=== PATIENT | male | born 1955 | race Caucasian/White ===

== ENCOUNTER → 2017-08-15 10:18 | Outpatient (CLI) | payer OTHER, SELFPAY ==
[2017-08-15 11:44] LABS: ALB/GLOB Ratio 0.8 RATIO (0.9-2.4); AST(SGOT) 29 U/L (15-37); Alanine Aminotransfer ALT/SGPT 42 U/L (16-61); Albumin, Serum 3.5 g/dL (3.2-5.0); Alkaline Phosphatase 47 U/L (45-117); Anion Gap 10 (5-15); BUN 15 mg/dL (7-18); BUN/Creat Ratio 15.9 RATIO (10-20); Calcium,Total 8.8 mg/dL (8.5-10.1); Chloride 105 mmol/L (98-107); Creatinine, Serum 0.94 mg/dL (0.70-1.30); EST Glomerular Filtration Rate 86 mL/min (>60); Est Glom Filt Rate - Afr Amer 104 mL/min (>60); Globulin 4.2 g/dL (2.2-4.2); Glucose 100 mg/dL (74-106); Protein, Total 7.7 g/dL (6.4-8.2); Sodium Level 140 mmol/L (136-145)
== END ==
PROVIDERS: Family Provider Family Medicine; PCP Family Medicine; Visit Provider Nurse Practitioner Family
DX: I10 Essential (primary) hypertension (principal)
CPT/HCPCS: 36415; 80053

== ENCOUNTER → 2017-11-23 10:58 | Outpatient (CLI) | payer OTHER, SELFPAY ==
[2017-11-23 12:15] LABS: Erythrocyte Sedimentation Rate 20 mm/hr (0-20)
[2017-11-23 12:33] LABS: Rheumatoid Factor < 10.0 IU/mL (<15)
== END ==
PROVIDERS: Family Provider Family Medicine; PCP Family Medicine; Referring Provider Family Medicine; Visit Provider Family Medicine
DX: M06.9 Rheumatoid arthritis, unspecified (principal)
CPT/HCPCS: 36415; 85652; 86431

== ENCOUNTER → 2018-08-31 09:03 | Outpatient (CLI) | payer OTHER, SELFPAY ==
[2018-08-31 08:40] VITALS: BMI 35.6
[2018-08-31 12:48] LABS: ALB/GLOB Ratio 0.9 RATIO (0.9-2.4); AST(SGOT) 15 U/L (15-37); Alanine Aminotransfer ALT/SGPT 18 U/L (16-61); Albumin, Serum 3.6 g/dL (3.2-5.0); Alkaline Phosphatase 54 U/L (45-117); Anion Gap 5 (5-15); BUN 19 mg/dL (7-18); BUN/Creat Ratio 21.1 RATIO (10-20); Chloride 104 mmol/L (98-107); EST Glomerular Filtration Rate 90 mL/min (>60); Est Glom Filt Rate - Afr Amer 109 mL/min (>60); Globulin 3.8 g/dL (2.2-4.2); Glucose 88 mg/dL (74-106); Potassium 4.3 mmol/L (3.5-5.1); Protein, Total 7.4 g/dL (6.4-8.2); Sodium Level 138 mmol/L (136-145)
== END ==
PROVIDERS: Family Provider Family Medicine; PCP Family Medicine; Visit Provider Family Medicine
DX: M06.9 Rheumatoid arthritis, unspecified (principal); I10 Essential (primary) hypertension; M19.90 Unspecified osteoarthritis, unspecified site; Z98.1 Arthrodesis status
CPT/HCPCS: 36415; 80053

== ENCOUNTER → 2019-09-13 14:06 | Outpatient (CLI) | payer MEDICARE, SELFPAY ==
[2019-09-13 13:37] VITALS: BMI 34.9
[2019-09-13 15:50] LABS: AST(SGOT) 22 U/L (15-37); Alanine Aminotransfer ALT/SGPT 20 U/L (16-61); Albumin, Serum 3.9 g/dL (3.2-5.0); Alkaline Phosphatase 53 U/L (45-117); Anion Gap 5 (5-15); BUN 20 mg/dL (7-18); BUN/Creat Ratio 17.5 RATIO (10-20); Calcium,Total 9.1 mg/dL (8.5-10.1); Chloride 100 mmol/L (98-107); Creatinine, Serum 1.14 mg/dL (0.70-1.30); EST Glomerular Filtration Rate 68 mL/min (>60); Est Glom Filt Rate - Afr Amer 83 mL/min (>60); Globulin 4.1 g/dL (2.2-4.2); Glucose 123 mg/dL (74-106); Potassium 4.4 mmol/L (3.5-5.1); Sodium Level 136 mmol/L (136-145)
== END ==
PROVIDERS: PCP Family Medicine; Referring Provider Family Medicine; Visit Provider Family Medicine
DX: I10 Essential (primary) hypertension (principal)
CPT/HCPCS: 36415; 80053

== ENCOUNTER 2019-09-28 10:11 | Inpatient (IN) | payer MEDICARE, SELFPAY ==
[2019-09-13 13:37] VITALS: BMI 34.9
[2019-09-28 10:19] VITALS: BP 121/72; PULSE 70; RESP 16; TEMP 36.7; O2SAT 95; BMI 31.1
--- NOTE | 2019-09-28 11:21 | PCM.HP.STD ---
Problem List (1) Eczema Status: Chronic (2) Discoid eczema Status: Acute (3) History of ankle fusion Status: Chronic (4) History of cardiac radiofrequency ablation Status: Chronic (5) Rheumatoid arthritis Status: Chronic Qualifiers: Comment: seronegative (6) Hypertension Status: Chronic Qualifiers: (7) Osteoarthritis Status: Chronic (8) Obstructive sleep apnea Status: Chronic Comment: has a CPAP unit but, unable to tolerate due to sinus pain and nasal congestion (9) Intracranial embolism and thrombosis Status: Acute Comment: MRA on 09/19/2019 at [facility] showed no appreciable flow in the bilateral V4 segments or proximal basilar artery and he underwent emergent thrombectomy and thrombolysis. Both distal vertebral arteries were occluded and had transient stents placed (10) History of multiple cerebrovascular accidents (CVAs) Status: Acute Comment: Occipital lobes, right cerebellar lobe, hippocampal formations and left cerebellar lobe on MRI done 09/19/19.... (11) Restless leg syndrome Status: Chronic Comment: likely due to untreated MAGALIS (12) Diverticulosis Status: Chronic Comment: has also had diverticulitis (13) 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 Status: Chronic (14) History of rheumatic fever as a child Status: Chronic (15) Grade I diastolic dysfunction Status: Chronic (16) Asymmetric septal hypertrophy Status: Chronic (17) Aortic stenosis, mild Status: Chronic Comment: with mild MR History of Present Illness Date of Admission: 09/28/19 Chief Complaint: Debility secondary to multiple embolic CVA's in the posterior circulation Joaquin Solares is a 64 year old M with a past medical history of tobacco dependence in remission (quit 2 years ago and smoked for 35 to 40 years prior to that), essential hypertension, obstructive sleep apnea (unable to tolerate CPAP), restless leg syndrome, seronegative rheumatoid arthritis, eczema, diverticulosis, diverticulitis and history of SVT with cardiac radiofrequency ablation who began to have transient visual disturbances (including hemianopsia), vertigo slurred speech and GODINEZ's in early to mid August. The sx were coming and going and so he did not see his PCP. On 09/14/19 he went to the ED with vertigo and GODINEZ. His BP that day was very elevated. He had a non-contrasted CTB that was negative and so he was sent home. The sx continued to progress until he was unable to walk or speak. He went to [facility] and had a MRI that showed multiple embolic CVA's in the posterior circulation and he was transferred to [facility]. His NIHSS at presentation to [facility] was 29. Imaging showed clot in the basilar artery and he was sent for an emergent Thrombectomy/thrombolysis. He was transferred to [facility] inpt Rehab unit on 09/28/19 for > 3 hours of therapy daily to restore him at or near his prior level of independence/function. [] Past Medical History Past Medical History (Chronic Problems): Chronic Problems (Last Reviewed 09/28/19 @ 12:[address] Chen Tamez DO) Osteoarthritis (Chronic) Obstructive sleep apnea (Chronic) has a CPAP unit but, unable to tolerate due to sinus pain and nasal congestion Restless leg syndrome (Chronic) likely due to untreated MAGALIS Diverticulosis (Chronic) has also had diverticulitis 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 (Chronic) History of rheumatic fever as a child (Chronic) Grade I diastolic dysfunction (Chronic) Asymmetric septal hypertrophy (Chronic) Aortic stenosis, mild (Chronic) with mild MR Eczema (Chronic) History of ankle fusion (Chronic) History of cardiac radiofrequency ablation (Chronic) Rheumatoid arthritis (Chronic) seronegative Hypertension (Chronic) Medical History: Medical History (Last Reviewed 09/28/19 @ 12:[address] Chen Tamez DO) Rheumatoid arthritis (Chronic) M06.9 seronegative Hypertension (Chronic) I10 Allergies No Known Allergies Allergy (Verified 09/13/19 13:33) Home Medications: Ambulatory Orders Medication Instructions Recorded Amlodipine [Norvasc] 5 mg PO DAILY 09/28/19 Aspirin [Aspirin, Baby] 81 mg PO DAILY@0800 09/28/19 Atorvastatin Calcium [Lipitor] 40 mg PO QHS 09/28/19 Clopidogrel Bisulfate [Plavix] 75 mg PO DAILY 09/28/19 Surgical History: Surgical History (Last Reviewed 09/28/19 @ 12:[address] Chen Tamez DO) History of ankle fusion (Chronic) Z98.1 History of cardiac radiofrequency ablation (Chronic) Z98.890 Surgical History: adenoidectomy - thrombectomy and thrombolysis 09/20/19 at [facility] for basilar artery thrombosis, appendectomy - partial colectomy and colostomy (since reversed) for diverticulitis, Hernia repair,, tonsillectomy, - - revision of R ankle fusion, Psychiatric History: No pertinent psych hx Lives: Spouse/ Significant Other - his 's name is Violeta Smoking Status: Former smoker - Quit in 2018, prior to that smoked for about 48 years......started in his mid teens. Tobacco Use: Non-smoker Alcohol: Occasional Drugs: None - *Family History Maternal Family History: Family History (Last Reviewed 09/28/19 @ 13:[address] Chen Tamez DO) Father Sudden cardiac Paternal Family History: Family History (Last Reviewed 09/28/19 @ 13:[address] Chen Tamez DO) Father Sudden cardiac History Items: Heart Disease - His father at the age of 50 due to myocardial infarction. Sibling Family History: Family History (Last Reviewed 09/28/19 @ 13:[address] Chen Tamez DO) Father Sudden cardiac History Items: Hypertension, - - Obstructive sleep apnea in his brother Review of Systems Constitutional: Denies: Chills, Fever, Weight Change Eyes: Reports: Vision Change HEENT: Reports: Nasal Congestion, Visual Changes. Denies: Difficulty Hearing, Difficulty Swallowing, Head Aches, Sinus Congestion, Sinus Drainage, Sore Throat Cardiovascular: Denies: Chest Pain, Edema, Light Headedness, Orthopnea, Palpitations, Syncope Respiratory: Denies: Cough, Shortness of Breath, Shortness of breath at rest, Shortness of breath upon exertion, Sputum production, Wheezing Gastrointestinal: Denies: Abdominal Pain, Constipation, Diarrhea, Nausea, Vomiting Genitourinary: Reports: Hesitancy, Retention. Denies: Dysuria Musculoskeletal: Reports: Joint Pain - CHRONIC DUE TO PRIOR SURGERY ON THE RIGHT ANKLE AND HX OF SERONEGATIVE RA, Joint stiffness. Denies: Joint Tenderness, Neck Pain Skin: Denies: Jaundice, Rash, Wounds Neurological: Reports: Balance problems, Confusion. Denies: Double vision, Slurred speech, Difficulty swallowing, Focal weakness, Numbness, Tingling, Tremor, Seizures Psychiatric: Denies: Anxiety, Depression, Homicidal Ideations, Suicidal Ideations Endocrine: Denies: Change in Body Habitus, Hx of Irradiation, Hx of Thyroiditis Hematologic/ Lymphatic: Denies: Easy Bruising, Easy Bleeding, Hx of blood clot VTE Information - Inpt Only VTE Present on Admission: No VTE Mechan Device Prophylaxis: SCD's VTE Pharm Prophylaxis ordered?: Yes Patient Problems: Active and Suspected Problems (Last Reviewed 09/28/19 @ 12:[address] Chen Tamez DO) Intracranial embolism and thrombosis (Acute) MRA on 09/19/2019 at [facility] showed no appreciable flow in the bilateral V4 segments or proximal basilar artery and he underwent emergent thrombectomy and thrombolysis. Both distal vertebral arteries were occluded and had transient stents placed History of multiple cerebrovascular accidents (CVAs) (Acute) Occipital lobes, right cerebellar lobe, hippocampal formations and left cerebellar lobe on MRI done 09/19/19.... - Physical Exam Vitals/I&O's: Vital Signs Temp Pulse Resp BP Pulse Ox 98.0 F 70 16 121/72 H 95 09/28/19 10:19 09/28/19 10:19 09/28/19 10:19 09/28/19 10:19 09/28/19 10:19 Oxygen Delivery Method Room Air Body Mass Index (BMI) 34.9 General: Alert, Cooperative, Well developed, Well nourished, Confused, - - oriented to person HEENT: Atraumatic, PERRLA, EOMI, Normocephalic Oral: No Gingival or Mucosal Lesions/ Ulcerations, Dry Mucosa Neck: Supple, No JVD, Negative Carotid Bruits, No Nodes, Trachea Midline Lungs: Clear to auscultation, No rhonchi, No wheeze, No rales Cardiovascular: Regular rate, Regular Rhythm, Normal S1, Normal S2, Murmur - Systolic murmur at the second right intercostal space 2/6 with radiation to the lower left sternal border and apex, No rub noted, No Gallop Abdomen: Bowel Sounds Present, Soft, Non Tender, Non-Distended, - - No guarding with palpation Extremities: No clubbing, No cyanosis, No edema, No Calf Tenderness, Diminished Peripheral Pulses - In the lower extremities Skin: No rashes, No breakdown Musculoskeletal: No Muscle Wasting Neurological: Cranial nerves II-XII grossly intact, Motor Exam 5/5 strength throughout, Unsteady Gait, - - NIHSS today is 3. No ataxia. He has visual field cut in the upper outer R eye and the medial upper visual field cut on the left. no neglect, intact sensation to BL arms and legs Psych/Mental Status: Depressed, Impulsive, - - confused Assessment/Plan All Active Problems (Last Reviewed 09/28/19 @ 12:[address] Chen Tamez, DO) Intracranial embolism and thrombosis (Acute) History of multiple cerebrovascular accidents (CVAs) (Acute) Discoid eczema (Acute) Impressions 1. Debility due to multiple embolic CVA's in the posterior circulation Due to an occluded basilar artery. S/P thrombectomy and thrombolysis. 2. Cognitive dysfunction due to CVA's with confusion, memory difficulties, impulsivity and poor safety awareness 3. MAGALIS - has CPAP but, does not wear it because it causes nasal congestion and sinus pain 4. hx of SVT - S/P radiofrequency ablation 5. Seronegative RA 6. Nummular eczema 7. Osteoarthritis 8. Diverticulosis with hx of diverticulitis resulting in a partial colectomy and colostomy which has since been reversed. 9. + hx of rheumatic fever as a child 10. Heart MM - suspect due to 11. FH of CVD with his dad dying at age 50 of an RI 12. HTN 13. RLS - suspect due to untreated MAGALIS 14. BPH suspected due to hesitancy and the sensation that he does not empty his bladder PLAN PT for gait stability OT for ADL's ST for evaluation Analgesics as needed Bowel protocol Fall precautions He is very impulsive and already has taken the alarm off......and attempted to get up and walk around the room Assess for Anxiety/Depression DVT prophylaxis with Lovenox Follow up with Dr. Elliott, neurology and Dr. Morales following DC from IP Rehab AM lab including CMP, CBC, Mag, Phos and a lipid panel Obtain the op report for the thrombectomy, Discharge summary and ECHO report He has untreated sleep apnea and multiple embolic strokes - will need an event monitor at some point post DC He will wear oxygen at 2 L/min anytime he is sleeping and his is going to locate and bring in his CPAP unit. Will start Atrovent nasal spray 2 sprays each nostril nightly and twice daily PRN during the day to combat nasal congestion. Await the post void residuals and results of orthostatic vital signs to start an agent for suspected BPH. Will need referral to cardiology post DC to follow and asymmetric septal hypertrophy NIH today is a 3 MRS is +4 for severe debility due to cognition Inpatient E&M: 89864 Init Hosp L3
--- NOTE | 2019-09-28 11:56 | CASEMGMT ---
Social Work Discussed code status with pt. Pt confirmed full code. Completed PHQ-9: score 13/27. Pt tearful during assessment and PHQ-9. Pt expressed this is not normal for him, he is not an emotional or sensitive person. He also stated he has trouble staying asleep and poor appetite, which is also not normal. Physician notified. Pt having trouble word finding and with ST memory. Pt stated he is a smoker, but intervened and stated he quit years ago. Normalized all feelings and changes as they are consistent with stroke. Provided stroke support group info, emotional support and offered counseling resources at [place], if needed. Pt appreciative. Will continue to follow. Daniella Thomas, CLUBHOUSE ATTENDANT VIDEO TAPE TRANSFERRER
--- NOTE | 2019-09-28 14:28 | PCM.RU.PYE ---
Admission Information Primary Diagnosis:: Debility secondary to multiple posterior circulation embolic CVAs due to occluded basilar artery. Status Changes from Prescreening?: No changes Identified Actual Problem List:: Cognitve Impr/Memory Loss, Depression, Mobility Impaired, Self Care Deficit, Know.Dfct/Disease Process, Know.Dfct of Medicaitons, BP, Hypertension, Alteration-Leisure Activ. Potential Problem List:: DVT, Bleeding, Infection, UTI, Aspiration, Falls, Skin Integrity, Depression Risk of Complications DVT: LMWH, BERNABE Hose Bleeding: Monitor Lab Values, Nursing to Teach Precautions for anti-coagulation therapy., Wound, if applicable, to be assessed every shift., Stroke patients assessed for lethargy or change in status. Infection: Clinical Staff to Monitor for S/S of infection:, S/S of infection include fever, redness, warmth, etc. Urinary Tract Infection: Monitor for frequency, burning, discomfort, or incontinence., Nursing will obtain urine sample for urinalysis and C&S when ordered. Aspiration: Clinical staff will monitor for coughing, drooling, congestion., Speech will evaluate swallowing and dsyphasia., Nursing will monitor patient swallowing during meals. Falls: Patient will be evaluated for Fall Precautions, Patient will be placed on Fall Precautions as indicated per protocol. Skin Breakdown: Nursing will assess skin daily using assessment tool., Nursing will place on Skin Breakdown Precautions as indicated. Pain: Clinical staff will assess patient's pain level per protocol., Medications will be given, if needed, and the pain level reassessed., Other methods: Massage, distraction, decrease stimulus, etc. used PRN. Plan of Care Patient requires physician specializing in physical medicine and rehab oversight to provide close medical supervision of rehab issues including: Pain Management, Sleep Problems, Bowel and Bladder, Medical and co-morbidity Management, DVT prophylaxis, Rehabilitation Leadership, Coordination of treatment team Patient needs Physical Therapy: For a minimum of 1 hour, At least 5 out of 7 days Patient needs Physical Therapy to improve:: Mobility, Mobility, Mobility, Strengthening, Transfers, Stretching, ROM, Endurance, Stairs, Gait, Balance Patient needs Occupational Therapy: For a minimum of 1 hour, At least 5 out of 7 days Patient needs Occupational Therapy to improve ADL's incl.: Eating, Grooming, Bathing, Dressing, Toileting, Toilet transfers, Community Reintegration, Higher functioning activities, Household tasks, Adaptive Equipment, Splinting, Other activities as determined Patient requires speech therapy: For a minimum of 1 hour, At least 5 out of 7 days Patient requires speech therapy for: Cognition, Language Skills, Compensatory Strategies Patient requires 24/ Rehabilitation Nursing for: Pain Issues, Identifying and preventing risk factors, Monitoring and reporting current medical conditions, Assisting with ambulation, transfer, and all ADL's, Teaching patients about disease process and medications, Family teaching, Providing safe environment, Bowel and Bladder Issues, Skin integrity, Medication Management Patient needs Monument Letterer/ Case Management for: Discharge Planning, Arranging Home Equipment or Services, Family Interventions Patient needs Dietary and Nutrition Services for: Adequate Nutrition, Nutritional Supplements, Nutritional Education Goals Patient will remain: free from falls, or injury at time of discharge. Patient will perform bed mobility at: MOD I level of assist. Patient will complete transfers from bed to chair at: MOD I level of assist. Patient will ambulate: with MOD I assist, with LRD, - - 500 feet Patient will propel wheelchair: - - N/A Patient will complete upper body dressing at: MOD I level of assist. Patient will complete lower body dressing at: MOD I level of assist. Patient will complete toileting at: MOD I level of assist. Patient will perform bathing at: MOD I level of assist. Patient will complete grooming at: MOD I level of assist. Patient will complete home management skills at: MOD I level of assist. Patient will achieve: at MOD I assist, - - 14 stairs Patient will have pain level of: of 3 or less Patient's skin will: remain intact, free from infection. Patient will receive: adequate nutrition. Discharge Planning Pt Prognosis for Sig. Practical Improv. w/in Reasonable Time: Good Estimated Length of stay (days): 18 Anticipated D/C Destination: Home with Outpt Therapy Was Preadmission Assessment Accurate?: Yes
[2019-09-28 19:22] VITALS: O2SAT 98
[2019-09-28] MEDS: Ipratropium Bromide 0.06% NASAL SPRAY 2 SPRAY NASAL (19:33)
[2019-09-28] MEDS: Atorvastatin Calcium 40 MG Tablet PO (19:34)
[2019-09-28 20:36] VITALS: BP 120/54; PULSE 61; RESP 18; TEMP 37.2; O2SAT 95
[2019-09-29] MEDS: Enoxaparin 40 MG/0.4 ML Syringe SC (06:47)
[2019-09-29 07:00] LABS: Hematocrit 42.1 % (40-54); Hemoglobin 13.3 g/dL (13.0-16.5); Mean Corp Hgb Conc 31.6 g/dL (32-36); Mean Corpuscular Hgb 27.9 pg (27.0-32.0); Mean Corpuscular Volume 88.3 fL (80-94); Mean Platelet Vol. 10.9 fl (6.2-12.0); Platelet Count 227 K/mm3 (150-450); RBC Distribution Width SD 41.5 fl (35.1-43.9); Red Blood Count 4.77 M/mm3 (4.6-6.2); White Blood Count 8.1 K/mm3 (4.4-11.0)
[2019-09-29 07:39] LABS: ALB/GLOB Ratio 0.8 RATIO (0.9-2.4); AST(SGOT) 26 U/L (15-37); Alanine Aminotransfer ALT/SGPT 24 U/L (16-61); Albumin, Serum 3.3 g/dL (3.2-5.0); Alkaline Phosphatase 60 U/L (45-117); Anion Gap 5 (5-15); BUN 12 mg/dL (7-18); BUN/Creat Ratio 12.8 RATIO (10-20); Calcium,Total 8.8 mg/dL (8.5-10.1); Chloride 110 mmol/L (98-107); Cholesterol 135 mg/dL (200); Creatinine, Serum 0.94 mg/dL (0.70-1.30); EST Glomerular Filtration Rate 85 mL/min (>60); Est Glom Filt Rate - Afr Amer 103 mL/min (>60); Estimated Creatinine Clearance 84.85 ml/min; Globulin 3.9 g/dL (2.2-4.2); Glucose 93 mg/dL (74-106); High Density Lipoprotein 35 mg/dL; Magnesium 2.4 mg/dL (1.6-2.6); Potassium 4.5 mmol/L (3.5-5.1); Protein, Total 7.2 g/dL (6.4-8.2); Sodium Level 142 mmol/L (136-145); Triglycerides 125 mg/dL; Very Low Density Lipoprotein 25 mg/dL (5-40)
[2019-09-29 08:00] VITALS: BP 135/72; BP 137/71; BP 143/86; PULSE 69; PULSE 70; PULSE 86
[2019-09-29 10:00] VITALS: BP 135/72; PULSE 69; RESP 16; TEMP 36.8; O2SAT 96
[2019-09-29] MEDS: Clopidogrel Bisulfate 75 MG Tablet PO (10:21)
[2019-09-29] MEDS: amLODIPine 5 MG Tablet PO (10:21)
[2019-09-29] MEDS: Aspirin 81 MG TAB.CHEW PO (10:21)
[2019-09-29 14:25] VITALS: O2SAT 96
[2019-09-29 19:00] VITALS: BP 139/80; PULSE 68; RESP 16; TEMP 36.4; O2SAT 96
[2019-09-29 19:52] VITALS: RESP 18
[2019-09-29] MEDS: Atorvastatin Calcium 40 MG Tablet PO (20:05)
[2019-09-29] MEDS: Ipratropium Bromide 0.06% NASAL SPRAY 2 SPRAY NASAL (20:05)
[2019-09-30] MEDS: Enoxaparin 40 MG/0.4 ML Syringe SC (05:20)
[2019-09-30] MEDS: Aspirin 81 MG TAB.CHEW PO (07:15)
[2019-09-30] MEDS: amLODIPine 5 MG Tablet PO (07:16)
[2019-09-30] MEDS: Clopidogrel Bisulfate 75 MG Tablet PO (07:16)
[2019-09-30 07:28] VITALS: BP 105/67; PULSE 59; RESP 18; TEMP 36.6; O2SAT 94
[2019-09-30 19:00] VITALS: BP 101/62; PULSE 73; RESP 16; TEMP 36.4; O2SAT 96
--- NOTE | 2019-09-30 19:30 | NURSING ---
1920 During rounding, found patient to be self-ambulating with walker around room. Patient said he had already gone to the bathroom. Patient had removed personal alarm. This RN reminded patient to use call light when he needs to get up. Personal alarm and pad alarm checked and armed. Hi low bed lowered to floor. Patient resting in bed.
[2019-09-30] MEDS: Atorvastatin Calcium 40 MG Tablet PO (19:49)
[2019-09-30] MEDS: Ipratropium Bromide 0.06% NASAL SPRAY 2 SPRAY NASAL (19:49)
[2019-10-01] MEDS: Enoxaparin 40 MG/0.4 ML Syringe SC (05:38)
[2019-10-01 07:00] VITALS: BP 149/74; PULSE 60; RESP 18; TEMP 36.9; O2SAT 98
[2019-10-01] MEDS: Clopidogrel Bisulfate 75 MG Tablet PO (07:26)
[2019-10-01] MEDS: amLODIPine 5 MG Tablet PO (07:26)
[2019-10-01] MEDS: Aspirin 81 MG TAB.CHEW PO (07:26)
--- NOTE | 2019-10-01 11:10 | NURSING ---
This nurse entered pt's room tho find him self transferring for recliner to bed. Pt removed PA. Pt stated I shut that off my self. Assisted pt to bed and reeducated on the need to use the call light for assistance. PA applied and pressure alarm place under pt. call light in reach. demonstrated pt on how to use call light for assistance.
--- NOTE | 2019-10-01 11:58 | PCM.PN.BLA ---
Progress Note Blaine was seen on team rounds today. His Violeta was present for rounds. Afebrile VSS Maintaining appropriate oxygen saturation on RA Oral intake is fair to good Discussed with nursing - no problems that need addressed Reviewed the PT/OT/ST notes Medication list reviewed. No complaints other than having trouble sleeping. Still very impulsive and continually setting off alarm or actually removing the alarm to walk out into the [place]. Very forgetful. Continually looking at his for answers to questions. alert, making good eye contact with whoever is speaking to him Lungs -CTA HRRR, no change in the MM abd - soft and NT no ankle edema Impressions 1. Debility post posterior circulation embolic CVA's with persistent vertigo, memory loss and increased impulsivity 2. Sleep disturbance-suspected depression 3. History of rheumatic fever as a child with aortic stenosis 4. Untreated sleep apnea 5. Suspected atrial fibrillation 6. Low HDL with an LDL of 75-on atorvastatin Start mirtazapine 15 mg nightly tonight Continue statin, clopidogrel and aspirin. Event monitor at discharge Follow-up with cardiology post discharge Follow-up with neurology post discharge His brought his CPAP unit in today. After respiratory checks the machine will initiate use tonight. Atrovent nasal spray 2 squirts each nostril at bedtime to help with nasal congestion that develops with use of the CPAP.......... will have him follow-up with pulmonary medicine post discharge Inpatient E&M: 71710 Subs Hosp L2
--- NOTE | 2019-10-01 15:37 | CASEMGMT ---
Social Work IDT met with patient and for Team meeting. Discussed patient's progress in therapy. Pt is CGA to sit to stand, min for SPT, 165 ft CGA for FWW, trialed w/o FWW but unsteady, min for shower transfer and toileting, min for bathing, UE set up, mod for LE dressing. Pt had loss of balance twice during personal care routine. ST working with pt on strategies for attention, orientation. Pt has deficits with ST memory, recall, word finding, problem solving, impulsivity. Pt is not sleeping well, has poor insight to deficits. Physician explained pt's major deficits from stroke is vertigo, memory and impulsivity. Physician started pt on antidepressant. Explained [facility] insurance with [employer] 10/08 and continued stay is not guaranteed. The goal is for pt to return home with . Will continue to follow. Daniella Thomas, DARBY REPRODUCTION MACHINE LOADER
[2019-10-01] MEDS: Ipratropium Bromide 0.06% NASAL SPRAY 2 SPRAY NASAL (19:50)
[2019-10-01] MEDS: Atorvastatin Calcium 40 MG Tablet PO (19:50)
[2019-10-01] MEDS: Mirtazapine 15 MG Tablet PO (19:50)
[2019-10-01 19:56] VITALS: BP 142/78; PULSE 67; RESP 16; TEMP 36.9; O2SAT 96
--- NOTE | 2019-10-02 02:06 | ED.RN ---
cpap placed on pt multiple times during night but he wears a short time and then removes.
[2019-10-02] MEDS: Enoxaparin 40 MG/0.4 ML Syringe SC (05:32)
[2019-10-02 07:17] VITALS: O2SAT 95
[2019-10-02] MEDS: Aspirin 81 MG TAB.CHEW PO (07:47)
[2019-10-02] MEDS: amLODIPine 5 MG Tablet PO (07:47)
[2019-10-02] MEDS: Clopidogrel Bisulfate 75 MG Tablet PO (07:48)
[2019-10-02 08:59] VITALS: BP 123/59; PULSE 61; RESP 16; TEMP 36.9; O2SAT 97
[2019-10-02] MEDS: Ipratropium Bromide 0.06% NASAL SPRAY 2 SPRAY NASAL (20:06)
[2019-10-02] MEDS: Mirtazapine 15 MG Tablet PO (20:08)
[2019-10-02] MEDS: Atorvastatin Calcium 40 MG Tablet PO (20:08)
[2019-10-02 21:38] VITALS: BP 145/71; PULSE 67; RESP 17; TEMP 36.7; O2SAT 100
[2019-10-03] MEDS: Enoxaparin 40 MG/0.4 ML Syringe SC (05:24)
[2019-10-03 07:11] VITALS: O2SAT 99
[2019-10-03] MEDS: amLODIPine 5 MG Tablet PO (07:41)
[2019-10-03] MEDS: Aspirin 81 MG TAB.CHEW PO (07:41)
[2019-10-03] MEDS: Clopidogrel Bisulfate 75 MG Tablet PO (07:41)
[2019-10-03 08:32] VITALS: BP 128/74; PULSE 57; RESP 16; TEMP 37; O2SAT 98
--- NOTE | 2019-10-03 15:47 | PCM.PN.BLA ---
Progress Note Afebrile VSS-systolic blood pressure has occasionally increased mildly since admission. The systolic blood pressure over the past 48 hours has ranged from 1 23-1 49. Heart rate has ranged from 57-67 over the past 48 hours. Maintaining appropriate oxygen saturation on RA. Hsi CPAP was brought in by his . His sleep study was about 20 years ago and he tells me he has gained wt since then. He has been able to tolerate wearing the CPAP most of the night with the addition of Atrovent nasal spray at bedtime. Oral intake is very good Discussed with nursing - no problems that need addressed. He is less impulsive and they need to be in his room much less than over the weekend. He understands why the alarms are necessary. Reviewed the PT/OT/ST notes -he is progressing nicely in all aspects of therapy. Speech has significantly improved. He is now able to remember that both he and his are retired. He still does not recall many of the events around the stroke. Medication list reviewed. He is complaining that he has had difficulty falling asleep at night and generally wakes up 3-4 times at night and has trouble falling asleep. He denies cephalgia, nausea, abdominal pain, shortness of breath, chest pain, lightheadedness. Alert, oriented to place, person, month and year but cannot tell me the date. He is pleasant and able to participate in conversation and make good eye contact with me. Lungs-clear to auscultation Heart-no change in the systolic murmur at the second right intercostal space, regular, heart rate within normal limits, no gallop. Abdomen-obese, soft, nontender to palpation, bowel sounds present No peripheral edema No calf tenderness No rashes, no skin breakdown 1. Debility post posterior circulation embolic CVA's with persistent vertigo, memory loss and increased impulsivity. He denies vertigo today and the impulsivity is improving. He is setting off the bed alarm much less but he is now using his feet to roll the recliner all around his room without getting up and setting off the bed alarm 2. Sleep disturbance-suspected depression....He is tolerating the Remeron without any adverse side effects. Mood is good and I do not want to contribute to weight gain so I will add Trazodone at HS to the current drug regimen 3. History of rheumatic fever as a child with aortic stenosis 4. Untreated sleep apnea - tolerating the CPAP now with the addition of the Atrovent nasal spray BUT, the sleep study was about 20 years ago. May not be enough pressure since he has gained weight. 5. Suspected atrial fibrillation - 30 day event monitor at MD 6. Low HDL with an LDL of 75-on atorvastatin 7. insomnia overnight trending pulse ox on CPAP tonight. Add Trazodone. Inpatient E&M: [id number] Subs Hosp L2
--- NOTE | 2019-10-03 16:48 | NURSING ---
pt unlocking recliner and wheeling around the room. Recliner switched out for recliner with locking wheels. in room with pt and watching him. pt reeducated on using call light for assistance. asked if she could walk pt in [place]. and pt reeducated on staff only for transfers. Pt ambulated in [place] with staff.
[2019-10-03 20:00] VITALS: BP 136/73; PULSE 69; RESP 18; TEMP 36.5; O2SAT 97
[2019-10-03] MEDS: Mirtazapine 15 MG Tablet PO (20:06)
[2019-10-03] MEDS: traZODone 50 MG Tablet PO (20:06)
[2019-10-03] MEDS: Atorvastatin Calcium 40 MG Tablet PO (20:06)
[2019-10-03] MEDS: Ipratropium Bromide 0.06% NASAL SPRAY 2 SPRAY NASAL (20:06)
[2019-10-03 22:12] VITALS: PULSE 67; O2SAT 97
[2019-10-04] MEDS: Enoxaparin 40 MG/0.4 ML Syringe SC (05:17)
[2019-10-04] MEDS: Clopidogrel Bisulfate 75 MG Tablet PO (07:28)
[2019-10-04] MEDS: Aspirin 81 MG TAB.CHEW PO (07:28)
[2019-10-04] MEDS: amLODIPine 5 MG Tablet PO (07:28)
[2019-10-04 08:12] VITALS: BP 138/72; PULSE 65; RESP 18; TEMP 36.3; O2SAT 97
--- NOTE | 2019-10-04 12:19 | PCM.PN.BLA ---
Progress Note slept well last night with the addition of Trazodone at HS. No complaints today Afebrile Vital signs stable, blood pressure controlled maintaining appropriate oxygen saturation on room air I reviewed the Overnight trending pulse ox (done while he was wearing his CPAP). 99.65% of the time the pulse ox was greater than 89 %. 0.34% of the time the pulse ox ranged from 83% to 89%. Approximately 60% of the time he was sleeping his heart rate ranged from 50-59. The lowest heart rate was 31 bpm and that was for 0.01%. He is still impulsive and forgetful and taking his alarm off and getting up and walking around his room. Denies cephalgia, pain, nausea, vertigo, palpitations, shortness of breath. Mucous membranes are moist Alert, no apparent distress Lungs-clear to auscultation Heart-regular rate and rhythm No peripheral edema No calf tenderness Impressions 1. 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 2. Insomnia-improved with the addition of trazodone to his drug regimen. 3. Aortic stenosis with a history of rheumatic fever as a child 4. Obstructive sleep apnea-able to tolerate his CPAP unit since the nasal congestion is controlled with Atrovent nasal spray. I still recommend that he follow-up with pulmonary as an outpatient. 5. SPECT at atrial fibrillation 6. Dyslipidemia 7. Hypertension currently controlled with 5 mg of amlodipine Continue therapy Inpatient E&M: [id number] [facility] L1
[2019-10-04 19:45] VITALS: BP 133/81; PULSE 68; RESP 16; TEMP 36.5; O2SAT 99
[2019-10-04] MEDS: Mirtazapine 15 MG Tablet PO (20:35)
[2019-10-04] MEDS: traZODone 50 MG Tablet PO (20:35)
[2019-10-04] MEDS: Atorvastatin Calcium 40 MG Tablet PO (20:35)
[2019-10-04] MEDS: Ipratropium Bromide 0.06% NASAL SPRAY 2 SPRAY NASAL (20:35)
[2019-10-05] MEDS: Enoxaparin 40 MG/0.4 ML Syringe SC (05:33)
[2019-10-05 07:58] VITALS: BP 129/78; PULSE 63; RESP 17; TEMP 36.7; O2SAT 98
[2019-10-05] MEDS: Clopidogrel Bisulfate 75 MG Tablet PO (07:58)
[2019-10-05] MEDS: Aspirin 81 MG TAB.CHEW PO (07:58)
[2019-10-05] MEDS: amLODIPine 5 MG Tablet PO (07:58)
[2019-10-05 19:23] VITALS: BP 136/83; PULSE 99; RESP 16; TEMP 36.5; O2SAT 99
[2019-10-05] MEDS: Atorvastatin Calcium 40 MG Tablet PO (20:39)
[2019-10-05] MEDS: Mirtazapine 15 MG Tablet PO (20:39)
[2019-10-05] MEDS: Ipratropium Bromide 0.06% NASAL SPRAY 2 SPRAY NASAL (20:39)
[2019-10-05] MEDS: traZODone 50 MG Tablet PO (20:39)
[2019-10-06] MEDS: Enoxaparin 40 MG/0.4 ML Syringe SC (07:19)
[2019-10-06 07:20] VITALS: BP 138/74; PULSE 67; RESP 18; TEMP 36.8; O2SAT 96
[2019-10-06] MEDS: amLODIPine 5 MG Tablet PO (07:31)
[2019-10-06] MEDS: Clopidogrel Bisulfate 75 MG Tablet PO (07:31)
[2019-10-06] MEDS: Aspirin 81 MG TAB.CHEW PO (07:31)
[2019-10-06 19:56] VITALS: BP 133/70; PULSE 79; RESP 16; TEMP 37.2; O2SAT 96
[2019-10-06] MEDS: Mirtazapine 15 MG Tablet PO (20:28)
[2019-10-06] MEDS: traZODone 50 MG Tablet PO (20:28)
[2019-10-06] MEDS: Atorvastatin Calcium 40 MG Tablet PO (20:28)
[2019-10-06] MEDS: Ipratropium Bromide 0.06% NASAL SPRAY 2 SPRAY NASAL (20:28)
--- NOTE | 2019-10-06 22:05 | NURSING ---
Cpap placed on pt. Pt agreeable to wearing device through the night. Will continue to monitor use.
[2019-10-07] MEDS: Enoxaparin 40 MG/0.4 ML Syringe SC (06:18)
[2019-10-07 07:26] VITALS: BP 140/83; PULSE 83; RESP 16; TEMP 36.8; O2SAT 97
[2019-10-07] MEDS: Clopidogrel Bisulfate 75 MG Tablet PO (07:29)
[2019-10-07] MEDS: Aspirin 81 MG TAB.CHEW PO (07:29)
[2019-10-07] MEDS: amLODIPine 5 MG Tablet PO (07:29)
[2019-10-07] MEDS: Ipratropium Bromide 0.06% NASAL SPRAY 2 SPRAY NASAL ×3 (07:30→20:04)
--- NOTE | 2019-10-07 09:19 | PCA ---
Pt. ambulated in halls x2 laps with this NAIL WELTER as contact guard assist.
[2019-10-07 19:21] VITALS: BP 138/76; PULSE 81; RESP 16; TEMP 37; O2SAT 98
[2019-10-07 20:09] VITALS: PULSE 81; RESP 16
[2019-10-07] MEDS: traZODone 50 MG Tablet PO (20:16)
[2019-10-07] MEDS: Atorvastatin Calcium 40 MG Tablet PO (20:16)
[2019-10-07] MEDS: Mirtazapine 15 MG Tablet PO (20:16)
--- NOTE | 2019-10-08 01:50 | NURSING ---
Reviewed and agree with MAIL SUPERINTENDENT documentation and charting.
[2019-10-08] MEDS: Enoxaparin 40 MG/0.4 ML Syringe SC (06:22)
[2019-10-08 07:25] VITALS: BP 139/86; PULSE 75; RESP 16; TEMP 36.7; O2SAT 94
[2019-10-08] MEDS: Clopidogrel Bisulfate 75 MG Tablet PO (07:37)
[2019-10-08] MEDS: Aspirin 81 MG TAB.CHEW PO (07:37)
[2019-10-08] MEDS: amLODIPine 5 MG Tablet PO ×2 (07:37→10:47)
--- NOTE | 2019-10-08 10:34 | CASEMGMT ---
Social Work IDT met with patient and for Team meeting. Discussed patient's progress in therapy. Pthas walked with a cane, and now trialed walking w/o a device at CGA. Pt doing well but when he gets tired, the gait pattern changes. Pt completed 5 steps SBA to CGA. The goal is to be safe walking without a device. Pt is SBA for all ADLs. OT gave pt 5 step commands and pt was able to recall all commands. ST working on using external strategies to improve ST memory. Pt's orientation is improving. Recommending 24/ supervision. concerned about his decision making and safety. Recommended getting video monitor in the home to ensure pt safety. Pt is sleeping better. IDT recommending about one more week to ensure consistency with task improvement. to come in 10/10 for shared cared to ensure she can care for pt at home. Explained insurance update 10/08. Will continue to follow. Daniella Thomas, DARBY CAMPW
--- NOTE | 2019-10-08 12:27 | PCM.PN.BLA ---
Progress Note Blaine was seen on team rounds today. His Violeta was present for rounds. Afebrile VSS-systolic blood pressures consistently greater than 135. The goal for blood pressure management is less than 130/80. Maintaining appropriate oxygen saturation on RA Oral intake is excellent Discussed with nursing - no problems that need addressed Reviewed the PT/OT/ST notes - he is now using a cane to ambulate. Memory is improving but, he is still impulsive and will need 24 H supervision at [place]. Medication list reviewed. made the comment that his appetite is voracious. She asked whether he was on Steroids and I assured he was not however he was started on Remeron at admission due to depression and trouble sleeping and this can stimulate appetite. Blaine denies pain, SOB, N/V/cephalgia. He is still c/o nasal congestion with use of the CPAP and refused to wear it last night. He is sleeping well on Trazodone and Remeron. OT reports he did his shower and AM ADL's with supervision today. Alert, oriented X 3. Lungs - CTA HRRR, no gallop abd - soft and NT no peripheral edema Impressions 1. 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 2. Insomnia-improved with the addition of trazodone to his drug regimen. 3. Aortic stenosis with a history of rheumatic fever as a child 4. Obstructive sleep apnea- continues to c/o nasal congestion......tubing is not humidified. He is on Atrovent nasal spray at . 5. Suspect paroxysmal atrial fibrillation - possibly due to untreated sleep apnea 6. Dyslipidemia 7. Hypertension - systolic is consistently still > 135 Increase the amlodipine to 10 mg daily to achieve BP < 130/80 30 day event monitor at [place] reminded him and Violeta that untreated sleep apnea causes PAF and is associated with increased risk for stroke Encouraged him to follow up with Dr. Elliott or Dr. Morrison at [place] and will order and overnight split study in the sleep lab for discharge when we know the date of CO Inpatient E&M: Subs Hosp L2
[2019-10-08] MEDS: Ipratropium Bromide 0.06% NASAL SPRAY 2 SPRAY NASAL (20:48)
[2019-10-08 20:50] VITALS: BP 142/86; PULSE 95; RESP 16; TEMP 36.6; O2SAT 97
[2019-10-08] MEDS: traZODone 50 MG Tablet PO (20:53)
[2019-10-08] MEDS: Atorvastatin Calcium 40 MG Tablet PO (20:53)
[2019-10-08] MEDS: Mirtazapine 15 MG Tablet PO (20:53)
[2019-10-08] MEDS: Oxymetazoline 0.05% 1 SPRAY SPRAY.BTL 2 SPRAY NASAL (20:57)
--- NOTE | 2019-10-08 21:49 | NURSING ---
2100 pt applied his c-pap and a leak could be heard, staff asked respiratory to check mask. pt asked to therapist if he had to wear the mask at all
--- NOTE | 2019-10-08 22:49 | NURSING ---
2200 staff doing rounds and found pt sleeping soundly with c-pap off . pt declined to put back on when asked, stating that he was fine
--- NOTE | 2019-10-09 04:17 | NURSING ---
reviewed and agree with GANG PUSHER assessment and functionals.
[2019-10-09] MEDS: Enoxaparin 40 MG/0.4 ML Syringe SC (06:00)
[2019-10-09 07:45] VITALS: BP 132/82; PULSE 70; RESP 17; TEMP 36.6; O2SAT 95
[2019-10-09] MEDS: amLODIPine 10 MG Tablet PO (07:46)
[2019-10-09] MEDS: Aspirin 81 MG TAB.CHEW PO (07:46)
[2019-10-09] MEDS: Clopidogrel Bisulfate 75 MG Tablet PO (07:46)
[2019-10-09] MEDS: Ipratropium Bromide 0.06% NASAL SPRAY 2 SPRAY NASAL (20:27)
[2019-10-09 20:45] VITALS: BP 123/72; PULSE 98; RESP 18; TEMP 36.9; O2SAT 98
[2019-10-09] MEDS: traZODone 50 MG Tablet PO (22:00)
[2019-10-09] MEDS: Mirtazapine 15 MG Tablet PO (22:00)
[2019-10-09] MEDS: Atorvastatin Calcium 40 MG Tablet PO (22:00)
[2019-10-09] MEDS: Oxymetazoline 0.05% 1 SPRAY SPRAY.BTL 2 SPRAY NASAL (22:00)
--- NOTE | 2019-10-10 04:05 | NURSING ---
REVIEWED AND AGREE WITH FOOD MOBILE DRIVER'S FUNCTIONAL ASSESSMENT AND HANDOFF CHARTING.
[2019-10-10] MEDS: Enoxaparin 40 MG/0.4 ML Syringe SC (05:44)
[2019-10-10 08:05] VITALS: BP 142/81; PULSE 85; RESP 18; TEMP 36.9; O2SAT 96
[2019-10-10] MEDS: Clopidogrel Bisulfate 75 MG Tablet PO (08:47)
[2019-10-10] MEDS: Aspirin 81 MG TAB.CHEW PO (08:48)
[2019-10-10] MEDS: amLODIPine 10 MG Tablet PO (08:48)
--- NOTE | 2019-10-10 09:28 | PCM.PN.BLA ---
Progress Note Nursing alerted me to some redness of the L great toe with mild pain. He has been afebrile. He has no hx of gout. There is no FH of gout. He was recently weighed again and he has gained 5 lb since admission to the rehab unit Blood pressure is coming down with the increase in the amlodipine to 10 mg daily. Blood pressure at at bedtime last night was 123/72 and the blood pressure this a.m. is 142/81. He is sleeping well at night He is alert and has no other complaints. Denies CP, cough, SOB, calf pain, groin pain, cephalgia. Lungs - CTA HRRR, no gallop abd - soft, NT, no enlarged lymph nodes in the left groin. The L great toe has some patchy erythema on the dorsum of the toe and this extends to the medial toe. There are no openings in the skin and there is no DC. There is increased warmth to touch. The first R MTP is not red and I can squeeze the joint with no significant pain. It looks as though he may have had an abrasion on the dorsum of the toe, near the nail bed. No edema and no calf pain. Impressions 1. Post stroke debility 2. Cellulitis of the left great toe 3. weight gain - suspect the Remeron has increased his appetite. 4. Insomnia - resolved with the addition of Trazodone to the drug regimen. 5. HTN - coming under better control with increase in the Amlodipine dose Start Duricef 1 g p.o. twice daily x7 days Start Effexor XR 75 mg p.o. daily Decrease Remeron to 7.5 mg p.o. nightly for a few days and then discontinue Continue to monitor blood pressure. Goal blood pressure is less than 130/80. Will add a second agent if necessary. If insomnia recurs with decrease and discontinuation of Remeron will increase the trazodone to 100 mg p.o. daily. STROKE Vital Signs/Narrative: Vital Signs Temp Pulse Resp BP Pulse Ox 10/10/19 08:05 98.4 F 85 18 142/81 H 96 Inpatient E&M: 73185 Subs Hosp L2
[2019-10-10] MEDS: Cefadroxil 500 MG CAPSULE 1000 MG PO ×2 (11:30→20:57)
--- NOTE | 2019-10-10 11:44 | CASEMGMT ---
Social Work Patient was approved more time through insurance. NRD 10/15. Will Reteam next week. Notified pt and . is scheduled to complete Shared Care with pt. Will continue to follow. DARBY GibbonsW
[2019-10-10] MEDS: Venlafaxine XR 75 MG Capsule PO (12:02)
--- NOTE | 2019-10-10 17:57 | NURSING ---
Tolerating aTb therapy ok for left great toe infection, redness, slight edema, painful to touch.
[2019-10-10 19:07] VITALS: BP 142/81; PULSE 89; RESP 16; TEMP 36.8; O2SAT 94
[2019-10-10] MEDS: Ipratropium Bromide 0.06% NASAL SPRAY 2 SPRAY NASAL (19:25)
[2019-10-10] MEDS: Mirtazapine 15 MG Tablet PO (20:57)
[2019-10-10] MEDS: traZODone 50 MG Tablet PO (20:57)
[2019-10-10] MEDS: Atorvastatin Calcium 40 MG Tablet PO (20:57)
[2019-10-10] MEDS: Oxymetazoline 0.05% 1 SPRAY SPRAY.BTL 2 SPRAY NASAL (20:57)
[2019-10-11 05:00] VITALS: BMI 31.1
[2019-10-11] MEDS: Enoxaparin 40 MG/0.4 ML Syringe SC (05:45)
[2019-10-11 07:30] VITALS: BP 147/91; PULSE 82; RESP 16; TEMP 36.6; O2SAT 92
[2019-10-11] MEDS: Cefadroxil 500 MG CAPSULE 1000 MG PO ×2 (07:30→20:43)
[2019-10-11] MEDS: Clopidogrel Bisulfate 75 MG Tablet PO (07:30)
[2019-10-11] MEDS: Venlafaxine XR 75 MG Capsule PO (07:30)
[2019-10-11] MEDS: amLODIPine 10 MG Tablet PO (07:30)
[2019-10-11] MEDS: Aspirin 81 MG TAB.CHEW PO (07:30)
[2019-10-11 08:07] VITALS: BMI 31.1
--- NOTE | 2019-10-11 10:30 | PN_ITS ---
Progress Note Afebrile Systolic blood pressures are still not adequately controlled and on her the majority of the time greater than 130. Diastolic blood pressures over the past 6 days have ranged from 70-91. Blood pressure this morning was 147/91. He is currently on amlodipine 10 mg daily for blood pressure control. Prior to the stroke he was seen in Dr. Elliott's office on his blood pressure on that date was 124/88 on olmesartan 40 mg/hydrochlorothiazide 12.5 mg. When he came to the rehab unit he was on Amlodipine 5 mg. He was started on Effexor XR yesterday and the Remeron was weaned due to a big increase in appetite and a 6 lb weight increase in 1 week. No edema of the ankles and lungs are CTA. Still impulsive, still with memory issues. No CP, no SOB, no palpitations. Denies pain in the R great toe today. Alert, impulsive. Can not remember if the cane he is using is his. Lungs - CTA H - RRR no peripheral edema no calf tenderness The erythema of the dorsal surface of the right great toe is fading....there is still a mild increase in the warmth to touch. No openings in the skin Impressions 1. cellulitis - improving. Continue Duricef 1 g p.o. twice daily for a total of 7 days. 2. post stroke debility - he is going to need 24 H supervision at home. is here today for family training. I ? her ability to adequately supervise at home. She asks many of the same questions daily and seems to rely on the nurses when the alarm goes off rather than redirecting him. 3. suspected AF - possibly due to untreated sleep study. Sleep study was at least 15 years ago. Will have him follow up with pulmonary to do a new test and investigate different kinds of masks he could try 4. HTN - not at goal yet....goal is less siti920/80. 5. weight gain and voracious appetite 6. Depression and insomnia start Losartan 50 mg daily DC Remeron on Tuesday and increase the Effexor to 150 mg daily New sleep study at [place] and have him follow with pulmonary 30 day event monitor at [place].......with untreated sleep apnea due to non- compliance (it makes his nose stuffy) and multiple strokes in the posterior circulation.....I suspect he has AF. Will see how his does with family training today.......I have reservations about her ability to provide 24/7 supervision and assist him appropriately. She does not retain information given to her well. Will have to write everything out at DC. STROKE Vital Signs/Narrative: Vital Signs Temp Pulse Resp BP Pulse Ox 10/11/19 07:30 97.9 F 82 16 147/91 H 92 Inpatient E&M: 44229 Subs Hosp L2
[2019-10-11] MEDS: Losartan Potassium 50 MG Tablet PO (13:50)
[2019-10-11 18:57] VITALS: BP 140/79; PULSE 87; RESP 18; TEMP 36.6; O2SAT 94
[2019-10-11] MEDS: Ipratropium Bromide 0.06% NASAL SPRAY 2 SPRAY NASAL (20:33)
[2019-10-11 20:40] VITALS: BMI 31.1
[2019-10-11] MEDS: Mirtazapine 15 MG Tablet PO (20:40)
[2019-10-11] MEDS: Atorvastatin Calcium 40 MG Tablet PO (20:41)
[2019-10-11] MEDS: Oxymetazoline 0.05% 1 SPRAY SPRAY.BTL 2 SPRAY NASAL (20:42)
[2019-10-11] MEDS: traZODone 50 MG Tablet PO (20:42)
[2019-10-12] MEDS: Enoxaparin 40 MG/0.4 ML Syringe SC (06:15)
[2019-10-12] MEDS: Aspirin 81 MG TAB.CHEW PO (07:37)
[2019-10-12 08:18] VITALS: BP 133/64; PULSE 62; RESP 18; TEMP 36.6; O2SAT 95
[2019-10-12] MEDS: Cefadroxil 500 MG CAPSULE 1000 MG PO ×2 (09:04→21:34)
[2019-10-12] MEDS: Losartan Potassium 50 MG Tablet PO (09:04)
[2019-10-12] MEDS: Venlafaxine XR 75 MG Capsule PO (09:05)
[2019-10-12] MEDS: Clopidogrel Bisulfate 75 MG Tablet PO (09:05)
[2019-10-12] MEDS: amLODIPine 10 MG Tablet PO (09:05)
[2019-10-12 15:15] VITALS: BMI 31.1
[2019-10-12 19:39] VITALS: BP 126/80; PULSE 92; RESP 16; TEMP 36.8; O2SAT 94
[2019-10-12 19:54] VITALS: BMI 31.1
[2019-10-12] MEDS: Ipratropium Bromide 0.06% NASAL SPRAY 2 SPRAY NASAL (19:55)
[2019-10-12 19:56] VITALS: RESP 17
[2019-10-12] MEDS: Oxymetazoline 0.05% 1 SPRAY SPRAY.BTL 2 SPRAY NASAL (21:33)
[2019-10-12] MEDS: traZODone 50 MG Tablet PO (21:33)
[2019-10-12] MEDS: Atorvastatin Calcium 40 MG Tablet PO (21:34)
[2019-10-12] MEDS: Mirtazapine 15 MG Tablet PO (21:34)
[2019-10-13] MEDS: Enoxaparin 40 MG/0.4 ML Syringe SC (06:07)
[2019-10-13] MEDS: amLODIPine 10 MG Tablet PO (08:06)
[2019-10-13] MEDS: Venlafaxine XR 75 MG Capsule PO (08:06)
[2019-10-13] MEDS: Clopidogrel Bisulfate 75 MG Tablet PO (08:06)
[2019-10-13] MEDS: Aspirin 81 MG TAB.CHEW PO (08:06)
[2019-10-13] MEDS: Losartan Potassium 50 MG Tablet PO (08:06)
[2019-10-13] MEDS: Cefadroxil 500 MG CAPSULE 1000 MG PO ×2 (08:07→20:21)
[2019-10-13 09:31] VITALS: BP 126/91; PULSE 71; RESP 18; TEMP 36.6; O2SAT 93
[2019-10-13 11:04] VITALS: BMI 31.1
--- NOTE | 2019-10-13 15:19 | NURSING ---
Pt ambulated hallways x1 assist with cane x1 laps, tolerated well.
[2019-10-13] MEDS: Ipratropium Bromide 0.06% NASAL SPRAY 2 SPRAY NASAL (20:20)
[2019-10-13] MEDS: Mirtazapine 15 MG Tablet PO (20:21)
[2019-10-13] MEDS: Oxymetazoline 0.05% 1 SPRAY SPRAY.BTL 2 SPRAY NASAL (20:21)
[2019-10-13] MEDS: Atorvastatin Calcium 40 MG Tablet PO (20:21)
[2019-10-13] MEDS: traZODone 50 MG Tablet PO (20:21)
[2019-10-13 20:25] VITALS: BP 130/73; PULSE 81; RESP 18; TEMP 37; O2SAT 93
[2019-10-13 20:30] VITALS: BMI 31.1
[2019-10-14] MEDS: Enoxaparin 40 MG/0.4 ML Syringe SC (05:39)
[2019-10-14] MEDS: Clopidogrel Bisulfate 75 MG Tablet PO (07:54)
[2019-10-14] MEDS: amLODIPine 10 MG Tablet PO (07:54)
[2019-10-14] MEDS: Cefadroxil 500 MG CAPSULE 1000 MG PO ×2 (07:54→21:40)
[2019-10-14] MEDS: Losartan Potassium 50 MG Tablet PO (07:54)
[2019-10-14] MEDS: Aspirin 81 MG TAB.CHEW PO (07:54)
[2019-10-14] MEDS: Venlafaxine XR 75 MG Capsule PO (07:54)
[2019-10-14 10:00] VITALS: BP 136/74; PULSE 69; RESP 18; TEMP 36.7; O2SAT 93
--- NOTE | 2019-10-14 10:25 | PN_ITS ---
Patient Problems: Active and Suspected Problems (Last Reviewed 09/28/19 @ 12:[address] Chen Tamez, DO) Intracranial embolism and thrombosis (Acute) MRA on 09/19/2019 at [facility] showed no appreciable flow in the bilateral V4 segments or proximal basilar artery and he underwent emergent thrombectomy and thrombolysis. Both distal vertebral arteries were occluded and had transient stents placed History of multiple cerebrovascular accidents (CVAs) (Acute) Occipital lobes, right cerebellar lobe, hippocampal formations and left cerebellar lobe on MRI done 09/19/19.... Reason for Visit: CVA Subjective: Left great toe erythema improving. Vitals/I&O's: Vital Signs Temp Pulse Resp BP Pulse Ox 37.0 C 81 18 130/73 H 93 10/13/19 20:25 10/13/19 20:25 10/13/19 20:25 10/13/19 20:25 10/13/19 20:25 Oxygen Delivery Method Room Air Weight: 110.2 kg Body Mass Index (BMI) 31.1 Orthostatic Vital Signs Start: 09/29/19 13:15 Freq: Status: Active Protocol: Activity Type Activity Date Activity User E-Sign Co-Sign Detail Recorded Client Recorded Date Recorded By Document 09/29/19 08:00 CMK [id number] 09/29/19 13:16 CMK 09/29/19 08:00 Orthostatic Vitals Standing -Blood Pressure (90/60-120/80) 143/86 H -Extremity Use Right Arm -Pulse Rate (60-100) 86 Sitting -Blood Pressure (90/60-120/80) 137/71 H -Extremity Use Right Arm -Pulse Rate (60-100) 70 Lying -Blood Pressure (90/60-120/80) 135/72 H -Extremity Use Right Arm -Pulse Rate (60-100) 69 Intake and Output for Last 24 Hours 10/12/19 10/13/19 10/14/19 23:59 23:59 23:59 Intake Total 400 / 400 2180 / 2180 Balance 400 / 400 2180 / 2180 General: Alert, No apparent distress, - - up in chair HEENT: Atraumatic, Normocephalic Extremities: No edema, No Calf Tenderness Skin: - - minimal erythema of left great toe. no left MTP tenderness. Current Medications Amlodipine Besylate (Norvasc) 10 mg PO DAILY ANGELICA Last Admin: 10/14/19 07:54 Dose: 10 mg Documented by: Aspirin (Aspirin, Baby) 81 mg PO DAILY@0800 [facility] Last Admin: 10/14/19 07:54 Dose: 81 mg Documented by: Atorvastatin Calcium (Lipitor) 40 mg PO QHS [facility] Last Admin: 10/13/19 20:21 Dose: 40 mg Documented by: Bisacodyl (Dulcolax) 10 mg RECTAL .PRN X 1 PRN PRN Reason: Constipation Cefadroxil (Duricef) 1,000 mg PO BID [facility] Stop: 10/17/19 10:01 Last Admin: 10/14/19 07:54 Dose: 1,000 mg Documented by: Clopidogrel Bisulfate (Plavix) 75 mg PO DAILY [facility] Last Admin: 10/14/19 07:54 Dose: 75 mg Documented by: Enoxaparin Sodium (Lovenox) 40 mg SC DAILY@0600 [facility] Last Admin: 10/14/19 05:39 Dose: 40 mg Documented by: Ipratropium Java (Atrovent Nasal [place] (G)) 2 spray NASAL DAILY@1999 [facility] Last Admin: 10/13/19 20:20 Dose: 2 sprays Documented by: Ipratropium Java (Atrovent Nasal [place] (G)) 2 spray NASAL BID PRN PRN PRN Reason: nasal congestion Last Admin: 10/07/19 16:32 Dose: 2 spray Documented by: Losartan Potassium (Cozaar) 50 mg PO DAILY [facility] Last Admin: 10/14/19 07:54 Dose: 50 mg Documented by: Magnesium Hydroxide (Milk Of Magnesia) 30 ml PO .PRN X 1 PRN PRN Reason: Constipation Mirtazapine (Remeron) 15 mg PO QHS [facility] Last Admin: 10/13/19 20:21 Dose: 15 mg Documented by: Oxymetazoline HCl (Afrin (Bkc)) [facility] Last Admin: 10/13/19 20:21 Dose: 2 spray Documented by: Senna/Docusate Sodium (Senokot-S, Jessica-Colace) 2 tablet PO BID PRN PRN Reason: Constipation Sodium Chloride () 10 - 40 ml IV UD PRN PRN Reason: SALINE FLUSH Trazodone [facility] ([facility]rel) [facility] Last Admin: 10/13/19 20:21 Dose: 50 mg Documented by: Venlafaxine HCl (Effexor Xr) 75 mg PO DAILY [facility] Last Admin: 10/14/19 07:54 Dose: 75 mg Documented by: Medical Necessity - Tobacco Use Smoking Status: Light Smoker (<10/day) Tobacco Use: Cigarettes Assessment/Plan All Active Problems (Last Reviewed 09/28/19 @ 12:[address] Chen Tamez, DO) Intracranial embolism and thrombosis (Acute) History of multiple cerebrovascular accidents (CVAs) (Acute) Discoid eczema (Acute) 1. Left great toe cellulitis: improving. Duricef through the 2. CVA: on ASA, clopidogrel and atorvastatin 3. Debility: continue PT OT. DC planning. 4. VTE prophylaxis: LMWH Inpatient E&M: 93307 Subs Hosp L1
[2019-10-14 10:54] VITALS: BMI 31.1
--- NOTE | 2019-10-14 14:15 | NURSING ---
Pt ambulated hallways x1 standby assist with cane x3 laps, tolerated well.
--- NOTE | 2019-10-14 18:42 | NURSING ---
Ambulated in hallway with nursing staff. SBA. Gait steady.
[2019-10-14 19:30] VITALS: BP 132/76; PULSE 81; RESP 16; TEMP 36.5; O2SAT 92; BMI 31.1
[2019-10-14] MEDS: Ipratropium Bromide 0.06% NASAL SPRAY 2 SPRAY NASAL (19:54)
[2019-10-14] MEDS: Mirtazapine 15 MG Tablet PO (21:40)
[2019-10-14] MEDS: Oxymetazoline 0.05% 1 SPRAY SPRAY.BTL 2 SPRAY NASAL (21:40)
[2019-10-14] MEDS: Atorvastatin Calcium 40 MG Tablet PO (21:40)
[2019-10-14] MEDS: traZODone 50 MG Tablet PO (21:40)
[2019-10-15] MEDS: Enoxaparin 40 MG/0.4 ML Syringe SC (06:23)
[2019-10-15 07:32] VITALS: BP 146/88; PULSE 75; RESP 18; TEMP 36.6; O2SAT 94
[2019-10-15] MEDS: Venlafaxine XR 75 MG Capsule PO (09:04)
[2019-10-15] MEDS: amLODIPine 10 MG Tablet PO (09:04)
[2019-10-15] MEDS: Clopidogrel Bisulfate 75 MG Tablet PO (09:04)
[2019-10-15] MEDS: Aspirin 81 MG TAB.CHEW PO (09:05)
[2019-10-15] MEDS: Losartan Potassium 50 MG Tablet PO (09:05)
[2019-10-15] MEDS: Cefadroxil 500 MG CAPSULE 1000 MG PO ×2 (09:05→21:28)
--- NOTE | 2019-10-15 09:06 | CASEMGMT ---
Addendum entered by Daniella Thomas 10/15/19 09:26: Patient sleep study scheduled for 10/31. DC set 10/16. Original Note: Social Work IDT met with patient and for Team meeting. Discussed patient's progress in therapy. Pt is CGA to SBA for transfers, using SPC SBA, outside CGA, walking 300-500 ft, cautious outside with walking and problem solving. Pt can get dizzy and have fall risk. Pt is completing steps at CGA. Pt is supervised/SBA for all ADLs, working on standing tolerance - 20 mins at this time and balance improving. ST working on attention, memory. Pt is sleeping well. Shared care with went well and she feels comfortable with DCing home. Explained insurance update 10/15 and continued stay is not guaranteed. Pt does need a sleep study at [place]. Will schedule sleep study this week and pt will DC that day - requesting 10/16. Therapy recommending outpatient PT/OT/ST - family would like [place] location. No DME needs. purchased all DME. Will continue to follow. Daniella Thomas, DARBY CAMPW
[2019-10-15 09:45] VITALS: BMI 31.1
[2019-10-15 19:33] VITALS: BP 137/75; PULSE 81; RESP 16; TEMP 36.7; O2SAT 96
--- NOTE | 2019-10-15 19:52 | NURSING ---
Staff assist pt with ambulating around unit x1. Pt tolerated well.
[2019-10-15 20:00] VITALS: PULSE 81; RESP 16; O2SAT 96; BMI 31.1
[2019-10-15] MEDS: Ipratropium Bromide 0.06% NASAL SPRAY 2 SPRAY NASAL (20:01)
[2019-10-15] MEDS: Atorvastatin Calcium 40 MG Tablet PO (21:28)
[2019-10-15] MEDS: Mirtazapine 15 MG Tablet PO (21:28)
[2019-10-15] MEDS: traZODone 50 MG Tablet PO (21:28)
[2019-10-15] MEDS: Oxymetazoline 0.05% 1 SPRAY SPRAY.BTL 2 SPRAY NASAL (21:28)
--- NOTE | 2019-10-15 21:49 | PN_ITS ---
Subjective: Resident seen on team rounds today. He is progressing with therapy, present, she is feeling more comfortable with Joaquin going home. He has no new complaints, he had cellulitis left great toe, improving with antibiotic treatment. Vitals/I&O's: Vital Signs Temp Pulse Resp BP Pulse Ox 98.1 F 81 16 137/75 H 96 10/15/19 19:33 10/15/19 19:33 10/15/19 19:33 10/15/19 19:33 10/15/19 19:33 Oxygen Delivery Method Room Air Weight: 110.2 kg Body Mass Index (BMI) 31.1 Orthostatic Vital Signs Start: 09/29/19 13:15 Freq: Status: Active Protocol: Activity Type Activity Date Activity User E-Sign Co-Sign Detail Recorded Client Recorded Date Recorded By Document 09/29/19 08:00 CMK [id number] 09/29/19 13:16 CMK 09/29/19 08:00 Orthostatic Vitals Standing -Blood Pressure (90/60-120/80) 143/86 H -Extremity Use Right Arm -Pulse Rate (60-100) 86 Sitting -Blood Pressure (90/60-120/80) 137/71 H -Extremity Use Right Arm -Pulse Rate (60-100) 70 Lying -Blood Pressure (90/60-120/80) 135/72 H -Extremity Use Right Arm -Pulse Rate (60-100) 69 Intake and Output for Last 24 Hours 10/13/19 10/14/19 10/15/19 23:59 23:59 23:59 Intake Total 2180 / 2180 1560 / 1560 1860 / 1860 Balance 2180 / 2180 1560 / 1560 186 / 1860 Past Medical History Past Medical History (Chronic Problems): Chronic Problems (Last Reviewed 09/28/19 @ 12:[address] Chen Tamez, DO) Osteoarthritis (Chronic) Obstructive sleep apnea (Chronic) has a CPAP unit but, unable to tolerate due to sinus pain and nasal congestion Restless leg syndrome (Chronic) likely due to untreated MAGALIS Diverticulosis (Chronic) has also had diverticulitis 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 (Chronic) History of rheumatic fever as a child (Chronic) Grade I diastolic dysfunction (Chronic) Asymmetric septal hypertrophy (Chronic) Aortic stenosis, mild (Chronic) with mild MR Eczema (Chronic) History of ankle fusion (Chronic) History of cardiac radiofrequency ablation (Chronic) Rheumatoid arthritis (Chronic) seronegative Hypertension (Chronic) Medical History: Medical History (Last Reviewed 09/28/19 @ 12:[address] Chen Tamez DO) Rheumatoid arthritis (Chronic) M06.9 seronegative Hypertension (Chronic) I10 Allergies No Known Allergies Allergy (Verified 09/13/19 13:33) Home Medications: Ambulatory Orders Medication Instructions Recorded Amlodipine [Norvasc] 5 mg PO DAILY 09/28/19 Aspirin [Aspirin, Baby] 81 mg PO DAILY@0800 09/28/19 Atorvastatin Calcium [Lipitor] 40 mg PO QHS 09/28/19 Clopidogrel Bisulfate [Plavix] 75 mg PO DAILY 09/28/19 Surgical History: Surgical History (Last Reviewed 09/28/19 @ 12:[address] 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 Chen Tamez DO) Father Sudden cardiac Paternal Family History: Family History (Last Reviewed 09/28/19 @ 13:[address] Chen Tamez DO) Father Sudden cardiac History Items: Heart Disease - His father at the age of 50 due to myocardial infarction. Sibling Family History: Family History (Last Reviewed 09/28/19 @ 13:[address] Chen Tamez DO) Father Sudden cardiac History Items: Hypertension, - - Obstructive sleep apnea in his brother Capacity - Capacity Assessment Tool Can the patient make a choice & communicate that choice?: Yes Can the patient understand benefits, risks and alternatives?: Yes Can the patient make a logical, rational choice?: Yes Is the choice the patient makes consistent w/ their values?: Yes Is there an impending, emergent risk to the patient?: No Does the patient have an Advance Directive?: No Is there a Surrogate Available?: Yes i.e. HCPOA: Yes i.e. close relative (spouse, child, parent, sibling)?: Yes Review of Systems Constitutional: Denies: Chills, Fever, Weight Change HEENT: Denies: Head Aches, Sinus Congestion, Sinus Drainage Cardiovascular: Denies: Chest Pain, Palpitations Respiratory: Denies: Cough, Shortness of breath at rest, Sputum production Gastrointestinal: Denies: Abdominal Pain, Nausea, Vomiting Genitourinary: Denies: Dysuria Musculoskeletal: Denies: Joint Pain, Joint Tenderness Skin: Denies: Rash, Wounds Neurological: Denies: Numbness, Tingling, Focal weakness Psychiatric: Denies: Anxiety, Depression, Homicidal Ideations, Suicidal Ideations Hematologic/ Lymphatic: Denies: Easy Bruising, Easy Bleeding Patient Problems: Active and Suspected Problems (Last Reviewed 09/28/19 @ 12:[address] Chen Tamez, DO) Intracranial embolism and thrombosis (Acute) MRA on 09/19/2019 at [facility] showed no appreciable flow in the bilateral V4 segments or proximal basilar artery and he underwent emergent thrombectomy and thrombolysis. Both distal vertebral arteries were occluded and had transient stents placed History of multiple cerebrovascular accidents (CVAs) (Acute) Occipital lobes, right cerebellar lobe, hippocampal formations and left cerebellar lobe on MRI done 09/19/19.... - Physical Exam Vitals/I&O's: Vital Signs Temp Pulse Resp BP Pulse Ox 98.1 F 81 16 137/75 H 96 10/15/19 19:33 10/15/19 19:33 10/15/19 19:33 10/15/19 19:33 10/15/19 19:33 Oxygen Delivery Method Room Air Weight: 110.2 kg Body Mass Index (BMI) 31.1 Orthostatic Vital Signs Start: 09/29/19 13:15 Freq: Status: Active Protocol: Activity Type Activity Date Activity User E-Sign Co-Sign Detail Recorded Client Recorded Date Recorded By Document 09/29/19 08:00 CMK [id number] 09/29/19 13:16 CMK 09/29/19 08:00 Orthostatic Vitals Standing -Blood Pressure (90/60-120/80) 143/86 H -Extremity Use Right Arm -Pulse Rate (60-100) 86 Sitting -Blood Pressure (90/60-120/80) 137/71 H -Extremity Use Right Arm -Pulse Rate (60-100) 70 Lying -Blood Pressure (90/60-120/80) 135/72 H -Extremity Use Right Arm -Pulse Rate (60-100) 69 Intake and Output for Last 24 Hours 10/13/19 10/14/19 10/15/19 23:59 23:59 23:59 Intake Total 2180 / 2180 1560 / 1560 1860 / 1860 Balance 2180 / 2180 1560 / 1560 1860 / 1860 General: Alert, Oriented x3, Cooperative HEENT: Atraumatic, PERRLA, EOMI, Normocephalic Neck: Supple, No JVD, Negative Carotid Bruits Lungs: Clear to auscultation, Normal air movement Cardiovascular: Regular rate, No murmurs Abdomen: Bowel Sounds Present, Soft, Non Tender Extremities: No edema, Capillary Refill Less than 3 Seconds Skin: No rashes, No breakdown Musculoskeletal: No Tenderness to Palpation of Joints or Extremities Neurological: Cranial nerves II-XII grossly intact Psych/Mental Status: Normal Affect, Appropriate Current Medications Amlodipine Besylate (Norvasc) 10 mg PO DAILY [facility] Last Admin: 10/15/19 09:04 Dose: 10 mg Documented by: Aspirin (Aspirin, Baby) 81 mg PO DAILY@0800 [facility] Last Admin: 10/15/19 09:05 Dose: 81 mg Documented by: Atorvastatin Calcium (Lipitor) 40 mg PO QHS [facility] Last Admin: 10/15/19 21:28 Dose: 40 mg Documented by: Bisacodyl (Dulcolax) 10 mg RECTAL .PRN X 1 PRN PRN Reason: Constipation Cefadroxil (Duricef) 1,000 mg PO BID [facility] Stop: 10/17/19 10:01 Last Admin: 10/15/19 21:28 Dose: 1,000 mg Documented by: Clopidogrel Bisulfate (Plavix) 75 mg PO DAILY [facility] Last Admin: 10/15/19 09:04 Dose: 75 mg Documented by: Enoxaparin Sodium (Lovenox) 40 mg SC DAILY@0600 [facility] Last Admin: 10/15/19 06:23 Dose: 40 mg Documented by: Ipratropium Sterrett (Atrovent Nasal [place] (G)) 2 spray NASAL DAILY@2000 [facility] Last Admin: 10/15/19 20:01 Dose: 2 sprays Documented by: Ipratropium Sterrett (Atrovent Nasal [place] (G)) 2 spray NASAL BID PRN PRN PRN Reason: nasal congestion Last Admin: 10/07/19 16:32 Dose: 2 spray Documented by: Losartan Potassium (Cozaar) 50 mg PO DAILY [facility] Last Admin: 10/15/19 09:05 Dose: 50 mg Documented by: Magnesium Hydroxide (Milk Of Magnesia) 30 ml PO .PRN X 1 PRN PRN Reason: Constipation Mirtazapine (Remeron) 15 mg PO QHS [facility] Last Admin: 10/15/19 21:28 Dose: 15 mg Documented by: Oxymetazoline HCl (Afrin (Bkc)) 2 spray NASAL QHS [facility] Last Admin: 10/15/19 21:28 Dose: 2 spray Documented by: Senna/Docusate Sodium (Senokot-S, Jessica-Colace) 2 tablet PO BID PRN PRN Reason: Constipation Sodium Chloride () 10 - 40 ml IV UD PRN PRN Reason: SALINE FLUSH Trazodone HCl (Desyrel) 50 mg PO QHS [facility] Last Admin: 10/15/19 21:28 Dose: 50 mg Documented by: Venlafaxine HCl (Effexor Xr) 75 mg PO DAILY [facility] Last Admin: 10/15/19 09:04 Dose: 75 mg Documented by: Assessment/Plan All Active Problems (Last Reviewed 09/28/19 @ 12:[address] Chen Tamez, ) Intracranial embolism and thrombosis (Acute) History of multiple cerebrovascular accidents (CVAs) (Acute) Discoid eczema (Acute) 64 year old male with below past medical history hospitalized for stroke, admitted to for > 3 hours therapy, prior to discharge home with . * Debility - PT/OT. * Cognition - ST. * Bowel - Senna/colace 2 tablets BID PRN, Dulcolax 10MG MA daily PRN. * DVT prophylaxis - Lovenox 40MG SC daily. * Hypertension - Losartan 50MG daily, Amlodipine 10MG daily. * Stroke - Aspirin 81MG daily, Plavix 75MG daily. * Hyperlipidemia - Atorvastatin 40MG QHS. * Left great toe cellulitis - Cefadroxil 1000MG BID thru 10/17/2019. * Rhinitis - Atrovent nasal spray, Oxymetazoline nasal spray. * GERD - MOM 30ML PRN. * Appetite loss - Mirtazapine 15MG QHS. * Insomnia - Trazodone 50MG QHS. * Depression - Venlafaxine XR 75MG daily.
--- NOTE | 2019-10-16 04:10 | NURSING ---
Reviewed and agree with [employer] documentation and charting.
[2019-10-16] MEDS: Enoxaparin 40 MG/0.4 ML Syringe SC (05:53)
[2019-10-16 07:22] VITALS: BP 123/60; PULSE 64; RESP 17; TEMP 36.8; O2SAT 97
--- NOTE | 2019-10-16 08:20 | DCINST_ITS ---
- Discharge Diagnoses Current Active Problems: Current Active and Chronic Problems (Last Reviewed 09/28/19 @ 12:[address] Chen Tamez, ) Osteoarthritis (Chronic) Obstructive sleep apnea (Chronic) has a CPAP unit but, unable to tolerate due to sinus pain and nasal congestion Intracranial embolism and thrombosis (Acute) MRA on 09/19/2019 at [facility] showed no appreciable flow in the bilateral V4 segments or proximal basilar artery and he underwent emergent thrombectomy and thrombolysis. Both distal vertebral arteries were occluded and had transient stents placed History of multiple cerebrovascular accidents (CVAs) (Acute) Occipital lobes, right cerebellar lobe, hippocampal formations and left cerebellar lobe on MRI done 09/19/19.... Restless leg syndrome (Chronic) likely due to untreated MAGALIS Diverticulosis (Chronic) has also had diverticulitis 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 (Chronic) History of rheumatic fever as a child (Chronic) Grade I diastolic dysfunction (Chronic) Asymmetric septal hypertrophy (Chronic) Aortic stenosis, mild (Chronic) with mild MR You will use the following diet at home:: No restrictions, Regular Your food should be the consistency of: Regular Your liquids should be the consistency of: Regular/Thin Discharge Activity: Return to Normal Activity, May Shower, Use Walker Weight Bearing Status: Weight bearing as tolerated Call your doctor if you observe: Fever of 101 or Higher, Inability to urinate, Inability to have a bowel movement, Shortness of breath, Chest pain, Uncontrolled pain Allergies/Adverse Reactions: Allergies No Known Allergies Allergy (Verified 09/13/19 13:33) Medications to take at Discharge Aspirin [Aspirin, Baby] 81 mg PO DAILY@0800 09/28/19 Amlodipine [Norvasc] 5 mg PO DAILY #30 tab 10/16/19 Atorvastatin Calcium [Lipitor] 40 mg PO QHS #30 tab 10/16/19 Clopidogrel Bisulfate [Plavix] 75 mg PO DAILY #30 tab 10/16/19 Losartan Potassium [Cozaar] 50 mg PO DAILY #30 tab 10/16/19 Mirtazapine [Remeron] 15 mg PO QHS #30 tab 10/16/19 Venlafaxine XR [Effexor Xr] 75 mg PO DAILY #30 cap 10/16/19 traZODone [Desyrel] 50 mg PO QHS #30 tab 10/16/19 The following prescriptions were given: Losartan Potassium [Cozaar] 50 mg PO DAILY #30 tab Transmission Status: Pending to [facility] traZODone [Desyrel] 50 mg PO QHS #30 tab Transmission Status: Pending to [facility] Venlafaxine XR [Effexor Xr] 75 mg PO DAILY #30 cap Transmission Status: Pending to [facility] Atorvastatin Calcium [Lipitor] 40 mg PO QHS #30 tab Transmission Status: Pending to [facility] Amlodipine [Norvasc] 5 mg PO DAILY #30 tab Transmission Status: Pending to [facility] Clopidogrel Bisulfate [Plavix] 75 mg PO DAILY #30 tab Transmission Status: Pending to [facility] Mirtazapine [Remeron] 15 mg PO QHS #30 tab Transmission Status: Pending to [facility] Primary Care Physician: Joao Elliott, [Primary Care Provider] - Please follow up with your Primary Care Physician in: 1 week. Test Results: Test results from this visit will be discussed in further detail at your follow- up appointment, if applicable. Please Follow Up With: Dr. Joao Elliott, PCP When: Tuesday Please Follow Up With: Tree Colon When: As scheduled. Please Follow Up With: Sleep Study When: Please Follow Up With: Elizabeth Walton CNP (Pulmonary) When: Tuesday Please Follow Up With: Dr. Jason Russo, Neurologist When: Tuesday Proposed Discharge Date: 10/17/19
--- NOTE | 2019-10-16 08:22 | DS.PCM_ITS ---
Discharge Date and Diagnosis - Problem List Patient Problems: Active and Suspected Problems (Last Reviewed 09/28/19 @ 12:[address] Chen Tamez DO) Intracranial embolism and thrombosis (Acute) MRA on 09/19/2019 at [facility] showed no appreciable flow in the bilateral V4 segments or proximal basilar artery and he underwent emergent thrombectomy and thrombolysis. Both distal vertebral arteries were occluded and had transient stents placed History of multiple cerebrovascular accidents (CVAs) (Acute) Occipital lobes, right cerebellar lobe, hippocampal formations and left cerebellar lobe on MRI done 09/19/19.... Date of Admission: 09/28/19 Date of Discharge: 10/17/19 - Primary Discharge Diagnosis Acute Problems: Active Problems (Last Reviewed 09/28/19 @ 12:[address] Chen Tamez DO) Intracranial embolism and thrombosis (Acute) MRA on 09/19/2019 at [facility] showed no appreciable flow in the bilateral V4 segments or proximal basilar artery and he underwent emergent thrombectomy and thrombolysis. Both distal vertebral arteries were occluded and had transient stents placed History of multiple cerebrovascular accidents (CVAs) (Acute) Occipital lobes, right cerebellar lobe, hippocampal formations and left cerebellar lobe on MRI done 09/19/19.... - Secondary Discharge Diagnosis Chronic Problems: Chronic Problems (Last Reviewed 09/28/19 @ 12:[address] Chen Tamez DO) Osteoarthritis (Chronic) Obstructive sleep apnea (Chronic) has a CPAP unit but, unable to tolerate due to sinus pain and nasal congestion Restless leg syndrome (Chronic) likely due to untreated MAGALIS Diverticulosis (Chronic) has also had diverticulitis 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 (Chronic) History of rheumatic fever as a child (Chronic) Grade I diastolic dysfunction (Chronic) Asymmetric septal hypertrophy (Chronic) Aortic stenosis, mild (Chronic) with mild MR Eczema (Chronic) History of ankle fusion (Chronic) History of cardiac radiofrequency ablation (Chronic) Rheumatoid arthritis (Chronic) seronegative Hypertension (Chronic) Hospital Course and Treatment Imaging Results: 09/28/19 11:45 Diet: Cardiac - Heart Healthy Food consistency:: Regular Liquid Consistency:: Regular/Thin Diet Comments: distant supervision due to impulsive Operations: None Procedures: None Summary of Care Provided: The patient is a 64 year old Male with below past medical history hospitalized for stroke, admitted to for > 3 hours therapy, prior to discharge home with . Discharge home with , [facility] outpatient PT/OT/ST, sleep study on discharge if possible. Patient Problems: Active and Suspected Problems (Last Reviewed 09/28/19 @ 12:[address] Chen Tamez, DO) Intracranial embolism and thrombosis (Acute) MRA on 09/19/2019 at [facility] showed no appreciable flow in the bilateral V4 segments or proximal basilar artery and he underwent emergent thrombectomy and thrombolysis. Both distal vertebral arteries were occluded and had transient stents placed History of multiple cerebrovascular accidents (CVAs) (Acute) Occipital lobes, right cerebellar lobe, hippocampal formations and left cerebellar lobe on MRI done 09/19/19.... - Physical Exam Vitals/I&O's: Vital Signs Temp Pulse Resp BP Pulse Ox 98.3 F 64 17 123/60 H 97 10/16/19 07:22 10/16/19 07:22 10/16/19 07:22 10/16/19 07:22 10/16/19 07:22 Oxygen Delivery Method Room Air Weight: 112.2 kg Body Mass Index (BMI) 31.1 Orthostatic Vital Signs Start: 09/29/19 13:15 Freq: Status: Active Protocol: Activity Type Activity Date Activity User E-Sign Co-Sign Detail Recorded Client Recorded Date Recorded By Document 09/29/19 08:00 CMK [id number] 09/29/19 13:16 CMK 09/29/19 08:00 Orthostatic Vitals Standing -Blood Pressure (90/60-120/80) 143/86 H -Extremity Use Right Arm -Pulse Rate (60-100) 86 Sitting -Blood Pressure (90/60-120/80) 137/71 H -Extremity Use Right Arm -Pulse Rate (60-100) 70 Lying -Blood Pressure (90/60-120/80) 135/72 H -Extremity Use Right Arm -Pulse Rate (60-100) 69 Intake and Output for Last 24 Hours 10/14/19 10/15/19 10/16/19 23:59 23:59 23:59 Intake Total 1560 / 1560 1860 / 1860 480 / 480 Balance 1560 / 1560 1860 / 1860 480 / 480 Current Medications Amlodipine Besylate (Norvasc) 10 mg PO DAILY [facility] Last Admin: 10/15/19 09:04 Dose: 10 mg Documented by: Aspirin (Aspirin, Baby) 81 mg PO DAILY@0800 [facility] Last Admin: 10/15/19 09:05 Dose: 81 mg Documented by: Atorvastatin Calcium (Lipitor) 40 mg PO QHS [facility] Last Admin: 10/15/19 21:28 Dose: 40 mg Documented by: Bisacodyl (Dulcolax) 10 mg RECTAL .PRN X 1 PRN PRN Reason: Constipation Cefadroxil (Duricef) 1,000 mg PO BID [facility] Stop: 10/17/19 10:01 Last Admin: 10/15/19 21:28 Dose: 1,000 mg Documented by: Clopidogrel Bisulfate (Plavix) 75 mg PO DAILY [facility] Last Admin: 10/15/19 09:04 Dose: 75 mg Documented by: Enoxaparin Sodium (Lovenox) 40 mg SC DAILY@06 [facility] Last Admin: 10/16/19 05:53 Dose: 40 mg Documented by: Ipratropium [place]a (Atrovent Nasal [place] (G)) 2 spray NASAL DAILY@1999 [facility] Last Admin: 10/15/19 20:01 Dose: 2 sprays Documented by: Ipratropium [place] (Atrovent Nasal [place] (G)) 2 spray NASAL BID PRN PRN PRN Reason: nasal congestion Last Admin: 10/07/19 16:32 Dose: 2 spray Documented by: Losartan Potassium (Cozaar) 50 mg PO DAILY [facility] Last Admin: 10/15/19 09:05 Dose: 50 mg Documented by: Magnesium Hydroxide (Milk Of Magnesia) 30 ml PO .PRN X 1 PRN PRN Reason: Constipation Mirtazapine (Remeron) 15 mg PO QHS [facility] Last Admin: 10/15/19 21:28 Dose: 15 mg Documented by: Oxymetazoline HCl (Afrin (Bkc)) 2 [facility] Last Admin: 10/15/19 21:28 Dose: 2 spray Documented by: Senna/Docusate Sodium (Senokot-S, Jessica-Colace) 2 tablet PO BID PRN PRN Reason: Constipation Sodium Chloride () 10 - 40 ml IV UD PRN PRN Reason: SALINE FLUSH Trazodone HCl (Desyrel) 50 mg PO QHS [facility] Last Admin: 10/15/19 21:28 Dose: 50 mg Documented by: Venlafaxine HCl (Effexor Xr) 75 mg PO DAILY [facility] Last Admin: 10/15/19 09:04 Dose: 75 mg Documented by: Discharge Diet: No Restrictions Discharge Activity: Return to Normal Activity, May Shower, Use Walker Weight Bearing Status: Weight bearing as tolerated Call your doctor if you observe: Fever of 101 or Higher, Inability to urinate, Inability to have a bowel movement, Shortness of breath, Chest pain, Uncontrolled pain Home Medications: Medications to take at Discharge Aspirin [Aspirin, Baby] 81 mg PO DAILY@0800 09/28/19 Amlodipine [Norvasc] 5 mg PO DAILY #30 tab 10/16/19 Atorvastatin Calcium [Lipitor] 40 mg PO QHS #30 tab 10/16/19 Clopidogrel Bisulfate [Plavix] 75 mg PO DAILY #30 tab 10/16/19 Losartan Potassium [Cozaar] 50 mg PO DAILY #30 tab 10/16/19 Mirtazapine [Remeron] 15 mg PO QHS #30 tab 10/16/19 Venlafaxine XR [Effexor Xr] 75 mg PO DAILY #30 cap 10/16/19 traZODone [Desyrel] 50 mg PO QHS #30 tab 10/16/19 Following Prescriptions Were Given to Patient: Losartan Potassium [Cozaar] 50 mg PO DAILY #30 tab Transmission Status: Pending to [facility] traZODone [Desyrel] 50 mg PO QHS #30 tab Transmission Status: Pending to [facility] Venlafaxine XR [Effexor Xr] 75 mg PO DAILY #30 cap Transmission Status: Pending to [facility] Atorvastatin Calcium [Lipitor] 40 mg PO QHS #30 tab Transmission Status: Pending to [facility] Amlodipine [Norvasc] 5 mg PO DAILY #30 tab Transmission Status: Pending to [facility] Clopidogrel Bisulfate [Plavix] 75 mg PO DAILY #30 tab Transmission Status: Pending to [facility] Mirtazapine [Remeron] 15 mg PO QHS #30 tab Transmission Status: Pending to [facility] Primary Care Physician: Joao Elliott DO [Primary Care Provider] - Please follow up with your Primary Care Physician in: 1 week. Please Follow Up With: Dr. oJao Elliott, PCP When: Tuesday Please Follow Up With: Tree Colon When: As scheduled. Please Follow Up With: Sleep Study When: Please Follow Up With: Elizabeth Walton CNP (Pulmonary) When: Tuesday Please Follow Up With: Dr. Jason Russo, Neurologist When: Tuesday Disposition: Home Minutes spent on discharge:: 30 Patient Condition:: Good Medical Necessity - Tobacco Use Smoking Status: Light Smoker (<10/day) Tobacco Use: Cigarettes Meaningful Use Info Meaningful Use Diagnoses (Choose all that apply): None applicable
--- NOTE | 2019-10-16 08:47 | PCA ---
Reweighed pt. due to 4.5 lb weight increase. RN present and verified that weight was accurate.
[2019-10-16] MEDS: Losartan Potassium 50 MG Tablet PO (09:03)
[2019-10-16] MEDS: Cefadroxil 500 MG CAPSULE 1000 MG PO ×2 (09:03→21:38)
[2019-10-16] MEDS: amLODIPine 10 MG Tablet PO (09:03)
[2019-10-16] MEDS: Clopidogrel Bisulfate 75 MG Tablet PO (09:03)
[2019-10-16] MEDS: Venlafaxine XR 75 MG Capsule PO (09:03)
[2019-10-16] MEDS: Aspirin 81 MG TAB.CHEW PO (09:03)
--- NOTE | 2019-10-16 10:53 | CASEMGMT ---
Social Work None of the [place] Locations have ST. Contacted to provide other options. chose [facility]. Referral made for PT/OT/ST. Plan: DC home with 10/16 with [facility] PT/.OT/ST DARBY GibbonsW
[2019-10-16 16:29] VITALS: BMI 31.1
[2019-10-16 19:08] VITALS: BP 134/73; PULSE 99; RESP 16; TEMP 36.8; O2SAT 98
[2019-10-16 20:00] VITALS: PULSE 99; RESP 16; O2SAT 98; BMI 31.1
[2019-10-16] MEDS: Ipratropium Bromide 0.06% NASAL SPRAY 2 SPRAY NASAL (20:13)
[2019-10-16] MEDS: traZODone 50 MG Tablet PO (21:38)
[2019-10-16] MEDS: Mirtazapine 15 MG Tablet PO (21:38)
[2019-10-16] MEDS: Atorvastatin Calcium 40 MG Tablet PO (21:38)
[2019-10-16] MEDS: Oxymetazoline 0.05% 1 SPRAY SPRAY.BTL 2 SPRAY NASAL (21:39)
--- NOTE | 2019-10-17 04:20 | NURSING ---
Reviewed and agree with [employer]UC[employer]AN documentation and charting.
[2019-10-17] MEDS: Enoxaparin 40 MG/0.4 ML Syringe SC (05:56)
[2019-10-17 07:31] VITALS: BP 126/83; PULSE 68; RESP 16; TEMP 36.6; O2SAT 96
[2019-10-17] MEDS: Clopidogrel Bisulfate 75 MG Tablet PO (07:41)
[2019-10-17] MEDS: Venlafaxine XR 75 MG Capsule PO (07:42)
[2019-10-17] MEDS: Losartan Potassium 50 MG Tablet PO (07:42)
[2019-10-17] MEDS: Cefadroxil 500 MG CAPSULE 1000 MG PO (07:42)
[2019-10-17] MEDS: amLODIPine 10 MG Tablet PO (07:42)
[2019-10-17] MEDS: Aspirin 81 MG TAB.CHEW PO (07:42)
[2019-10-17 08:21] VITALS: BMI 31.1
[2019-10-17 10:36] VITALS: BP 126/82; PULSE 68; RESP 16; TEMP 36.6; O2SAT 96
--- NOTE | 2019-10-17 10:37 | NURSING ---
discharged home with . discharge instructions, medications and appointments reviewed with pt and . denies questions or concerns
== END 2019-10-17 10:25 | disposition home health service (06) | DRG 57 ==
PROVIDERS: Admitting Provider Internal Medicine; PCP Family Medicine; Visit Provider Internal Medicine
DX: I69.311 Memory deficit following cerebral infarction (principal); M19.90 Unspecified osteoarthritis, unspecified site; G47.33 Obstructive sleep apnea (adult) (pediatric); I10 Essential (primary) hypertension; M06.00 Rheumatoid arthritis without rheumatoid factor, unspecified site; G25.81 Restless legs syndrome; N40.0 Benign prostatic hyperplasia without lower urinary tract symptoms; R45.87 Impulsiveness; G47.00 Insomnia, unspecified; E78.5 Hyperlipidemia, unspecified; I48.0 Paroxysmal atrial fibrillation; L03.032 Cellulitis of left toe; F17.210 Nicotine dependence, cigarettes, uncomplicated; Z86.19 Personal history of other infectious and parasitic diseases; K21.9 Gastro-esophageal reflux disease without esophagitis; F32.9 Major depressive disorder, single episode, unspecified
CPT/HCPCS: 36415; 80053; 80061; 83735; 85027; 92507; 92523; 92526; 92610; 94762; 96125; 97110; 97112; 97116; 97129; 97130; 97162; 97166; 97530; 97535; 97537; 97802; 97803; 99251; G0463

== ENCOUNTER → 2019-10-26 19:47 | Outpatient (CLI) | payer MEDICARE, SELFPAY ==
[2019-10-17 08:21] VITALS: BMI 31.1
== END ==
PROVIDERS: PCP Family Medicine; Referring Provider Family Medicine Geriatric Medicine; Visit Provider Family Medicine Geriatric Medicine
DX: G47.30 Sleep apnea, unspecified (principal)
CPT/HCPCS: 95811

== ENCOUNTER → 2019-11-15 11:09 | Outpatient (CLI) | payer MEDICARE, SELFPAY ==
[2019-11-06 15:38] VITALS: BMI 31.1
[2019-11-15 11:32] LABS: Absolute Lymphocyte Count 1.82 X10^3/uL (0.83-4.51); Absolute Neutrophil Count 5.1 X10^3/uL (2.0-7.7); Basophil# 0.03 X10^3/uL; Basophil% 0.4 % (0-1); Eosinophil# 0.18 X10^3/uL; Eosinophils% 2.4 % (0-5); Hematocrit 47.5 % (40-54); Hemoglobin 14.6 g/dL (13.0-16.5); Lymphocyte # 1.82 X10^3/ul (4.0); Lymphocyte % 23.9 % (19-41); Mean Corp Hgb Conc 30.7 g/dL (32-36); Mean Corpuscular Hgb 26.4 pg (27.0-32.0); Mean Corpuscular Volume 86.1 fL (80-94); Mean Platelet Vol. 10.1 fl (6.2-12.0); Monocyte# 0.46 X10^3/uL; NRBC Flagged by Analyzer 0 % (0-5); Neutrophil # 5.11 X10^3/uL (2.7-7.7); Platelet Count 183 K/mm3 (150-450); RBC Distribution Width CV 12.4 % (11.6-14.6); RBC Distribution Width SD 39.6 fl (35.1-43.9); Red Blood Count 5.52 M/mm3 (4.6-6.2); White Blood Count 7.6 K/mm3 (4.4-11.0)
[2019-11-15 12:05] LABS: AST(SGOT) 12 U/L (15-37); Alanine Aminotransfer ALT/SGPT 16 U/L (16-61); Albumin, Serum 3.5 g/dL (3.2-5.0); Alkaline Phosphatase 68 U/L (45-117); Anion Gap 7 (5-15); BUN 14 mg/dL (7-18); BUN/Creat Ratio 14.7 RATIO (10-20); Calcium,Total 8.7 mg/dL (8.5-10.1); Chloride 107 mmol/L (98-107); Creatinine, Serum 0.95 mg/dL (0.70-1.30); EST Glomerular Filtration Rate 84 mL/min (>60); Est Glom Filt Rate - Afr Amer 102 mL/min (>60); Globulin 3.6 g/dL (2.2-4.2); Glucose 125 mg/dL (74-106); Magnesium 2.3 mg/dL (1.6-2.6); Protein, Total 7.1 g/dL (6.4-8.2); Sodium Level 141 mmol/L (136-145); Thyroid Stim Hormone (TSH) 0.71 uIU/mL (0.358-3.74)
== END ==
PROVIDERS: PCP Family Medicine; Referring Provider Specialist; Visit Provider Specialist
DX: I47.2 Ventricular tachycardia (principal); I35.0 Nonrheumatic aortic (valve) stenosis; I42.2 Other hypertrophic cardiomyopathy; I11.9 Hypertensive heart disease without heart failure; G47.33 Obstructive sleep apnea (adult) (pediatric)
CPT/HCPCS: 36415; 80053; 83735; 84443; 85025

== ENCOUNTER → 2019-11-20 12:50 | Outpatient (CLI) | payer MEDICARE, SELFPAY ==
[2019-11-06 15:38] VITALS: BMI 31.1
[2019-11-20 13:24] LABS: International Normalized Ratio 1.1; Prothrombin Time (Protime)PT. 13.2 SECONDS (11.7-14.9)
[2019-11-20 13:26] LABS: Partial Thromboplast Time 29.9 Seconds (24.1-36.2)
== END ==
PROVIDERS: PCP Family Medicine; Referring Provider Specialist; Visit Provider Specialist
DX: I66.9 Occlusion and stenosis of unspecified cerebral artery (principal); I47.2 Ventricular tachycardia
CPT/HCPCS: 36415; 85610; 85730

== ENCOUNTER 2019-11-22 09:01 | Day surgery (SDC) | payer MEDICARE, SELFPAY ==
[2019-11-06 15:38] VITALS: BMI 31.1
[2019-11-22] VITALS (14 sets, daily range): BP systolic 107–144; BP diastolic 63–128; PULSE 60–110; RESP 11–19; TEMP 36.7–36.9; O2SAT 93–98; BMI 36.7
--- NOTE | 2019-11-22 12:45 | EKG12_ITS ---
Test Reason : POST CATH Blood Pressure : / mmHG Vent. Rate : 063 BPM Atrial Rate : 063 BPM P-R Int : 166 ms QRS Dur : 090 ms QT Int : 406 ms P-R-T Axes : 020 051 038 degrees QTc Int : 415 ms Normal sinus rhythm Normal ECG Confirmed by DAO GUPTA, ESTHER ([id number]), online content editor KRISHNA PABLO ([id number]) on 11/28/2019 10:28:10 AM Referred By: Juju Multani Confirmed By:ESTHER DC MD
[2019-11-22] MEDS: Clopidogrel Bisulfate 75 MG Tablet PO (13:11)
[2019-11-22] MEDS: 0.9% Normal Saline 1,000 ML 100 ML IV (13:11)
[2019-11-22] MEDS: Aspirin 81 MG TAB.CHEW PO (13:11)
--- NOTE | 2019-11-22 13:17 | CL.I_ITS ---
Patient Name: AMANDA DAVID Study Date: 11/22/2019 Performing: Naun Multani MD Ht: inches cm : 1955 Wt: 256.1 lbs 116 kg Age: 64 Gender: male BSA: PROCEDURE(S) PERFORMED ZV51-UMQ/COR FP94-MEM, CORONARY OR GRAFT, INITIAL VESSEL LI73-PTO, CORONARY OR GRAFT, EACH ADD'L VESSEL VU14-EEG W OR WO PTCA, SINGLE CORONARY ARTERY VQ71-LZW W OR WO PTCA, SINGLE CORONARY ARTERY CLINICAL PROFILE AND CO-MORBIDITIES Indications: Suspected CAD Heart Failure: None Stress/Imaging Stress/Image Study Performed: No CAD Presentations: Other: V tach CONCLUSIONS Multivessel CAD as described. Successful FFR guided PCI of LAD with BRYCE. Successful PCI of OM2 with D ES. FFR of the pLCx was 0.95 and the lesion in the ostial/proximal LCx will be managed medically. RECOMMENDATIONS ASA Indefinitley Plavix for at least 12 months Pt. should return for PCI of RPL in 2-3 weeks DESCRIPTION OF PROCEDURE The patient arrived to the procedure lab. The risks and benefits of the procedure as well as a full d escription of our services here and lack of surgical backup were fully explained to the patient and/o r their significant other prior to the catheterization. The Timeout was completed, verifying the kristine ect patient and procedure. The patient's procedural site was prepped and draped in the usual fashion. Local anesthetic was given subcutaneously to right radial region with Lidocaine 2%. Using a modified Seldinger technique, arterial access was obtained via the right radial artery, a 6Fr sheath was inse rted.. Left Coronary Artery selective angiography was performed in multiple views using a 5 Fr. JL3. 5 catheter. Right Coronary Artery selective angiography was then performed in multiple views using a 5 Fr. JR 4 catheterThe images were reviewed and options discussed. A decision was then made to procee d with an Intervention, IVUS or other adjunct procedure. Arterial sheath was exchanged for a 6 Fr 70cm Sheath. XB 3.0 Guide catheter was inserted and eng aged into the LCA. The FFR/iFR wire was inserted. Adenosine was then given per protocol. FFR Ratio Ba seline: 0.84 FFR Ratio Baseline: 0.74 Adenosine was then given per protocol. FFR Ratio Baseline: 0.99 FFR Ratio post Adenosine: 0.95 The FFR/iFR wire was then removed. Emerge 2.00x12 Balloon catheter wa s inserted. PTCA balloon inflated at 8 atms for 11 secs. PTCA balloon inflated at 6 atms for 6 secs. PTCA balloon inflated at 6 atms for 8 secs. Synergy 2.25x32 Drug Eluting stent was inserted. Angiogra m performed post stent deployment. Guide wire was repositioned to the LAD Emerge 2.00x8 Ball[address] was inserted. PTCA balloon inflated at 12 atms for 28 secs. PTCA balloon inflated at 11 atms for 9 secs. PTCA balloon inflated at 10 atms for 10 secs. PTCA balloon inflated at 14 atms for 22 secs. P TCA balloon inflated at 14 atms for 13 secs. PTCA balloon inflated at 14 atms for 16 secs. Angiogram performed post balloon dilatation. NC Euphora 2.25x15 Balloon catheter was inserted. PTCA b alloon inflated at 12 atms for 8 secs. Angiogram performed post balloon dilatation. BMW Guide wire wa s advanced to the LAD as yen wire NC Euphora 2.25x15 Balloon catheter was inserted. Synergy 2.25x16 Drug Eluting stent was inserted. Angiogram performed post stent deployment. The arterial sheath wa s pulled and a TR Band was applied for hemostasis w/ 13 ml air CORONARY ANGIOGRAPHY DOMINANCE: Right Dominant LEFT MAIN: Mild luminal irregularities LEFT ANTERIOR DESCENDING ARTERY: MID LAD: 70-80 % Stenosis DISTAL LAD: severe diffuse disease CIRCUMFLEX ARTERY: 40-50 % Stenosis PROX CIRC: 95-99 % Stenosis OM 2: Distal - 60 % Stenosis RIGHT CORONARY ARTERY: PROX RCA: 25 % Stenosis MID RCA: 25-30 % Stenosis DISTAL RCA: 30-40 % Stenosis RT PLV: 90-95 % Stenosis INTERVENTION INFORMATION LESION SITE: LAD (Mid) Lesion Complexity: High/C, chronic total occlusion: No, lesion at bifurcation: No, thrombus present: No, lesion length: 15 mm, culprit lesion: Yes, Previously treated lesion: No Pre Stenosis: 70-80 % Pre intervention JUANA flow: 3 PROCEDURE: FFR, Drug Eluting Stent with pre dilatation. Post Stenosis: 0 % Post intervention JUANA flow: 3 Lesion Devices: Cardinal 6 Fr XB3.0 100cm Guide Catheter IGT Devices ( Formerly Williams) Coronary FFR Wire Hardik Sci EMERGE MR 2.00x08 BALLOON Medtronic NC EUPHORA RX 2.25x15 BALLOON Hardik Sci Synergy MR BRYCE 2.25x16 Young .014 BMW [place] Straight 190cm LESION SITE: Circumflex (Proximal) PROCEDURE: FFR Lesion Devices: Cardinal 6 Fr XB3.0 100cm Guide Catheter IGT Devices ( Formerly Williams) Coronary FFR Wire LESION SITE: 1st OM (Proximal) Lesion Complexity: High/C, chronic total occlusion: No, lesion at bifurcation: Yes, thrombus present: No, lesion length: 30 mm, culprit lesion: Yes, Previously treated lesion: No Pre Stenosis: 99 % Pre intervention JUANA flow: 3 PROCEDURE: Drug Eluting Stent with pre dilatation. Prior to proceeding with PCI, CABG option was discussed with patient. Pt. understood the options and risk abd benefits. He preferred multivessel PCI which is reasonable in this patient. Due to severe di ffuse disease in the LAD, it is not a very good target for CABG. Pt.'s insurance situation was discus sed with him as well. 0 % Post intervention JUANA flow: 3 Lesion Devices: Cardinal 6 Fr XB3.0 100cm Guide Catheter IGT Devices ( Formerly Williams) Coronary FFR Wire Hardik Sci EMERGE MR 2.00x12 BALLOON Hardik Sci Synergy MR BRYCE 2.25x32 COMPLICATIONS No Complications PROCEDURE MEDICATIONS Versed 1 mg IV Fentanyl 50 mcg IV Oxygen: 2 L/min via nasal cannula Adenosine drip for FFR 65.6 ml IV @ 11/22/2019 11:27:49 Heparin diluted in 23cc Heparinized saline. Patient given 10cc IA of this solution. 11/22/2019 10:44: 20 Heparin 6000 unit(s) IV 11/22/2019 11:06:08 Heparin 1000 unit(s) IV 11/22/2019 11:26:52 Verapamil 2.5mg, Ntg 100mcgs, 2000 units of Heparin diluted in 23cc Heparinized saline. Patient give n 10cc IA of this solution. 11/22/2019 10:44:20 IV Bolus: .9 NaCl 300ml total 11/22/2019 10:57:08 SUMMARY OF HEMODYNAMIC DATA Time AIR REST ECG 09:20:23 AO 84/57 (74) SA 10:46:52 AO 108/61 (81) 11:26:10 Signed By Naun Multani MD On 11/22/2019 13:16:04 Naun Multani MD
[2019-11-22] MEDS: traZODone 50 MG Tablet PO (20:59)
[2019-11-22] MEDS: Atorvastatin Calcium 40 MG Tablet PO (20:59)
[2019-11-22] MEDS: Carvedilol 6.25 MG Tablet PO (20:59)
[2019-11-23] VITALS (7 sets, daily range): BP systolic 101–117; BP diastolic 58–71; PULSE 62–77; RESP 14–17; TEMP 36.2–36.8; O2SAT 92–97
[2019-11-23 05:48] LABS: Hematocrit 43.8 % (40-54); Hemoglobin 14.2 g/dL (13.0-16.5); Mean Corp Hgb Conc 32.4 g/dL (32-36); Mean Corpuscular Hgb 27.9 pg (27.0-32.0); Mean Corpuscular Volume 86.1 fL (80-94); Mean Platelet Vol. 11.2 fl (6.2-12.0); Platelet Count 158 K/mm3 (150-450); RBC Distribution Width CV 12.2 % (11.6-14.6); RBC Distribution Width SD 38.6 fl (35.1-43.9); Red Blood Count 5.09 M/mm3 (4.6-6.2); White Blood Count 6.3 K/mm3 (4.4-11.0)
--- NOTE | 2019-11-23 06:00 | HP_ITS ---
HPI HPI History of Present Illness Details: 11/20/2019: 64-year-old male with history of mild attic stenosis, asymmetric septal hypertrophy, grade 1 diastolic dysfunction, history of rheumatic fever as a child, essential hypertension, sleep apnea, CVA, referred to us because of 16-second run of what appears to be possible nonsustained ventricular tachycardia detected on event monitoring that was ordered as part of work-up for his CVA. Patient was asymptomatic during this time. He does complain of fatigue. He denies any chest pain or dyspnea on exertion. Intake Vital Signs 11/20/19 Weight: 256 lb 11/20/19 BP 116/67 11/20/19 Respiration 19 H 11/20/19 Pulse 78 Intake Visit Reasons: CVA, POSS A FIB (INPT REHAB - 30 DAY MONITOR) Pearl Fisherman Required: No Accompanied by: Is patient in pain?: No Allergies No Known Allergies Allergy (Verified 11/20/19 11:24) Medications Aspirin [Aspirin, Baby] 81 mg PO DAILY@0800 09/28/19 [History Confirmed 11/20/19] olmesartan 40 mg-hydrochlorothiazide 12.5 mg tablet 1 tab PO DAILY #90 tab 11/14/19 [Rx Confirmed 11/20/19] atorvastatin 40 mg tablet 40 mg PO QHS #90 tab 11/15/19 [Rx Confirmed 11/20/19] clopidogrel 75 mg tablet 75 mg PO DAILY #90 tab 11/15/19 [Rx Confirmed 11/20/19] trazodone 50 mg tablet 50 mg PO QHS #90 tab 11/15/19 [Rx Confirmed 11/20/19] venlafaxine 75 mg capsule,extended release 24 hr 75 mg PO DAILY #90 cap 11/15/19 [Rx Confirmed 11/20/19] [facility] Medical History NSVT (nonsustained ventricular tachycardia) (Acute) Essential hypertension (Chronic) Osteoarthritis (Chronic) Obstructive sleep apnea (Chronic) Intracranial embolism and thrombosis (Acute) History of multiple cerebrovascular accidents (CVAs) (Chronic) Restless leg syndrome (Chronic) Diverticulosis (Chronic) 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 (Chronic) History of rheumatic fever as a child (Chronic) Grade I diastolic dysfunction (Chronic) Asymmetric septal hypertrophy (Chronic) Aortic stenosis, mild (Chronic) Eczema (Chronic) Discoid eczema (Chronic) Rheumatoid arthritis (Chronic) History of stroke (Inactive) Surgical History History of cardiac radiofrequency ablation (Chronic) History of ankle fusion (Chronic) History of appendectomy (Resolved) History of colonoscopy (Resolved) History of colostomy (Resolved) History of incisional hernia repair (Resolved) History of tonsillectomy and adenoidectomy (Resolved) Family History Father Sudden cardiac Blood clot to heart Brother Sleep apnea Heart disease Social History (Updated 11/20/19 @ 16:[address] Juju Multani MD) Smoking Status: Former smoker quit date: 02/22/16 Tobacco: How many years used: 20 how long ago did patient quit smokin second hand exposure: Yes alcohol intake: current alcohol intake frequency: a few times a week Alcohol type: beer substance use type: does not use caffeine: Yes Type: coffee Number of servings: 2 ROS Const Const: Positive for fatigue; negative for weakness, headache(s), frequent falls, difficulty sleeping or excessive sweating Eyes Eyes: Negative for loss of peripheral vision, transient loss of vision, blurry vision, double vision or tunnel vision ENT ENT: Negative for headache(s), dizziness, Nosebleed/epistaxis or balance problems Cardio Chest Pain: No Palpitations: No Edema: None Muscle aches with walking: None Resp Respiratory: Negative for SOB with activity, SOB at rest, SOB orthopnea\SOB lying down, Cough or paroxysmal nocturnal dyspnea GI GI: Negative nausea, vomiting, heartburn or black,tarry stools : Negative for hematuria Musc Musc: Positive for joint pain; negative for muscle aches/ myalgia, muscle weakness (Left hand falling asleep. ) or balance problems Skin Skin: Negative non-healing lesions, rash or unusual bruising Neuro Neuro: Positive for lightheadedness (Occasionally when standing up too fast. ); negative for dizziness, near syncope, syncope, frequent falls, headache(s), weakness, blurry vision, double vision or lack of coordination Sammy Hematologic/Lymphatic: Negative for easy bleeding or easy bruising Endo Endo: Positive for fatigue; negative for excessive sweating or increased thirst/drinking Psych Psych: Negative for anxiety or depression Allergy Allergy/Immunology: Negative for hives, Negative for rash Cardiology Exam Const Appearance: cooperative; negative acute distress Nutritional Appearance: well nourished Head Head: normocephalic and atraumatic Ears: hearing grossly normal bilaterally Nose: external nose normal Face and Sinus: face symmetric Mouth: moist mucous membranes Teeth and gingiva: fair dentition Eyes General: appearance normal, both eyes and all related structures Eyelids: eyelids normal Conjunctivae: conjunctivae normal Neck Neck: trachea midline and no JVD Chest Chest inspection: symmetric chest movement; negative pursed lip breathing Auscultation: Bilateral: Clear to Auscultation Cardio Rate: regular rate Rhythm: regular rhythm Heart sounds: S1 normal and S2 normal Murmur: Grade 3/6 and early systolic GI GI: normal to inspection Neuro General: alert, awake and oriented x3 Gait: Negative ataxic Skin Skin: no rashes or lesions noted; negative atrophy or jaundice Extremities Pulses: Normal: Right Posterior Tibial Pulse, Left Posterior Tibial Pulse Lower Extremity Edema: None: Bilateral Musculoskel Musculoskeletal: No joint tenderness Psych Psychological: normal affect Assessment & Plan 1. NSVT (nonsustained ventricular tachycardia) I47.2 Plan Patient had a 16-second run of nonsustained V. tach. His potassium, magnesium, TSH were unremarkable. In this 64-year-old patient with hypertension and other vascular disease (CVA), I think it is reasonable to rule out ischemic etiology for his nonsustained ventricular tachycardia. We will proceed with coronary angiography to evaluate this further. Orders Orders: Left Heart Cath/COR/LV Percut Today 12 Lead EKG performed by [facility] Today Prothrombin Time w/INR Today 2. Essential hypertension I10 Plan Continue present management. At next visit we will consider switching from ARB/diuretic to beta-gigi. Orders Orders: 12 Lead EKG performed by [facility] Today 3. Asymmetric septal hypertrophy I42.2 Plan Detail Other Orders Orders: 12 Lead EKG performed by [facility] Today G47.33, Z86.73 Partial Thromboplast Time Today I66.9 Follow Up 4 Weeks Coding Level of Care Code Off vis,new,level 4 Diagnoses NSVT (nonsustained ventricular tachycardia) I47.2 Essential hypertension I10 Asymmetric septal hypertrophy I42.2 Coding Level of Care Code Off vis,new,level 4 Diagnoses NSVT (nonsustained ventricular tachycardia) I47.2 Essential hypertension I10 Asymmetric septal hypertrophy I42.2 Supplemental Info Supplemental Information Labs LDL Cholesterol 75 mg/dL (0-130) 09/29/19 HDL Cholesterol 35 mg/dL (40-) L 09/29/19 Triglycerides 125 mg/dL (-199) 09/29/19 VLDL Cholesterol 25 mg/dL (5-40) 09/29/19 Diagnostics Electrocardiogram 11/20/19
[2019-11-23 06:10] LABS: ALB/GLOB Ratio 0.9 RATIO (0.9-2.4); AST(SGOT) 15 U/L (15-37); Alanine Aminotransfer ALT/SGPT 17 U/L (16-61); Albumin, Serum 3.2 g/dL (3.2-5.0); Alkaline Phosphatase 64 U/L (45-117); Anion Gap 6 (5-15); BUN 20 mg/dL (7-18); BUN/Creat Ratio 22.3 RATIO (10-20); Calcium,Total 8.4 mg/dL (8.5-10.1); Chloride 107 mmol/L (98-107); EST Glomerular Filtration Rate 90 mL/min (>60); Est Glom Filt Rate - Afr Amer 109 mL/min (>60); Estimated Creatinine Clearance 83.36 ml/min; Globulin 3.4 g/dL (2.2-4.2); Glucose 98 mg/dL (74-106); Potassium 3.7 mmol/L (3.5-5.1); Protein, Total 6.6 g/dL (6.4-8.2); Sodium Level 140 mmol/L (136-145)
--- NOTE | 2019-11-23 09:38 | CRPHASE1_ITS ---
Patient Communication PHII Cardiac Rehab Discussed with Patient:: Yes Guide to Cardiac Rehab Given to Patient:: Yes Cardiac Rehab Facility Choice List Given to Patient:: Yes - [facility] Choice Program Other:: Communication Given to CR, With permission faxed order and referral information Rubber Turner:: Juju Multani Refer Phase II Cardiac Rehab:: Yes - to occur after discharge Risk Factors/Lifestyle Family History: Family History (Last Reviewed 11/20/19 @ 16:[address] Juju Multani MD) Father Sudden cardiac Brother Sleep apnea Heart disease Cardiac Rehabilitation Info Cardiac Rehabilitation Program Information: Cardiac Rehabilitation is important for patients like you who are recovering from a heart problem. Cardiac rehabilitation programs are recognized as integral to the continued care of the patient with coronary heart disease. The cardiac rehabilitation program is designed to optimize a patient's physical, psychological, and social functioning. Health administrator health care facility work in cardiac rehabilitation programs and assist you with getting the treatments you need to get stronger and healthier - like exercise, healthy eating habits, and medications. Cardiac rehabilitation has been show to help people with heart problems live longer and have better life enjoyment than people who do not go to cardiac rehabilitation. Please contact the Cardiac Rehabilitation Program at [facility] at in two weeks if you have not heard from them.
--- NOTE | 2019-11-23 09:40 | CRPH1.INSTRU ---
General Education CAD and cardiac anatomy and function:: Patient communicates acknowledgment Explanation of diagnoses and procedures:: Patient communicates acknowledgment Sign/Symptoms of [place]:: Patient communicates acknowledgment Antiplatelet therapy: Patient communicates acknowledgment Proper use of NTG-SL: Patient communicates acknowledgment Emergency procedures and activation of EMS: Patient communicates acknowledgment Compliance of all prescribed medications: Patient communicates acknowledgment Smoking Patient Nicotine/Smoking Risk Factors Are:: Cigarettes Recommendations Include:: Previous smoker; encourage continued cessation Nicotine/Smoking Response Code:: Patient communicates acknowledgment Dyslipidemia Patient Dyslipidemia Risk Factors Are:: Total Cholesterol - 135, Triglycerides - 125, HDL - 35, LDL - 75 Recommendations Include:: Lipid profile provided, Reviewed NCEP/ATP guidelines, Therapeutic Lifestyle Change dietary guidelines Dyslipidemia Response Code:: Patient communicates acknowledgment Overweight/Obesity Patient Overweight/Obesity Risk Factors Are:: Obesity - > or = 30 Recommendations Include:: Weight loss of 5-10%, Reduced calorie diet Overweight/Obesity:: Patient communicates acknowledgment Hypertension Patient Hypertension Risk Factors Are:: No documented hx of HTN Heart Disease Recommendations Include:: Educated family members of their risk, Educated family members of importance of prevention of heart disease Heart Disease Response Code:: Needs reinforcement Metabolic Syndrome Patient Metabolic Syndrome Risk Factors Are [3 of 5]:: Waist circumference > 35 [female] or 40 [male] Sedentary Patient Sedentary Risk Factors Are:: Lack of regular exercise Recommendations Include:: Aerobic exercise 5-7 times/week for 20-30 minutes continuously, Benefits of regular exercise, Discussed home walking program, Monitored Outpatient Cardiac Rehab Sedentary Response Code:: Needs reinforcement Stress Recommendations Include:: Identification of stressors, and assessment of coping skills, Stress management techniques Stress Response Code:: Needs reinforcement
[2019-11-23] MEDS: Carvedilol 6.25 MG Tablet PO (09:42)
[2019-11-23] MEDS: Clopidogrel Bisulfate 75 MG Tablet PO (09:42)
[2019-11-23] MEDS: Venlafaxine XR 75 MG Capsule PO (09:42)
[2019-11-23] MEDS: Aspirin 81 MG TAB.CHEW PO (09:42)
--- NOTE | 2019-11-23 10:00 | EKG12_ITS ---
Test Reason : AM EKG Blood Pressure : / mmHG Vent. Rate : 059 BPM Atrial Rate : 059 BPM P-R Int : 160 ms QRS Dur : 090 ms QT Int : 422 ms P-R-T Axes : 036 057 049 degrees QTc Int : 417 ms Sinus bradycardia Low voltage QRS (Limb Leads) Borderline ECG Confirmed by DAO GUPTA, ESTHER ([id number]), technical editor KRISHNA PABLO ([id number]) on 11/28/2019 10:19:24 AM Referred By: Juju Multani Confirmed By:ESTHER DC MD
--- NOTE | 2019-11-23 10:31 | PCM.DC.CCA ---
Discharge Diet: Low fat/ Low Cholesterol Discharge Activity: Return to Normal Activity May shower in (days): 1 - No tub baths for 5 days May resume sexual activity in: 1-2 weeks Lifting Restrictions: Do not lift anything greater than 10 pounds for 3 days. Call your doctor if your incision/area has: Continuous Slow Oozing, Sudden Increased Bleeding, Increased Pain/ Swelling, Increased Redness, Foul Smelling Discharge, Swelling at the incision site Call your doctor if you observe: Fever of 101 or Higher, Shortness of breath, Chest pain Remove Dressing in (days):: 1 Cleanse incision/area with: Soap & Water Additional Instructions: You will continue with Aspirin and Plavix therapy. The goal is to remain on Plavix therapy consistently for at least 1 year. If anyone asks you to stop this medication, please call the [facility] Office at [phone], option 4. You will be scheduled for an outpatient elective PCI/stenting procedure. This will be arranged for you and you will be contacted accordingly. A new prescription for carvedilol/Coreg was sent to your local pharmacy, [facility]. This replaces your olmesartan?hydrochlorothiazide 40-12.5 mg p.o. daily tablet. If you have any questions or concerns at any point, please call the [facility] office at [phone]. Allergies/Adverse Reactions: Allergies No Known Allergies Allergy (Verified 11/21/19 10:11) Medications to take at Discharge Aspirin [Aspirin, Baby] 81 mg PO DAILY@0800 09/28/19 atorvastatin 40 mg tablet 40 mg PO QHS #90 tab 11/15/19 clopidogrel 75 mg tablet 75 mg PO DAILY #90 tab 11/15/19 trazodone 50 mg tablet 50 mg PO QHS #90 tab 11/15/19 venlafaxine 75 mg capsule,extended release 24 hr 75 mg PO DAILY #90 cap 11/15/19 Carvedilol [Coreg (Beta Ashley)] 6.25 mg PO BID #180 tab 11/23/19 Primary Care Physician: Joao Elliott DO [Primary Care Provider] - Test Results: Test results from this visit will be discussed in further detail at your follow-up appointment, if applicable. Please Follow Up With: Dr. Multani When: 12/18/2019 at 11:45 Please Follow Up With: Dr. Multani When: You will be contacted and scheduled in regards to next procedure. Proposed Discharge Date: 11/23/19 Cardiac Rehabilitation Info Cardiac Rehabilitation Program Information: Cardiac Rehabilitation is important for patients like you who are recovering from a heart problem. Cardiac rehabilitation programs are recognized as integral to the continued care of the patient with coronary heart disease. The cardiac rehabilitation program is designed to optimize a patient's physical, psychological, and social functioning. Health med care manager work in cardiac rehabilitation programs and assist you with getting the treatments you need to get stronger and healthier - like exercise, healthy eating habits, and medications. Cardiac rehabilitation has been show to help people with heart problems live longer and have better life enjoyment than people who do not go to cardiac rehabilitation. Please contact the Cardiac Rehabilitation Program at [facility] at in two weeks if you have not heard from them.
--- NOTE | 2019-11-23 10:38 | PCM.PN.BLA ---
Progress Note Aspirin at discharge? Yes Antiplatelet therapy at discharge? Yes KE/ARB at discharge? No, will be addressed on outpatient basis Statin at discharge? Yes Beta-gigi at discharge? Yes STROKE Vital Signs/Narrative: Vital Signs Temp Pulse Resp BP Pulse Ox 11/23/19 09:32 98.2 F 77 16 117/64 94 11/23/19 07:21 76 11/23/19 07:10 92
--- NOTE | 2019-11-23 11:22 | PHA.DC.MC ---
Pharmacy Service has performed discharge medication reconciliation and counseling for this patient. The patient was counseled on the following discharge medications and changes in medications for homegoing were reviewed. 1. COREG The Reason for Use, instructions for use, and potential side effects were reviewed for all new medications. The patient's questions regarding all of their medications were answered. The patient was able to verbally demonstrate an understanding of their discharge medications. Home Medications Aspirin [Aspirin, Baby] 81 mg PO DAILY@0800 09/28/19 atorvastatin 40 mg tablet 40 mg PO QHS #90 tab 11/15/19 clopidogrel 75 mg tablet 75 mg PO DAILY #90 tab 11/15/19 trazodone 50 mg tablet 50 mg PO QHS #90 tab 11/15/19 venlafaxine 75 mg capsule,extended release 24 hr 75 mg PO DAILY #90 cap 11/15/19 Carvedilol [Coreg (Beta Ashley)] 6.25 mg PO BID #180 tab 11/23/19 The patient's discharge medication list was reviewed for discrepancies and discrepancies were resolved.
== END 2019-11-23 10:42 | disposition home or self-care (01) ==
LOC: CLSP 09:01 → PCU 11-23 07:26
PROVIDERS: PCP Family Medicine; Referring Provider Specialist; Visit Provider Specialist
DX: I25.10 Atherosclerotic heart disease of native coronary artery without angina pectoris (principal); I47.2 Ventricular tachycardia; I10 Essential (primary) hypertension; G47.30 Sleep apnea, unspecified; M19.90 Unspecified osteoarthritis, unspecified site; G47.33 Obstructive sleep apnea (adult) (pediatric); G25.81 Restless legs syndrome; M06.9 Rheumatoid arthritis, unspecified; I42.2 Other hypertrophic cardiomyopathy; Z79.899 Other long term (current) drug therapy; Z79.82 Long term (current) use of aspirin; Z87.891 Personal history of nicotine dependence; Z95.5 Presence of coronary angioplasty implant and graft
CPT/HCPCS: 80053; 85027; 92928; 93005; 93458; 93571; 93572; 99152; 99153; J0153; J7030; J7040; Q9967; C1725; C1769; C1874; C1887; C1894; C9600; J1327

== ENCOUNTER 2019-12-13 10:01 | Day surgery (SDC) | payer MEDICARE, SELFPAY ==
[2019-11-22 12:47] VITALS: BMI 36.7
[2019-12-12 07:59] VITALS: BMI 36.6
[2019-12-12 08:39] VITALS: BMI 36.5
[2019-12-13] VITALS (13 sets, daily range): BP systolic 132–153; BP diastolic 63–93; PULSE 53–75; RESP 11–19; TEMP 36.7–36.9; O2SAT 92–99; BMI 36.6
--- NOTE | 2019-12-13 10:00 | HP_ITS ---
HPI HPI History of Present Illness Details: 11/20/2019: 64-year-old male with history of mild attic stenosis, asymmetric septal hypertrophy, grade 1 diastolic dysfunction, history of rheumatic fever as a child, essential hypertension, sleep apnea, CVA, referred to us because of 16-second run of what appears to be possible nonsustained ventricular tachycardia detected on event monitoring that was ordered as part of work-up for his CVA. Patient was asymptomatic during this time. He does complain of fatigue. He denies any chest pain or dyspnea on exertion. Intake Vital Signs 11/20/19 Weight: 256 lb 11/20/19 BP 116/67 11/20/19 Respiration 19 H 11/20/19 Pulse 78 Intake Visit Reasons: CVA, POSS A FIB (INPT REHAB - 30 DAY MONITOR) Software Applications Developer Required: No Accompanied by: Is patient in pain?: No Allergies No Known Allergies Allergy (Verified 11/20/19 11:24) Medications Aspirin [Aspirin, Baby] 81 mg PO DAILY@0800 09/28/19 [History Confirmed 11/20/19] olmesartan 40 mg-hydrochlorothiazide 12.5 mg tablet 1 tab PO DAILY #90 tab 11/14/19 [Rx Confirmed 11/20/19] atorvastatin 40 mg tablet 40 mg PO QHS #90 tab 11/15/19 [Rx Confirmed 11/20/19] clopidogrel 75 mg tablet 75 mg PO DAILY #90 tab 11/15/19 [Rx Confirmed 11/20/19] trazodone 50 mg tablet 50 mg PO QHS #90 tab 11/15/19 [Rx Confirmed 11/20/19] venlafaxine 75 mg capsule,extended release 24 hr 75 mg PO DAILY #90 cap 11/15/19 [Rx Confirmed 11/20/19] [facility] Medical History NSVT (nonsustained ventricular tachycardia) (Acute) Essential hypertension (Chronic) Osteoarthritis (Chronic) Obstructive sleep apnea (Chronic) Intracranial embolism and thrombosis (Acute) History of multiple cerebrovascular accidents (CVAs) (Chronic) Restless leg syndrome (Chronic) Diverticulosis (Chronic) 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 (Chronic) History of rheumatic fever as a child (Chronic) Grade I diastolic dysfunction (Chronic) Asymmetric septal hypertrophy (Chronic) Aortic stenosis, mild (Chronic) Eczema (Chronic) Discoid eczema (Chronic) Rheumatoid arthritis (Chronic) History of stroke (Inactive) Surgical History History of cardiac radiofrequency ablation (Chronic) History of ankle fusion (Chronic) History of appendectomy (Resolved) History of colonoscopy (Resolved) History of colostomy (Resolved) History of incisional hernia repair (Resolved) History of tonsillectomy and adenoidectomy (Resolved) Family History Father Sudden cardiac Blood clot to heart Brother Sleep apnea Heart disease Social History (Updated 11/20/19 @ 16:[address] Juju Multani MD) Smoking Status: Former smoker quit date: 02/22/16 Tobacco: How many years used: 20 how long ago did patient quit smokin second hand exposure: Yes alcohol intake: current alcohol intake frequency: a few times a week Alcohol type: beer substance use type: does not use caffeine: Yes Type: coffee Number of servings: 2 ROS Const Const: Positive for fatigue; negative for weakness, headache(s), frequent falls, difficulty sleeping or excessive sweating Eyes Eyes: Negative for loss of peripheral vision, transient loss of vision, blurry vision, double vision or tunnel vision ENT ENT: Negative for headache(s), dizziness, Nosebleed/epistaxis or balance problems Cardio Chest Pain: No Palpitations: No Edema: None Muscle aches with walking: None Resp Respiratory: Negative for SOB with activity, SOB at rest, SOB orthopnea\SOB lying down, Cough or paroxysmal nocturnal dyspnea GI GI: Negative nausea, vomiting, heartburn or black,tarry stools : Negative for hematuria Musc Musc: Positive for joint pain; negative for muscle aches/ myalgia, muscle weakness (Left hand falling asleep. ) or balance problems Skin Skin: Negative non-healing lesions, rash or unusual bruising Neuro Neuro: Positive for lightheadedness (Occasionally when standing up too fast. ); negative for dizziness, near syncope, syncope, frequent falls, headache(s), weakness, blurry vision, double vision or lack of coordination Sammy Hematologic/Lymphatic: Negative for easy bleeding or easy bruising Endo Endo: Positive for fatigue; negative for excessive sweating or increased thirst/drinking Psych Psych: Negative for anxiety or depression Allergy Allergy/Immunology: Negative for hives, Negative for rash Cardiology Exam Const Appearance: cooperative; negative acute distress Nutritional Appearance: well nourished Head Head: normocephalic and atraumatic Ears: hearing grossly normal bilaterally Nose: external nose normal Face and Sinus: face symmetric Mouth: moist mucous membranes Teeth and gingiva: fair dentition Eyes General: appearance normal, both eyes and all related structures Eyelids: eyelids normal Conjunctivae: conjunctivae normal Neck Neck: trachea midline and no JVD Chest Chest inspection: symmetric chest movement; negative pursed lip breathing Auscultation: Bilateral: Clear to Auscultation Cardio Rate: regular rate Rhythm: regular rhythm Heart sounds: S1 normal and S2 normal Murmur: Grade 3/6 and early systolic GI GI: normal to inspection Neuro General: alert, awake and oriented x3 Gait: Negative ataxic Skin Skin: no rashes or lesions noted; negative atrophy or jaundice Extremities Pulses: Normal: Right Posterior Tibial Pulse, Left Posterior Tibial Pulse Lower Extremity Edema: None: Bilateral Musculoskel Musculoskeletal: No joint tenderness Psych Psychological: normal affect Assessment & Plan 1. NSVT (nonsustained ventricular tachycardia) I47.2 Plan Patient had a 16-second run of nonsustained V. tach. His potassium, magnesium, TSH were unremarkable. In this 64-year-old patient with hypertension and other vascular disease (CVA), I think it is reasonable to rule out ischemic etiology for his nonsustained ventricular tachycardia. We will proceed with coronary angiography to evaluate this further. Orders Orders: Left Heart Cath/COR/LV Percut Today 12 Lead EKG performed by BMS Today Prothrombin Time w/INR Today 2. Essential hypertension I10 Plan Continue present management. At next visit we will consider switching from ARB/diuretic to beta-gigi. Orders Orders: 12 Lead EKG performed by BMS Today 3. Asymmetric septal hypertrophy I42.2 Plan Detail Other Orders Orders: 12 Lead EKG performed by BMS Today G47.33, Z86.73 Partial Thromboplast Time Today I66.9 Follow Up 4 Weeks Coding Level of Care Code Off vis,new,level 4 Diagnoses NSVT (nonsustained ventricular tachycardia) I47.2 Essential hypertension I10 Asymmetric septal hypertrophy I42.2 Coding Level of Care Code Off vis,new,level 4 Diagnoses NSVT (nonsustained ventricular tachycardia) I47.2 Essential hypertension I10 Asymmetric septal hypertrophy I42.2 Supplemental Info Supplemental Information Labs LDL Cholesterol 75 mg/dL (0-130) 09/29/19 HDL Cholesterol 35 mg/dL (40-) L 09/29/19 Triglycerides 125 mg/dL (-199) 09/29/19 VLDL Cholesterol 25 mg/dL (5-40) 09/29/19 Diagnostics Electrocardiogram 11/20/19
--- NOTE | 2019-12-13 13:45 | EKG12_ITS ---
Test Reason : Blood Pressure : / mmHG Vent. Rate : 065 BPM Atrial Rate : 065 BPM P-R Int : 160 ms QRS Dur : 094 ms QT Int : 406 ms P-R-T Axes : 050 048 063 degrees QTc Int : 422 ms Normal sinus rhythm Normal ECG Confirmed by DAO GUPTA, ESTHER ([id number]), assignment desk editor KRISHNA PABLO ([id number]) on 12/17/2019 1:05:14 PM Referred By: Juju Multani Confirmed By:ESTHER DC MD
[2019-12-13] MEDS: 0.9% Normal Saline 1,000 ML 100 ML IV (14:15)
--- NOTE | 2019-12-13 14:21 | CRPHASE1_ITS ---
Patient Communication Former Patient:: Phase I - Previous PCI completed on 11/22/19 and Phase 1 CR teaching completed at theat time. PHII Cardiac Rehab Discussed with Patient:: Yes Guide to Cardiac Rehab Given to Patient:: Yes Cardiac Rehab Facility Choice List Given to Patient:: Yes Choice Program [facility] CR PHII:: Communication Given to CR Conservation Specialist:: Juju Multani Refer Phase II Cardiac Rehab:: Yes Sessions:: 36 sessions - 3 days/wk, 12 weeks Risk Factors/Lifestyle Family History: Family History (Last Reviewed 12/12/19 @ 08:[address] Joao Elliott, DO) Father Sudden cardiac Brother Sleep apnea Heart disease Cardiac Rehabilitation Info Cardiac Rehabilitation Program Information: Cardiac Rehabilitation is important for patients like you who are recovering from a heart problem. Cardiac rehabilitation programs are recognized as integral to the continued care of the patient with coronary heart disease. The cardiac rehabilitation program is designed to optimize a patient's physical, psychological, and social functioning. Health career technical counselor work in cardiac rehabilitation programs and assist you with getting the treatments you need to get stronger and healthier - like exercise, healthy eating habits, and medications. Cardiac rehabilitation has been show to help people with heart problems live longer and have better life enjoyment than people who do not go to cardiac rehabilitation. Please contact the Cardiac Rehabilitation Program at [facility] at in two weeks if you have not heard from them.
[2019-12-13] MEDS: TICAGRELOR 90 MG TABLET 180 MG PO (15:08)
[2019-12-13] MEDS: TICAGRELOR 90 MG TABLET PO (21:17)
[2019-12-13] MEDS: Carvedilol 6.25 MG Tablet PO (21:17)
[2019-12-13] MEDS: Atorvastatin Calcium 40 MG Tablet PO (21:17)
[2019-12-13] MEDS: traZODone 50 MG Tablet PO (21:17)
[2019-12-14 06:56] LABS: Hematocrit 47.5 % (40-54); Hemoglobin 14.5 g/dL (13.0-16.5); Mean Corp Hgb Conc 30.5 g/dL (32-36); Mean Corpuscular Hgb 26.9 pg (27.0-32.0); Mean Corpuscular Volume 88.1 fL (80-94); Mean Platelet Vol. 11.6 fl (6.2-12.0); Platelet Count 146 K/mm3 (150-450); RBC Distribution Width CV 12.6 % (11.6-14.6); RBC Distribution Width SD 40.5 fl (35.1-43.9); Red Blood Count 5.39 M/mm3 (4.6-6.2); White Blood Count 6.7 K/mm3 (4.4-11.0)
[2019-12-14 07:12] VITALS: PULSE 52
[2019-12-14 07:17] LABS: ALB/GLOB Ratio 0.9 RATIO (0.9-2.4); AST(SGOT) 10 U/L (15-37); Alanine Aminotransfer ALT/SGPT 16 U/L (16-61); Albumin, Serum 3.2 g/dL (3.2-5.0); Alkaline Phosphatase 59 U/L (45-117); Anion Gap 6 (5-15); BUN 15 mg/dL (7-18); BUN/Creat Ratio 17.5 RATIO (10-20); Calcium,Total 8.5 mg/dL (8.5-10.1); Chloride 111 mmol/L (98-107); Creatinine, Serum 0.86 mg/dL (0.70-1.30); EST Glomerular Filtration Rate 95 mL/min (>60); Est Glom Filt Rate - Afr Amer 115 mL/min (>60); Estimated Creatinine Clearance 87.24 ml/min; Globulin 3.4 g/dL (2.2-4.2); Glucose 86 mg/dL (74-106); Potassium 4.1 mmol/L (3.5-5.1); Protein, Total 6.6 g/dL (6.4-8.2); Sodium Level 142 mmol/L (136-145)
[2019-12-14 08:13] VITALS: O2SAT 94
[2019-12-14 09:50] VITALS: BP 149/79; PULSE 72; RESP 14; TEMP 36.6; O2SAT 96
[2019-12-14] MEDS: Aspirin 81 MG TAB.CHEW PO (09:54)
[2019-12-14] MEDS: Carvedilol 6.25 MG Tablet PO (09:54)
[2019-12-14] MEDS: Venlafaxine XR 75 MG Capsule PO (09:54)
[2019-12-14] MEDS: TICAGRELOR 90 MG TABLET PO (09:54)
--- NOTE | 2019-12-14 10:00 | EKG12_ITS ---
Test Reason : POST PCI Blood Pressure : / mmHG Vent. Rate : 053 BPM Atrial Rate : 053 BPM P-R Int : 176 ms QRS Dur : 082 ms QT Int : 426 ms P-R-T Axes : 018 046 067 degrees QTc Int : 399 ms Sinus bradycardia Otherwise normal ECG Confirmed by DAO GUPTA, ESTHER ([id number]), design editor KRISHNA PABLO ([id number]) on 12/17/2019 1:13:14 PM Referred By: Juju Multani Confirmed By:ESTHER DC MD
[2019-12-14 11:01] VITALS: PULSE 69
--- NOTE | 2019-12-14 11:54 | PCM.DC.CCA ---
Discharge Diet: Low fat/ Low Cholesterol Discharge Activity: Return to Normal Activity Lifting Restrictions: 10 pounds and also avoid any pushing or pulling for 3 days after your test. Call your doctor if your incision/area has: Continuous Slow Oozing, Sudden Increased Bleeding, Increased Pain/ Swelling, Increased Redness, Foul Smelling Discharge, Swelling at the incision site Call your doctor if you observe: Dizziness, Fainting spells, Chest pain Additional Dressing/Incision Instructions:: Keep the dressing (bandage) on until the next morning. You may then shower, but do not take a tub bath for 5 days after your test. It is normal to have some tenderness and discomfort at the puncture site. Sometimes bruising also occurs. However, if pain, numbness, or coldness occurs below the puncture site (in your leg, toes, arms or fingers) call your doctor at once. You may have a small, marble sized knot at the puncture site. This is normal. Do not rub it. It will go away in 4-6 weeks. Bleeding can occur from the area where the puncture was done. Blood may spurt or drip from the site. If blood spurts, apply pressure right away to stop bleeding and call 911. Although rare, bleeding into the tissue (hematoma) can also occur. If this happens, a large, firm area goose egg under the skin will appear. If any of these occur, lie down as flat as you can and have someone apply firm pressure to the cath site with a gauze pad or a clean washcloth for 10-15 minutes. Call 911 or go to the Emergency Department. Allergies/Adverse Reactions: Allergies No Known Allergies Allergy (Verified 12/12/19 08:40) Medications to take at Discharge Aspirin [Aspirin, Baby] 81 mg PO DAILY@0800 09/28/19 atorvastatin 40 mg tablet 40 mg PO QHS #90 tab 11/15/19 trazodone 50 mg tablet 50 mg PO QHS #90 tab 11/15/19 venlafaxine 75 mg capsule,extended release 24 hr 75 mg PO DAILY #90 cap 11/15/19 Carvedilol [Coreg (Beta Ashley)] 6.25 mg PO BID #180 tab 11/23/19 Ticagrelor [Brilinta] 90 mg PO BID #60 tab 12/14/19 The following prescriptions were given: Ticagrelor [Brilinta] 90 mg PO BID #60 tab Transmission Status: Pending to [id number] [facility] Primary Care Physician: Joao Elliott DO [Primary Care Provider] - Test Results: Test results from this visit will be discussed in further detail at your follow-up appointment, if applicable. Please Follow Up With: Juju Multani MD - 2-4 weeks Cardiac Rehabilitation Info Cardiac Rehabilitation Program Information: Cardiac Rehabilitation is important for patients like you who are recovering from a heart problem. Cardiac rehabilitation programs are recognized as integral to the continued care of the patient with coronary heart disease. The cardiac rehabilitation program is designed to optimize a patient's physical, psychological, and social functioning. Health progressive care unit registered nurse work in cardiac rehabilitation programs and assist you with getting the treatments you need to get stronger and healthier - like exercise, healthy eating habits, and medications. Cardiac rehabilitation has been show to help people with heart problems live longer and have better life enjoyment than people who do not go to cardiac rehabilitation. Please contact the Cardiac Rehabilitation Program at [facility] at in two weeks if you have not heard from them.
--- NOTE | 2019-12-20 11:01 | CL.I_ITS ---
Patient Name: AMANDA DAVID Study Date: 12/13/2019 Performing: Naun Multani MD Ht: 70 inches 178 cm : 1955 Wt: 256.1 lbs 116 kg Age: 64 Gender: male BSA: 2.32 PROCEDURE(S) PERFORMED [id number] W OR WO PTCA, SINGLE CORONARY ARTERY [id number] W OR WO PTCA, EACH ADD'L ARTERY, SAME MAJOR CLINICAL PROFILE AND CO-MORBIDITIES Indications: V tach, staged PCI of RCA Heart Failure: None Stress/Imaging Stress/Image Study Performed: No CAD Presentations: Other: V tach CONCLUSIONS Successful PCI with BRYCE to ostial RPl, proximal, mid and distal RCA RECOMMENDATIONS DESCRIPTION OF PROCEDURE The patient arrived to the procedure lab. The risks and benefits of the procedure as well as a full d escription of our services here and current unavailability of surgical backup were fully explained to the patient and/or their significant other prior to the catheterization. The Timeout was completed, verifying the correct patient and procedure. The patient's procedural site was prepped and draped in the usual fashion. Local anesthetic was given subcutaneously to right radial region with Lidocaine 2% . Using a modified Seldinger technique, arterial access was obtained via the right radial artery, a 6 Fr sheath was inserted.. Right Coronary Artery selective angiography was then performed in multiple v iews using a 5 Fr. JR 4 guide catheter bmw Guide wire was advanced to the RPL. jr 4 Guide catheter was inserted and engaged into the RCA . nc emerge 2.00 x 8 Balloon catheter was advanced across lesion in the ostial RPL PTCA balloon inf lated at 12 atms for 14 secs. PTCA balloon inflated at 12 atms for 15 secs. Angiogram performed post balloon dilatation. synergy 2.25 x 8 Drug Eluting stent was advanced across the lesion in the rpl br anch ostial Angiogram performed post stent deployment. nc emerge 2.5 x 20 Balloon catheter was advanc ed across lesion in the right coronary, distal. nc emerge 2.50 x 20 Balloon catheter was advanced acr oss lesion in the right coronary, distal. PTCA balloon inflated at 12 atms for 12 secs. Synergy 3.00x 12 Drug Eluting stent was inserted. Angiogram performed post stent deployment. Synergy 4.00x16 Drug E luting stent was inserted. Angiogram performed post stent deployment. NC Emerge 3.50x8 Balloon cathet er was inserted. Angiogram performed post balloon dilatation. NC Emerge 2.50x20 Balloon catheter was inserted. Angiogram performed post balloon dilatation. The arterial sheath was pulled a nd a TR Band was applied for hemostasis w/ 13ml air INTERVENTION INFORMATION LESION SITE: ostial RPL Lesion Complexity: High/C, chronic total occlusion: No, lesion at bifurcation: Yes, thrombus present: No, lesion length: 7 mm, culprit lesion: Yes, Previously treated lesion: No Pre Stenosis: 90 % Pre intervention JUANA flow: 3 PROCEDURE: Drug Eluting Stent with pre dilatation. Post Stenosis: 0 % Post intervention JUANA flow: 3 Lesion Devices: Medtronic 6 Fr JR4.0 100cm Guide Catheter Young .014 [employer] [place] Straight 190cm [employer] 6 [place] GuideLiner Hardik Sci NC EMERGE MR 2.00x08 BALLOON Hardik Sci Synergy MR BRYCE 2.25x38 Hardik Sci NC EMERGE MR 2.50x20 BALLOON LESION SITE: RCA (Distal) Lesion Complexity: High/C, chronic total occlusion: No, lesion at bifurcation: Yes, thrombus present: No, lesion length: 18 mm, culprit lesion: Yes, Previously treated lesion: No Pre Stenosis: 70 % Pre intervention JUANA flow: 3 PROCEDURE: Drug Eluting Stent with pre and post dilatation Post Stenosis: 0 % Post intervention JUANA flow: 3 Lesion Devices: Medtronic 6 Fr JR4.0 100cm Guide Catheter Young .014 [employer] [place] Straight 190cm Hardik Sci NC EMERGE MR 2.50x20 BALLOON LESION SITE: RCA (Mid) Lesion Complexity: High/C, chronic total occlusion: No, lesion at bifurcation: No, thrombus present: No, lesion length: 11 mm, culprit lesion: Yes, Previously treated lesion: No Pre Stenosis: 70 % Pre intervention JUANA flow: 3 PROCEDURE: Drug Eluting Stent with pre dilatation. Post Stenosis: 0 % Post intervention JUANA flow: 3 Lesion Devices: Medtronic 6 Fr JR4.0 100cm Guide Catheter Young .014 [employer] [place] Straight 190cm Hardik Sci Synergy MR BRYCE 3.00x12 Hardik Sci NC EMERGE MR 3.50x08 BALLOON LESION SITE: RCA (Proximal) Lesion Complexity: High/C, chronic total occlusion: No, lesion at bifurcation: No, thrombus present: No, lesion length: 11 mm, culprit lesion: Yes, Previously treated lesion: No Pre Stenosis: 70 % Pre intervention JUANA flow: 3 PROCEDURE: Drug Eluting Stent Post Stenosis: 0 % Post intervention JUANA flow: 3 Lesion Devices: Medtronic 6 Fr JR4.0 100cm Guide Catheter Young .014 [employer] [place] Straight 190cm Hardik Sci Synergy MR BRYCE 4.00x16 COMPLICATIONS No Complications PROCEDURE MEDICATIONS Versed 1 mg IV Fentanyl 50 mcg IV Oxygen: 2 L/min via nasal cannula Heparin 5000 unit(s) IV 12/13/2019 12:49:58 Heparin given IA 12/13/2019 12:50:40 Verapamil 2.5mg, Ntg 100mcgs, 3000 units of Heparin given IA 12/13/2019 12:50:40 SUMMARY OF HEMODYNAMIC DATA Time AIR REST ECG 10:17:46 AO 123/74 (93) SA 12:52:20 Signed By Naun Multani MD On 12/20/2019 11:00:19 AM Naun Multani MD
== END 2019-12-14 12:26 | disposition home or self-care (01) ==
LOC: CLSP 10:02 → PCU 12-17 11:06
PROVIDERS: PCP Family Medicine; Referring Provider Specialist; Visit Provider Specialist
DX: I25.10 Atherosclerotic heart disease of native coronary artery without angina pectoris (principal); I47.2 Ventricular tachycardia; I42.2 Other hypertrophic cardiomyopathy; I10 Essential (primary) hypertension; Z79.82 Long term (current) use of aspirin; Z79.02 Long term (current) use of antithrombotics/antiplatelets; Z87.891 Personal history of nicotine dependence; Z86.73 Personal history of transient ischemic attack (TIA), and cerebral infarction without residual deficits
CPT/HCPCS: 36415; 80053; 85027; 92928; 92929; 93005; 99152; 99153; J7030; J7040; Q9967; C1725; C1769; C1874; C1887; C1894; C9600; C9601

== ENCOUNTER 2020-01-15 11:00 | Outpatient (RCR) | payer MEDICARE, SELFPAY ==
--- NOTE | 2019-10-24 15:21 | HP.SP.AD_ITS ---
History - History Date of Eval: 10/24/19 Medical Diagnosis (from RX): CVA Date of Onset of Diagnosis: 09/19/19 Previous speech therapy: Yes Results: Great progress. Other Relevant Medical History/Diagnoses/Surgery: Osteoarthritis (Chronic). Obstructive sleep apnea (Chronic). has a CPAP unit but, unable to tolerate due to sinus pain and nasal congestion. Restless leg syndrome (Chronic). likely due to untreated MAGALIS. Diverticulosis (Chronic). has also had diverticulitis. 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 (Chronic). History of rheumatic fever as a child (Chronic). Grade I diastolic dysfunction (Chronic). Asymmetric septal hypertrophy (Chronic). Aortic stenosis, mild (Chronic). with mild MR. Eczema (Chronic). History of ankle fusion (Chronic). History of cardiac radiofrequency ablation (Chronic). Rheumatoid arthritis (Chronic). seronegative. Hypertension (Chronic) Smoking Status: Light Smoker (<10/day) Hx Smoking: Yes Hx Smoking Cessation Date: 02/22/16 Hx Tobacco Use: No Hx Smoking Exposure: Yes - Pain Is pain an issue with your current prescribed condition?: No - Personal Occupation: Retired - Right Hearing Abillity: Normal Left Hearing Abillity: Normal Visual Assistive Devices: Contacts Patients Living Arrangements: With Significant Other Patient Allergies - Allergies Allergies No Known Allergies Allergy (Verified 09/13/19 13:33) Subjective Dysphagia - Current Diet Solids Current Diet: Regular - Current Diet Liquids Current Liquids: Thin CLQT - CLQT CLQT Administered: Yes CLQT: Cognitive Linguistic Quick Test (CLQT) is a criterion - referenced assessment designed for adults between the ages of 18 and 89 with known or suspected neurological dysfuntions. The CLQT is to assess strength and weaknesses in five cognitive domains. Severity ratings are within normal limits, mild, moderate, severe deficits. The subtests are as follows: Date: 10/24/19 - Attention Attention: Mild - Memory Memory: Mild - Executive Functions Executive Functions: Moderate - Language Language: WNL - Visuospatial Skills Visuospatial Skills: Mild - CLQT Comments Comments Joaquin had the most difficulty with executive functions as he demonstrated breakdown in planning and self monitoring as well as mental flexability. He lacks the ability to create solutions to problem solving. He also has deficits in recall skills. He lacked specific recall of details as well as lacks general memory skills ( He retired several years ago and forgets that he retired). Plan - Plan Plan: Speech therapy is warranted for deficits in memory as well as executive functional skills. - Frequency Frequency: 1x/Week Duration: 2 Months Visits in this POC: 8 - Prognosis Prognosis: Good - Goal #1-5 Goal #1: Joaquin will complete judgement,recall, planning and executive function tasks on 4/5 trials on 2/3 conscutive sessions. Goal #2: Joaquin will particiapte medication mangement and money management eval uation. Education - Patient has Indicated that the Following Identified Educational Needs: Cognitively Impaired - Patient Instruction Patient Education: Diagnosis, Treatment Plan, Goals Person Taught: Patient, Family Teaching Method: Discussion
--- NOTE | 2019-12-04 11:51 | HP.SP.ADRE ---
Previous/Current Goals - Goals 1-5 Previous Goal #1: Joaquin will complete judgement,recall, planning and executive function tasks on 4/5 trials on 2/3 conscutive sessions. Goal 1 Status: Pt completed critical thinking questions based on single sentences with 100% accuracy indep (8/8). Critical thinking questions based on short paragraphs required min-mod cues for accuracy. Completed deduction puzzle with requiring increased cueing, with pt jumping to conclusions and demonstrating overall mild-moderately impaired organization. Patient accuracy for inerences ranging from 30%- 70% Previous Goal #2: Joaquin will particiapte medication mangement and money management evaluation. Goal 2 Status: Patient was able to manage medications with the demonstration during therapy for multiple medications. He reported that he is now completing these at home with his present to verfiy if correct. Money management was completed with the use of a checkbook register. One minor error in writing number but he attributed that to vision as he is having blurry History - History Date of Eval: 10/24/19 Medical Diagnosis (from RX): CVA Date of Onset of Diagnosis: 09/19/19 Previous speech therapy: Yes Results: Great progress. Other Relevant Medical History/Diagnoses/Surgery: Osteoarthritis (Chronic). Obstructive sleep apnea (Chronic). has a CPAP unit but, unable to tolerate due to sinus pain and nasal congestion. Restless leg syndrome (Chronic). likely due to untreated MAGALIS. Diverticulosis (Chronic). has also had diverticulitis. 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 (Chronic). History of rheumatic fever as a child (Chronic). Grade I diastolic dysfunction (Chronic). Asymmetric septal hypertrophy (Chronic). Aortic stenosis, mild (Chronic). with mild MR. Eczema (Chronic). History of ankle fusion (Chronic). History of cardiac radiofrequency ablation (Chronic). Rheumatoid arthritis (Chronic). seronegative. Hypertension (Chronic) Smoking Status: Former smoker Hx Smoking: Yes Hx Smoking Cessation Date: 02/22/16 Hx Tobacco Use: No Hx Smoking Exposure: Yes - Pain Is pain an issue with your current prescribed condition?: No - Personal Occupation: Retired - Right Hearing Abillity: Normal Left Hearing Abillity: Normal Visual Assistive Devices: Contacts Patients Living Arrangements: With Significant Other Patient Allergies - Allergies Allergies No Known Allergies Allergy (Verified 11/21/19 10:11) Subjective Dysphagia - Current Diet Solids Current Diet: Regular - Current Diet Liquids Current Liquids: Thin CLQT - CLQT CLQT Administered: Yes CLQT: Cognitive Linguistic Quick Test (CLQT) is a criterion - referenced assessment designed for adults between the ages of 18 and 89 with known or suspected neurological dysfuntions. The CLQT is to assess strength and weaknesses in five cognitive domains. Severity ratings are within normal limits, mild, moderate, severe deficits. The subtests are as follows: Date: 12/04/19 - Attention Attention: Mild - Memory Memory: Mild - Executive Functions Executive Functions: Mild - Language Language: WNL - Visuospatial Skills Visuospatial Skills: Mild - CLQT Comments Comments Pt was better able to follow directions today for subtests. He increased his executive functions score from moderate to mild. Visuospatial score may be impacted by blurry vision that patient reports especially for right eye. Short term memory is a deficit as he often repeats the same comment multiple times during therapy. It is also demonstrated in his ability to recall specific details when presented with verbal material. He reported having to re-read a paragraph to fully retain information. Complex material remains difficult for the patient. CLQT Re-Eval - Testing Results CLQT Test Comparison: Previous scores: Attention - mild, Memory - mild, executive functions - moderate, Language - WNL and visuospatial skills mild. Plan - Plan Plan: Speech therapy is warranted for cognitive deficits resulting in high level executive function deficits for judgement, planning, organization as well as recall deficits. - Recommendations Treatment Warranted: Yes - Frequency Frequency: 1x/Week Duration: 2 Months Visits in this POC: 8 - Prognosis Prognosis: Good - Goals that are Established: Determination:: Goals will be added/modified as deemed necessary and appropriate. Therapy will be discontinued when results of re-evaluation indicate therapy is no longer needed or lack of progress has been documented. - Goal #1-5 Goal #1: Joaquin will complete judgement,recall, planning and executive function tasks on 4/5 trials on 2/3 conscutive sessions. Goal #2: Joaquin will complete recall activities with the use of recall strategies on 4/5 trials on 2/3 sessions with minimal cues.
--- NOTE | 2020-01-23 15:26 | HP.SP.DC ---
ST Discharge Summary - Discharged: Discharge: Joaquin Solares is discharged from speech therapy at [facility] as of 01-15-2020 as speech therapy is no longer warranted. 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 Initially his main areas of deficits were executive functions and recall. Initially his testing revealed moderate executive function deficits and mild memory deficits. Testing at time of discharge had all scores within normal limits on CLQT. He was able to demonstrate WNL problem solving, judgement and reasoning. He had mild deficits in recall of conversational topics as he still repeated himself during conversation, however, when given details he was able to recall them. He was not missing appointments or forgetting tasks. His reported that he was completing more home projects as well. Neurology cleared him to begin to drive. A copy of this discharge summary will be sent to his referring physician.
== END 2020-01-15 19:00 | disposition home or self-care (01) ==
LOC: SP 11:00
PROVIDERS: PCP Family Medicine; Referring Provider Family Medicine Geriatric Medicine; Visit Provider Family Medicine Geriatric Medicine
DX: Z86.73 Personal history of transient ischemic attack (TIA), and cerebral infarction without residual deficits (principal)
CPT/HCPCS: 92507; 92523

== ENCOUNTER → 2020-03-12 09:25 | Outpatient (CLI) | payer MEDICARE, SELFPAY ==
[2020-03-12 09:25] VITALS: BMI 36.5
[2020-03-12 12:27] LABS: AST(SGOT) 10 U/L (15-37); Alanine Aminotransfer ALT/SGPT 25 U/L (16-61); Albumin, Serum 3.4 g/dL (3.2-5.0); Alkaline Phosphatase 65 U/L (45-117); Bilirubin, Direct 0.16 mg/dL (0.00-0.30); Cholesterol 123 mg/dL (200); Globulin 3.7 g/dL (2.2-4.2); High Density Lipoprotein 46 mg/dL; Protein, Total 7.1 g/dL (6.4-8.2); Triglycerides 114 mg/dL; Very Low Density Lipoprotein 23 mg/dL (5-40)
[2020-03-12 12:42] LABS: Absolute Lymphocyte Count 1.42 X10^3/uL (0.83-4.51); Basophil# 0.04 X10^3/uL; Basophil% 0.5 % (0-1); Eosinophils% 1.2 % (0-5); Hematocrit 48.9 % (40-54); Hemoglobin 15.2 g/dL (13.0-16.5); Lymphocyte # 1.42 X10^3/ul (4.0); Lymphocyte % 17.5 % (19-41); Mean Corp Hgb Conc 31.1 g/dL (32-36); Mean Corpuscular Hgb 26.4 pg (27.0-32.0); Mean Platelet Vol. 11.4 fl (6.2-12.0); Monocyte# 0.57 X10^3/uL; NRBC Flagged by Analyzer 0 % (0-5); Neutrophil # 5.97 X10^3/uL (2.7-7.7); Neutrophil % 73.6 % (47-70); Platelet Count 181 K/mm3 (150-450); RBC Distribution Width CV 14.2 % (11.6-14.6); RBC Distribution Width SD 44.1 fl (35.1-43.9); Red Blood Count 5.75 M/mm3 (4.6-6.2); White Blood Count 8.1 K/mm3 (4.4-11.0)
[2020-03-12 12:52] LABS: Thyroid Stim Hormone (TSH) 1.13 uIU/mL (0.358-3.74)
== END ==
PROVIDERS: Nurse Practitioner Family; PCP Family Medicine; Referring Provider Family Medicine; Visit Provider Family Medicine
DX: I25.10 Atherosclerotic heart disease of native coronary artery without angina pectoris (principal); I10 Essential (primary) hypertension; E78.5 Hyperlipidemia, unspecified; Z95.5 Presence of coronary angioplasty implant and graft
CPT/HCPCS: 36415; 80061; 80076; 84443; 85025

== ENCOUNTER → 2020-04-10 | Outpatient (CLI) | payer MEDICARE, SELFPAY ==
[2020-04-09 15:54] VITALS: BMI 37.5
== END | disposition home or self-care (01) ==
LOC: LABSPEC 11:06
PROVIDERS: PCP Family Medicine; Referring Provider Nurse Practitioner Family; Visit Provider Nurse Practitioner Family
DX: R19.7 Diarrhea, unspecified (principal); Z86.16 Personal history of COVID-19
CPT/HCPCS: 87635; U0005; U0002; U0003

== ENCOUNTER → 2020-04-11 | Outpatient (CLI) | payer MEDICARE, SELFPAY ==
[2020-04-09 15:54] VITALS: BMI 37.5
== END | disposition home or self-care (01) ==
LOC: LABSPEC 08:46
PROVIDERS: PCP Family Medicine; Referring Provider Nurse Practitioner Family; Visit Provider Nurse Practitioner Family
DX: R19.7 Diarrhea, unspecified (principal); Z86.19 Personal history of other infectious and parasitic diseases
CPT/HCPCS: 83630; 87177; 87209; 87493; 87506

== ENCOUNTER 2020-05-01 12:00 | Outpatient (RCR) | payer MEDICARE, SELFPAY ==
[2020-04-21 09:20] VITALS: BMI 37.3
[2020-05-01] MEDS: COVID-19 VACC, MRNA(PFIZER)/PF 30 MCG/0.3 ML SYRINGE IM (10:03)
[2020-05-02 10:19] VITALS: BMI 37.8
[2020-05-22] MEDS: COVID-19 VACC, MRNA(PFIZER)/PF 30 MCG/0.3 ML SYRINGE IM (09:57)
== END 2020-07-29 23:59 ==
LOC: IMMUN 12:00
PROVIDERS: PCP Family Medicine; Visit Provider Family Medicine
DX: Z23 Encounter for immunization (principal)
CPT/HCPCS: 0001A; 0002A; 91300

== ENCOUNTER → 2020-09-09 09:43 | Outpatient (CLI) | payer MEDICARE, SELFPAY ==
[2020-09-09 09:09] VITALS: BMI 38.5
[2020-09-09 12:53] LABS: ALB/GLOB Ratio 1.1 RATIO (0.9-2.4); AST(SGOT) 16 U/L (15-37); Alanine Aminotransfer ALT/SGPT 28 U/L (16-61); Albumin, Serum 3.8 g/dL (3.2-5.0); Alkaline Phosphatase 61 U/L (45-117); Anion Gap 6 (5-15); BUN 17 mg/dL (7-18); BUN/Creat Ratio 20.8 RATIO (10-20); Calcium,Total 8.7 mg/dL (8.5-10.1); Chloride 107 mmol/L (98-107); Cholesterol 140 mg/dL (200); Creatinine, Serum 0.82 mg/dL (0.70-1.30); EST Glomerular Filtration Rate 100 mL/min (>60); Est Glom Filt Rate - Afr Amer 121 mL/min (>60); Globulin 3.6 g/dL (2.2-4.2); Glucose 94 mg/dL (74-106); High Density Lipoprotein 34 mg/dL; Potassium 4.4 mmol/L (3.5-5.1); Protein, Total 7.4 g/dL (6.4-8.2); Sodium Level 140 mmol/L (136-145); Triglycerides 101 mg/dL; Very Low Density Lipoprotein 20 mg/dL (5-40)
[2020-09-09 13:05] LABS: Hemoglobin A1c 5.5 % (3.8-5.6)
== END ==
PROVIDERS: PCP Family Medicine; Referring Provider Family Medicine; Visit Provider Family Medicine
DX: I10 Essential (primary) hypertension (principal); Z95.5 Presence of coronary angioplasty implant and graft; R73.9 Hyperglycemia, unspecified
CPT/HCPCS: 36415; 80053; 80061; 83036

== ENCOUNTER 2021-03-11 08:53 | Outpatient (CLI) | payer MEDICARE, SELFPAY ==
[2021-03-11 12:36] LABS: ALB/GLOB Ratio 0.9 RATIO (0.9-2.4); AST(SGOT) 14 U/L (15-37); Alanine Aminotransfer ALT/SGPT 22 U/L (16-61); Albumin, Serum 3.5 g/dL (3.2-5.0); Alkaline Phosphatase 48 U/L (45-117); Anion Gap 7 (5-15); BUN 16 mg/dL (7-18); BUN/Creat Ratio 19.5 RATIO (10-20); Calcium,Total 9.2 mg/dL (8.5-10.1); Chloride 108 mmol/L (98-107); Cholesterol 154 mg/dL (200); Creatinine, Serum 0.82 mg/dL (0.70-1.30); EST Glomerular Filtration Rate 99 mL/min (>60); Est Glom Filt Rate - Afr Amer 120 mL/min (>60); Globulin 3.8 g/dL (2.2-4.2); Glucose 103 mg/dL (74-106); High Density Lipoprotein 44 mg/dL; Potassium 4.5 mmol/L (3.5-5.1); Protein, Total 7.3 g/dL (6.4-8.2); Sodium Level 141 mmol/L (136-145); Triglycerides 105 mg/dL; Very Low Density Lipoprotein 21 mg/dL (5-40)
== END 2021-03-11 23:59 | disposition short-term general hospital (02) ==
LOC: BIMLAB 08:54
PROVIDERS: PCP Family Medicine; Referring Provider Family Medicine; Visit Provider Family Medicine
DX: I25.10 Atherosclerotic heart disease of native coronary artery without angina pectoris (principal); I66.9 Occlusion and stenosis of unspecified cerebral artery
CPT/HCPCS: 36415; 80053; 80061

== ENCOUNTER → 2021-09-04 | Outpatient (CLI) | payer MEDICARE, SELFPAY ==
--- NOTE | 2021-09-04 10:51 | ECHOD_ITS ---
Version 2 Reason For Study: Murmur Procedure This was a 2D Doppler, Color Flow transthoracic echocardiogram. Exam performed in department. Left Ventricle Normal LV size. Left ventricular systolic function is normal. The estimated ejection fraction is 60 %. No regional wall motion abnormalities noted. Right Ventricle Normal RV size. Normal systolic function. Atria Normal left atrium. Normal right atrium. Mitral Valve Normal mitral valve. Tricuspid Valve Normal tricuspid valve. Mild tricuspid valve insufficiency. Pulmonary artery systolic pressure is 24 mmHg. Aortic Valve Trisinus/trileaflet aortic valve. Mild focal aortic valve calcification. Peak aortic valve gradient 22 mmHg. Mean aortic valve gradient 13 mmHg. Mild aortic stenosis. Pulmonic Valve Normal pulmonic valve. Great Vessels Normal aortic root. The pulmonary artery is normal size. Normal inferior vena cava. Pericardium/Pleural No pericardial effusion. MMode/2D Measurements & Calculations LVIDd: 4.8 cm IVSd: 1.2 cm LVOT diam: 2.1 cm LVIDs: 3.7 cm LVPWd: 1.1 cm LVOT area: 3.5 cm2 RVDd: 4.2 cm FS: 22.2 % Ao root diam: 3.9 cm LAV(MOD-bp): 50.4 ml Aortic Valve Planimetry: 1.4 cm2 LA dimension: 4.4 cm LAV(MOD-bp) Indexed: 22.3 ml/m2 LAV(MOD-sp2): 51.6 ml LAV(MOD-sp4): 49.2 ml LA A4 area: 19.2 cm2 RA A4 area: 14.4 cm2 Time Measurements MV dec time: 0.24 sec Doppler Measurements & Calculations MV E max sean: 103.3 cm/sec MV V2 max: 121.7 cm/sec MV dec slope: 435.8 cm/sec2 MV A max sean: 92.6 cm/sec MV max P.9 mmHg MV E/A: 1.1 MV V2 mean: 63.4 cm/sec MV mean P.0 mmHg MV V2 VTI: 46.2 cm MVA(VTI): 2.0 cm2 Ao V2 max: 234.1 cm/sec LV V1 max: 102.9 cm/sec SV(LVOT): 92.3 ml Ao max P.0 mmHg LV V1 max P.2 mmHg Ao V2 mean: 166.4 cm/sec LV V1 mean P.4 mmHg Ao mean P.5 mmHg LV V1 mean: 72.8 cm/sec Ao V2 VTI: 56.8 cm LV V1 VTI: 26.3 cm OVIDIO(I,D): 1.6 cm2 OVIDIO(V,D): 1.5 cm2 PA V2 max: 92.8 cm/sec TR max sean: 231.1 cm/sec MV P1/2t-pr_phl: 109.5 msec TR max P.4 mmHg ECHO/Echo Complete Interpretation Summary Normal LV size. Left ventricular systolic function is normal. Mild aortic stenosis. The estimated ejection fraction is 60 %. Mean aortic valve gradient 13 mmHg. Ordering Physician: Dashawn Rubin Referring Physician: Joao Elliott Performed By: Reyes Nielsen RCS
== END | disposition home or self-care (01) ==
LOC: CVS 10:49
PROVIDERS: PCP Family Medicine; Referring Provider Internal Medicine Cardiovascular Disease; Visit Provider Internal Medicine Cardiovascular Disease
DX: R01.1 Cardiac murmur, unspecified (principal); Z86.73 Personal history of transient ischemic attack (TIA), and cerebral infarction without residual deficits
CPT/HCPCS: 93306

== ENCOUNTER → 2022-01-11 | Outpatient (CLI) | payer MEDICARE, SELFPAY ==
[2022-01-11 17:13] LABS: ALB/GLOB Ratio 0.9 RATIO (0.9-2.4); AST(SGOT) 22 U/L (15-37); Alanine Aminotransfer ALT/SGPT 20 U/L (16-61); Albumin, Serum 3.6 g/dL (3.2-5.0); Alkaline Phosphatase 49 U/L (45-117); Anion Gap 6 (5-15); BUN 29 mg/dL (7-18); BUN/Creat Ratio 32.8 RATIO (10-20); Calcium,Total 9.3 mg/dL (8.5-10.1); Chloride 109 mmol/L (98-107); Cholesterol 164 mg/dL (200); Creatinine, Serum 0.88 mg/dL (0.70-1.30); EST Glomerular Filtration Rate 91 mL/min (>60); Est Glom Filt Rate - Afr Amer 110 mL/min (>60); Globulin 3.8 g/dL (2.2-4.2); Glucose 100 mg/dL (74-106); High Density Lipoprotein 39 mg/dL; Potassium 4.9 mmol/L (3.5-5.1); Protein, Total 7.4 g/dL (6.4-8.2); Sodium Level 138 mmol/L (136-145); Triglycerides 300 mg/dL; Very Low Density Lipoprotein 60 mg/dL (5-40)
== END | disposition home or self-care (01) ==
LOC: BIMLAB 16:00
PROVIDERS: PCP Family Medicine; Visit Provider Family Medicine
DX: I66.9 Occlusion and stenosis of unspecified cerebral artery (principal); Z95.5 Presence of coronary angioplasty implant and graft
CPT/HCPCS: 36415; 80053; 80061

== ENCOUNTER → 2022-09-08 | Outpatient (CLI) | payer MEDICARE, SELFPAY ==
[2022-09-08 11:41] LABS: Anion Gap 5 (5-15); BUN 27 mg/dL (7-18); BUN/Creat Ratio 27.1 RATIO (10-20); Chloride 102 mmol/L (98-107); EST Glomerular Filtration Rate 79 mL/min (>60); Est Glom Filt Rate - Afr Amer 96 mL/min (>60); Glucose 123 mg/dL (74-106); Sodium Level 136 mmol/L (136-145)
== END | disposition home or self-care (01) ==
LOC: LAB 09:56
PROVIDERS: PCP Family Medicine; Referring Provider Physician Assistant Medical; Visit Provider Physician Assistant Medical
DX: Z51.81 Encounter for therapeutic drug level monitoring (principal); Z79.899 Other long term (current) drug therapy
CPT/HCPCS: 36415; 80048

== ENCOUNTER → 2023-05-19 | Outpatient (CLI) | payer MEDICARE, SELFPAY ==
--- NOTE | 2023-05-19 07:48 | ECHOD_ITS ---
Reason For Study: TIA Procedure This was a 2D Doppler, Color Flow transthoracic echocardiogram. Exam performed in department. Left Ventricle Normal LV size. The left ventricular ejection fraction is 55 %. No regional wall motion abnormalities noted. Right Ventricle Normal RV size. Normal systolic function. Atria The left atrium is mildly enlarged. Normal right atrium. Mitral Valve Mild focal mitral valve thickening. Mild (1+) eccentric mitral valve insufficiency. Tricuspid Valve Normal tricuspid valve. Mild (1+) tricuspid valve insufficiency. Pulmonary artery systolic pressure is 26 mmHg. Aortic Valve Trisinus/trileaflet aortic valve. Moderate focal aortic valve calcification. Peak aortic valve gradient 27 mmHg. Mean aortic valve gradient 14 mmHg. Mild aortic stenosis. Pulmonic Valve Normal pulmonic valve. Great Vessels Normal aortic root. The pulmonary artery is normal size. Inferior vena cava collapse with respiration. Pericardium/Pleural No pericardial effusion. MMode/2D Measurements & Calculations LVIDd: 3.7 cm IVSd: 1.1 cm LVOT diam: 2.1 cm LVIDs: 2.4 cm LVPWd: 1.2 cm LVOT area: 3.4 cm2 RVDd: 3.4 cm FS: 35.0 % Ao root diam: 3.6 cm LAV(MOD-bp): 79.5 ml LVAd ap4: 30.1 cm2 LAV(MOD-bp) Indexed: 34.2 ml/m2 LVLd ap4: 8.2 cm LAV(MOD-sp2): 79.9 ml EDV(MOD-sp4): 89.9 ml LAV(MOD-sp4): 79.9 ml EDV(sp4-el): 94.2 ml LVAs ap4: 16.9 cm2 LVLs ap4: 6.5 cm ESV(MOD-sp4): 36.5 ml ESV(sp4-el): 37.2 ml EF(MOD-sp4): 59.4 % EF(sp4-el): 60.5 % LVAd ap2: 31.5 cm2 SV(MOD-sp4): 53.3 ml SV(MOD-sp2): 59.6 ml LVLd ap2: 8.9 cm EDV(MOD-sp2): 93.6 ml EDV(sp2-el): 94.5 ml LVAs ap2: 16.7 cm2 LVLs ap2: 7.3 cm ESV(MOD-sp2): 33.9 ml ESV(sp2-el): 32.1 ml EF(MOD-sp2): 63.7 % SV(sp4-el): 57.0 ml LA dimension(2D): 5.4 cm LA A4 area: 23.3 cm2 RA A4 area: 18.1 cm2 TAPSE: 2.7 cm Time Measurements MV dec time: 0.27 sec Doppler Measurements & Calculations MV E max bossman: 109.3 cm/sec Lat Peak E' Bossman: 11.4 cm/sec Med Peak E' Bossman: 6.4 cm/sec MV A max bossman: 94.1 cm/sec E/E' lat: 9.6 E/E' med: 17.1 MV E/A: 1.2 MV V2 max: 145.9 cm/sec MV P1/2t max bossman: 131.6 cm/sec Ao V2 max: 261.4 cm/sec MV max P.5 mmHg MV P1/2t: 91.8 msec Ao max P.6 mmHg MV V2 mean: 71.8 cm/sec Ao V2 mean: 176.2 cm/sec MV mean P.6 mmHg MV dec slope: 419.8 cm/sec2 Ao mean P.9 mmHg MV V2 VTI: 49.2 cm MVA(P1/2t): 2.4 cm2 Ao V2 VTI: 61.5 cm AV (velocity ratio): 0.43 MVA(VTI): 1.8 cm2 OVIDIO(I,D): 1.4 cm2 OVIDIO(V,D): 1.4 cm2 LV V1 max: 107.5 cm/sec SV(LVOT): 89.1 ml PA V2 max: 75.3 cm/sec LV V1 max P.5 mmHg PA V2 mean: 59.5 cm/sec LV V1 mean P.5 mmHg LV V1 mean: 74.9 cm/sec LV V1 VTI: 26.3 cm TR max bossman: 235.9 cm/sec TR max P.3 mmHg ECHO/Echo Complete Interpretation Summary The left ventricular ejection fraction is 55 %. Normal LV size. The left atrium is mildly enlarged. Mean aortic valve gradient 14 mmHg. Mild aortic stenosis. Pulmonary artery systolic pressure is 26 mmHg. Ordering Physician: Violeta Gray Referring Physician: Joao Elliott Performed By: Stephanie Maldonado, MIRNA, RVT
== END | disposition home or self-care (01) ==
PROVIDERS: PCP Family Medicine; Referring Provider Physician Assistant Medical; Visit Provider Physician Assistant Medical
DX: R01.1 Cardiac murmur, unspecified (principal); Z86.73 Personal history of transient ischemic attack (TIA), and cerebral infarction without residual deficits
CPT/HCPCS: 93306

== ENCOUNTER → 2023-11-11 | Outpatient (CLI) | payer MEDICARE, SELFPAY ==
[2023-11-11 12:15] LABS: Absolute Lymphocyte Count 1.73 X10^3/uL (0.83-4.51); Absolute Neutrophil Count 5.3 X10^3/uL (2.0-7.7); Basophil# 0.02 X10^3/uL; Basophil% 0.2 % (0-1); Eosinophil# 0.13 X10^3/uL; Eosinophils% 1.6 % (0-5); Hematocrit 46.7 % (40-54); Lymphocyte # 1.73 X10^3/ul (0.83-4.51); Lymphocyte % 21.5 % (19-41); Mean Corp Hgb Conc 32.1 g/dL (32-36); Mean Corpuscular Volume 87.3 fL (80-94); Mean Platelet Vol. 11.9 fl (6.2-12.0); Monocyte# 0.82 X10^3/uL; Monocyte% 10.2 % (0-10); NRBC Flagged by Analyzer 0 % (0-5); Neutrophil % 66.1 % (47-70); Platelet Count 154 K/mm3 (150-450); RBC Distribution Width CV 12.9 % (11.6-14.6); RBC Distribution Width SD 41.1 fl (35.1-43.9); Red Blood Count 5.35 M/mm3 (4.6-6.2)
[2023-11-11 12:58] LABS: ALB/GLOB Ratio 0.8 RATIO (0.9-2.4); AST(SGOT) 16 U/L (15-37); Alanine Aminotransfer ALT/SGPT 17 U/L (16-61); Albumin, Serum 3.3 g/dL (3.2-5.0); Alkaline Phosphatase 35 U/L (45-117); Anion Gap 5 (5-15); BUN 19 mg/dL (7-18); BUN/Creat Ratio 17.6 RATIO (10-20); Calcium,Total 9.6 mg/dL (8.5-10.1); Chloride 106 mmol/L (98-107); Creatinine, Serum 1.08 mg/dL (0.70-1.30); EST Glomerular Filtration Rate 72 mL/min (>60); Est Glom Filt Rate - Afr Amer 87 mL/min (>60); Glucose 114 mg/dL (74-106); Potassium 3.8 mmol/L (3.5-5.1); Protein, Total 7.3 g/dL (6.4-8.2); Sodium Level 140 mmol/L (136-145)
== END | disposition home or self-care (01) ==
LOC: BIMLAB 09:17
PROVIDERS: PCP Family Medicine; Referring Provider Physician Assistant; Visit Provider Physician Assistant
DX: R19.7 Diarrhea, unspecified (principal)
CPT/HCPCS: 36415; 80053; 84443; 85025

== ENCOUNTER → 2023-11-15 | Outpatient (CLI) | payer MEDICARE, SELFPAY | END | disposition home or self-care (01) | LOC: BIMLAB 10:06 | PROVIDERS: PCP Family Medicine; Visit Provider Physician Assistant | DX: R19.7 Diarrhea, unspecified (principal) | CPT/HCPCS: 82274 ==

== ENCOUNTER → 2023-12-01 | Outpatient (CLI) | payer MEDICARE, SELFPAY | END | disposition home or self-care (01) | LOC: LABSPEC 09:54 | PROVIDERS: PCP Family Medicine; Referring Provider Surgery; Visit Provider Surgery | DX: R19.7 Diarrhea, unspecified (principal) | CPT/HCPCS: 87177; 87209; 87493 ==

== ENCOUNTER 2023-12-16 06:43 | Day surgery (SDC) | payer MEDICARE, SELFPAY ==
[2023-12-16] VITALS (9 sets, daily range): BP systolic 81–122; BP diastolic 56–73; PULSE 61–69; RESP 14–16; TEMP 36.2–36.3; O2SAT 88–95; BMI 35.7
--- OUTSIDE RECORDS SUMMARY | 2023-12-16 06:45 | XMS RPT_ITS | CCD ---
Author Organization [employer] [facility] Results Test Name Value Interpretation Reference Range Facil ity CNPNon 04-23-2021 CNPN Telephone (AGHOSP) MICHELLE SOLARES ([id number]) 1955 M Date Time Provider Department 04/23/21 YULISA CHRISTIANSON During your visit today, we recorded the following information about you: Krishna Cota 04/23/2021 12:09 PM Signed Left Michelle a Voicemail checking up on him to see if he had any questions left our # Allergies As of Date: 04/23/2021 (No Known Allergies) Date Reviewed: 04/14/2021 Reviewed by: Yulisa Christianson MD - Fully Assessed 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 - carvedilol (COREG) 6.25 mg tablet Take 6.25 mg by mouth twice daily with meals. - ticagrelor (BRILINTA) 90 mg tablet Take 90 mg by mouth. - valsartan (DIOVAN) 80 mg tablet Take 80 mg by mouth once daily. - aspirin 81 mg chewable tablet 1 tablet by ORAL/FEEDING TUBE route once daily. - atorvastatin (LIPITOR) 40 mg tablet 1 tablet by ORAL/FEEDING TUBE route daily at bedtime. 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] 10/13/2016 Post-operative state [Z98.890] 11/25/2016 Pain due to bone fixation device (HCC) [T84.84X*07/29/2017 08/08/2017 Right ankle tendonitis [M77.51] 07/29/2017 08/08/2017 Exostosis of right tibia [M89.8X6] 07/29/2017 08/08/2017 Cerebrovascular accident (CVA) due to vascular *09/20/2019 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]09/20/2019 09/28/2019 HTN (hypertension) [I10] 09/20/2019 Insomnia [G47.00] 09/20/2019 09/28/2019 Cerebral edema (HCC) [G93.6] 09/20/2019 09/28/2019 Vertebral artery stenosis/occlusion with infarc*09/20/2019 09/28/2019 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] 09/20/2019 Delirium [R41.0] 09/22/2019 09/28/2019 Restlessness and agitation [R45.1] 09/22/2019 09/28/2019 Obesity, Class I, BMI 30-34.9 [E66.9] 09/28/2019 TIA involving basilar artery [G45.0] 10/07/2020 10/08/2020 Encounter Status:Closed by KRISHNA COTA on 04/23/21 [facility] BRIEF OP NOTon 04-14-2021 BRIEF OP NOT HNO ID: [id number] Author: Yulisa Christianson MD Service: [facility] Author Type: Physician Type: Brief Op Note Filed: 04/14/2021 11:48 AM Note Text: BRIEF OPERATIVE / PROCEDURE NOTE LOG ID: [id number] SURGERY/PROCEDURE DATE: 04/14/2021 INCISION/PROCEDURE START TIME: 11:20 AM INCISION CLOSE/PROCEDURE END TIME: 11:41 AM SURGEON(S)/PROCEDURALI ST(S) AND FACILITIES LOCATOR(S): Surgeon(s) and Role: * Yulisa Christianson MD - Primary No Additional Staff SURGERY/PROCEDURE(S): DCA ANESTHESIA: Procedural Sedation FINDINGS: persistent perfect [atency of B vert ostium stents ESTIMATED BLOOD LOSS: 5 mls SPECIMENS: None COMPLICATIONS: None PRE-OP/PRE-PROCEDURE DIAGNOSIS: 1 yea s/p BA thrombectomy anf stneting B vert ostium POST-OP/POST-PROCEDURE DIAGNOSIS: persistent perfect [atency of B vert ostium stents SIGNATURE: Yulisa Christianson MD PATIENT NAME: Michelle Solares DATE: April 14, 2021 TIME: 11:[address] [facility] Basic metabolic 2000 panelon 04-14-2021 Anion gap [Moles/Vol] 13 mmol/L Normal 9-18 [facility] Comment on above: Order Comment: Speci men Type: BLOOD SPECIMEN Ordering Facility: [facility] Address: [address] [place] [address] Performed By: #### 2 4321-2 #### [facility] CLIA [id number] 1 [place] [address] [place] Calcium [Mass/Vol] 9.0 mg/dL Normal 8.5-10.2 [facility] Comment on above: Order Comment: Speci men Type: BLOOD SPECIMEN Ordering Facility: [facility] Address: [address] [place] [address] Performed By: #### 2 4321-2 #### [facility] CLIA [id number] 1 [place] [address] [place] Chloride [Moles/Vol] 107 mmol/L High 97-105 [facility] Comment on above: Order Comment: Speci men Type: BLOOD SPECIMEN Ordering Facility: [facility] Address: [address] [address] Performed By: #### 2 4321-2 #### [facility] CLIA [id number] [address] [place] CO2 [Moles/Vol] 23 mmol/L Normal 22-30 [facility] Comment on above: Order Comment: Neeraj mercedes Type: BLOOD SPECIMEN Ordering Facility: [facility] Address: [address] [place] [address] Performed By: #### 2 4321-2 #### [facility] CLIA [id number] [address] [place] Creatinine [Mass/Vol] 0.75 mg/dL Normal 0.73-1.22 [facility] Comment on above: Order Comment: Speci men Type: BLOOD SPECIMEN Ordering Facility: [facility] Address: [address] [place] [address] Performed By: #### 2 4321-2 #### [facility] CLIA [id number] [address] [place] OF [facility] GFR/1.73 sq M.predicted MDRD (S/P/Bld) [Vol rate/Area] mL/min/{1.73_m2} Normal [facility] Comment on above: Order Comment: Neeraj mercedes Type: BLOOD SPECIMEN Ordering Facility: [facility] Address: [address] [place] [address] Result Comment: >60 eGFR (Estimated GFR) Units of measure: mL/min/1.73 meters squared eGFR is derived from the reexpressed MDRD Study equation using the following parameters: serum creatinine, age, gender and race. The creatinine assay has been calibrated to be traceable to IDMS. An eGFR <60 mL/min/1.73m2 for >3 months is consistent with chronic kidney disease. Refer to KDOQI guidelines for clinical interpretation. In patients with unstable renal function, e.g. those with acute kidney injury, the eGFR may not accurately reflect actual GFR. Performed By: #### 2 4321-2 #### [facility] CLIA [id number] [address] [place] Glucose [Mass/Vol] 99 mg/dL Normal 74-99 [facility] Comment on above: Order Comment: Speci men Type: BLOOD SPECIMEN Ordering Facility: [facility] Address: [address] [address] Result Comment: The Canadian Diabetes Association (ADA) provides guidance for cutoff values for fasting glucose and random glucose. The ADA defines fasting as no caloric intake for at least 8 hours. Fasting plasma glucose results between 100 to 125 mg/dL indicate increased risk for diabetes (prediabetes). Fasting plasma glucose results greater than or equal to 126 mg/dL meet the criteria for diagnosis of diabetes. In the absence of unequivocal hyperglycemia, results should be confirmed by repeat testing. In a patient with classic symptoms of hyperglycemia or hyperglycemic crisis, random plasma glucose results greater than or equal to 200 mg/dL meet the criteria for diagnosis of diabetes. Reference: Standards of Medical Care in Diabetes 2016, Canadian Diabetes Association. Diabetes Care. 2016.39(Suppl 1). Performed By: #### 2 4321-2 #### [facility] CLIA [id number] 1 [place] [address] [place] Potassium [Moles/Vol] 4.4 mmol/L Normal 3.7-5.1 [facility] Comment on above: Order Comment: Neeraj mercedes Type: BLOOD SPECIMEN Ordering Facility: [facility] Address: [address] [address] Performed By: #### 2 1-2 #### [facility] CLIA [id number] 1 [place] [address] [place] Sodium [Moles/Vol] 143 mmol/L Normal 136-144 [facility] Comment on above: Order Comment: Neeraj mercedes Type: BLOOD SPECIMEN Ordering Facility: [facility] Address: [address] [address] Performed By: #### 2 4321-2 #### [facility] CLIA [id number] [address] [place] [address] [place] Urea nitrogen [Mass/Vol] 15 mg/dL Normal 9-24 [facility] Comment on above: Order Comment: Neeraj mercedes Type: BLOOD SPECIMEN Ordering Facility: [facility] Address: [address] [address] Performed By: #### 2 4321-2 #### [facility] CLIA [id number] [address] CBC panel Auto (Bld)on 04-14 Erythrocyte distribution width (RBC) [Ratio] 13.5 % Normal 11.5-15.0 [facility] Comment on above: Order Comment: Speci men Type: BLOOD SPECIMEN Ordering Facility: [facility] Address: [address] [place] [address] Performed By: #### 5 8410-2 #### [facility] CLIA [id number] [address] Hematocrit (Bld) [Volume fraction] 49.4 % Normal 39.0-51.0 [facility] Comment on above: Order Comment: Speci men Type: BLOOD SPECIMEN Ordering Facility: [facility] Address: [address] [place] [address] Performed By: #### 5 8410-2 #### [facility] CLIA [id number] [address] Hemoglobin (Bld) [Mass/Vol] 15.4 g/dL Normal 13.0-17.0 [facility] Comment on above: Order Comment: Speci men Type: BLOOD SPECIMEN Ordering Facility: [facility] Address: [address] [place] [address] Performed By: #### 5 8410-2 #### [facility] CLIA [id number] [address] MCH (RBC) [Entitic mass] 27.4 pg Normal 26.0-34.0 [facility] Comment on above: Order Comment: Speci men Type: BLOOD SPECIMEN Ordering Facility: [facility] Address: [address] [place] [address] Performed By: #### 5 8410-2 #### [facility] CLIA [id number] [address] MCHC (RBC) [Mass/Vol] 31.2 g/dL Normal 30.5-36.0 [facility] Comment on above: Order Comment: Speci men Type: BLOOD SPECIMEN Ordering Facility: [facility] Address: [address] [address] Performed By: #### 5 8410-2 #### [facility] CLIA [id number] [address] MCV (RBC) [Entitic vol] 87.9 fL Normal 80.0-100.0 [facility] Comment on above: Order Comment: Speci men Type: BLOOD SPECIMEN Ordering Facility: [facility] Address: [address] [place] [address] Performed By: #### 5 8410-2 #### [facility] CLIA [id number] [address] [place] Nucleated RBC (Bld) [#/Vol] 10*3/uL Normal <0.01 [facility] Comment on above: Order Comment: Speci men Type: BLOOD SPECIMEN Ordering Facility: [facility] Address: [address] [place] [address] Performed By: #### 5 8410-2 #### [facility] CLIA [id number] [address] Platelet mean volume (Bld) [Entitic vol] 11.6 fL Normal 9.0-12.7 [facility] Comment on above: Order Comment: Speci men Type: BLOOD SPECIMEN Ordering Facility: [facility] Address: [address] [place], [place] [id number] Performed By: #### 5 8410-2 #### [facility] CLIA [id number] [address] [place] Platelets (Bld) [#/Vol] 154 10*3/uL Normal 150-400 [facility] Comment on above: Order Comment: Speci men Type: BLOOD SPECIMEN Ordering Facility: [facility] Address: [address] [place] [address] Performed By: #### 5 8410-2 #### [facility] CLIA [id number] [address] OF [facility] RBC (Bld) [#/Vol] 5.62 10*6/uL Normal 4.20-6.00 [facility] Comment on above: Order Comment: Speci men Type: BLOOD SPECIMEN Ordering Facility: [facility] Address: [address] [place] [address] Performed By: #### 5 8410-2 #### [facility] CLIA [id number] [address] WBC (Bld) [#/Vol] 6.74 10*3/uL Normal 3.70-11.00 [facility] Comment on above: Order Comment: Speci men Type: BLOOD SPECIMEN Ordering Facility: [facility] Address: [address] [place] [address] Performed By: #### 5 8410-2 #### [facility] CLIA [id number] [address] HISTORY PHYSICALon 2 HISTORY PHYSICAL HNO ID: [id number] Author: Yulisa Christianson MD Service: [facility] Author Type: Physician Type: HANDP Filed: 04/14/2021 11:16 AM Note Text: PROCEDURAL SEDATION HISTORY AND PHYSICAL EXAM SERVICE DATE: 04/14/2021 SERVICE TIME: 11:15 AM Subjective HPI: This is a 66 year old male who presents with 1 year s/p stentiung B vert ostium stenting PAST ANESTHESIA HISTORY: No history of adverse event PAST MEDICAL HISTORY Diagnosis Date - HTN (hypertension) - Insomnia 09/20/2019 - MAGALIS (obstructive sleep apnea) does not use c-pap - Palpitations - Right ankle pain - SVT (supraventricular tachycardia) (HCC) - Tachycardia PAST SURGICAL HISTORY Procedure Laterality Date - ANKLE SURGERY HX Right 04/27/2016 rt ankle - APPENDECTOMY HX as a child - COLOSTOMY and reversed - HERNIA REPAIR HX - PAST SURGICAL HISTORY OF Right 04/21/2016 REV ANKLE FUSION - PAST SURGICAL HISTORY OF Right 08/08/2017 ANKLE - SVT ABLATION 02/27/2016 EP study, Dr. Baum - TONSILLECTOMY AND ADENOIDECTOMY HX as a child Prior to Admission medications as of 2/22/22 1007 Medication Sig Last Dose Taking traZODone (DESYREL) 50 mg tablet Take 50 mg by mouth daily at bedtime. 04/13/2021 at 2100 Yes carvedilol (COREG) 6.25 mg tablet Take 6.25 mg by mouth twice daily with meals. 04/14/2021 at 0630 Yes ticagrelor (BRILINTA) 90 mg tablet Take 90 mg by mouth. 04/14/2021 at 0630 Yes valsartan (DIOVAN) 80 mg tablet Take 80 mg by mouth once daily. 04/14/2021 at 0630 Yes aspirin 81 mg chewable tablet 1 tablet by ORAL/FEEDING TUBE route once daily. 04/14/2021 at 0630 Yes atorvastatin (LIPITOR) 40 mg tablet 1 tablet by ORAL/FEEDING TUBE route daily at bedtime. 04/13/2021 at 2100 Yes ALLERGIES No Known Allergies Objective PHYSICAL EXAM: The remainder of the physical exam is noncontributory. AIRWAY: Airway Visualization of Uvula: Yes Mouth opening greater than 2 fingerbreadths: Yes Neck Full Range of Motion: Yes LUNGS: CARDIAC: , Assessment/Plan ASA Class: ASA Class:: Patient with severe systemic disease Active Problems: * No active hospital problems. * Resolved Problems: * No resolved hospital problems. * Medication and Non-Pharmacologic VTE Prophylaxis/Anticoagul ants VTE Prophylaxis: none Provisional Diagnosis/Treatment Plan: DCA SEDATION GOAL: Moderate SIGNATURE: Yulisa Christianson MD PATIENT NAME: Michelle Solares DATE: April 14, 2021 TIME: 11:[address] [facility] OPERATIVE NOon 04-14-2021 OPERATIVE NO HNO ID: [id number] Author: Yulisa Christianson MD Service: [facility]cted [facility] Author Type: Physician Type: Operative Report Filed: 04/14/2021 8:20 PM Note Text: [facility] - Operative Report MICHELLE SOLARES : 1955 AGE: 66. SEX: M PATIENT TYPE: A HOSP SVC: NEUS LOCATION: [facility] ATTENDING PHYSICIAN: YULISA CHRISTIANSON CSN NUMBER: [id number] DATE OF SURGERY/PROCEDURE: 04/14/2021 INCISION/PROCEDURE START TIME: 11:00 a.m. INCISION CLOSE/PROCEDURE END TIME: 11:45 am. PREOPERATIVE DIAGNOSIS: 1 year s/p stenting g B vert ostium and BA thrombectomy POSTOPERATIVE DIAGNOSIS: Persistent perfect patency of the B Vert ostium stent SURGEON: Yulisa Christianson MD FACILITIES LOCATOR: None. SURGERY/PROCEDURE: Cerebral angiography. ANESTHESIA: Conscious sedation. INFORMED CONSENT: Consent form obtained from the patient. COMPLICATIONS: None. ESTIMATED BLOOD LOSS: Less than 5 mL. TOTAL TIME: The patient required 45 minutes of conscious sedation provided by the operating physician. VESSELS CATHETERIZED: 1. Left subclavian artery. 2. Left common carotid artery. 3. Right common carotid artery. 4. Right subclavian artery. VESSELS IMAGED: 1. Frontal angiogram of the left subclavian artery through left subclavian artery injection. 2. Frontal and lateral posterior fossa angiogram through left subclavian artery injection. 3. Frontal and lateral left common carotid artery bifurcation angiogram through left common carotid injection. 4. Frontal and lateral full cerebral angiogram through left common carotid injection. 5. Frontal and lateral right common carotid artery angiogram through right common carotid injection. 6. Frontal and lateral full cerebral angiogram through right common carotid injection. 7. Frontal angiogram of the right subclavian artery through right subclavian artery injection. 8. Frontal and lateral posterior fossa angiogram through right subclavian artery injection. 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 The patient was left to the rehab and recuperated remarkably well. Now, he present with modified Shea scale of 0. His only complaint is amnesia for recent event. Otherwise, he is normal. The cerebral angiogram is being performed to rule out the possibility of in-stent stenosis. In-stent stenosis findings will have significant impact in the recommendation of the patient and treatment options. DESCRIPTION OF PROCEDURE: The patient was placed on the angiography table in usual supine position. Both groins were prepped and draped in sterile fashion. After giving the patient 10 mL of 2% lidocaine in the right groin, access to the right common femoral artery was obtained using micropuncture system. After serial dilatation, a 6-Guyanese long sheath was advanced with its tip in descending thoracic aorta. The sheath was flushed and hooked up to the heparinized saline flush. Through the sheath, a 5-Guyanese AVELINA diagnostic catheter was advanced into the left subclavian artery. Frontal angiogram of the left subclavian artery was obtained followed by posterior fossa angiogram in frontal and lateral projections. The diagnostic catheter was inserted in the left common carotid artery. Frontal and lateral left common carotid bifurcation angiogram was obtained followed by full cerebral angiography. Diagnostic catheter was advanced in the right common carotid artery. Frontal and lateral right common carotid angiogram was obtained followed by full cerebral angiogram. Diagnostic catheter was advanced in the right subclavian artery. Frontal angiogram of the right subclavian artery was obtained followed by posterior fossa angiogram in frontal lateral projections. Diagnostic catheter was removed. The sheath was removed and adequate hemostasis was obtained using StarClose device. No immediate complications. SUPERVISION AND INTERPRETATION: The frontal angiogram of the left subclavian artery obtained through left subclavian artery injection demonstrated persistent perfect patency of the left vertebral artery ostium stent. The frontal and lateral posterior fossa angiogram obtained through the right vertebral artery injection demonstrated normal posterior fossa circulation. The basilar artery and branches were normal. No contrast material reflux into the right [employer] junction; however, there is occlusion of the intracranial right vertebral artery. The frontal and lateral left common carotid bifurcation angiogram obtained through right common carotid injection showed no abnormality. The full cerebral angiogram obtained through left carotid injection showed normal intracranial circulation. The frontal and late (more content not included)... Normal [facility] PT panel Coag (PPP)on 2021 INR Coag (PPP) [Relative time] 1.0 {INR} Normal 0.9-1.3 [facility] Comment on above: Order Comment: Speci men Type: BLOOD SPECIMENOrdering Facility: [facility] Address: [address] [place] [id number] Result Comment: Shabnam min K Antagonist (VKA) Therapeutic Range: INR 2 to 3 (Target INR of 2.5) Note: For patients treated with VKA drugs, such as warfarin, the [employer] College of Chest Physicians 2012 Guideline recommends a therapeutic INR range of 2 to 3 (target INR of 2.5). This recommendation includes high-risk patients with antiphospholipid syndrome with previous arterial or venous thromboembolism, current-generation mechanical or bioprosthetic aortic heart valve replacement. Note: Patients with mechanical aortic valve replacement and additional risk factors for thromboembolic events (atrial fibrillation, previous thromboembolism, LV dysfunction, hypercoagulable conditions) or an older generation mechanical AVR (i.e., ball in-Cage) or any mechanical MVR should have a INR therapeutic range of 2.5 to 3.5 (target INR of 3). Linda STORM, et al. Chest 2012, 141:7S-47S Sarika RA, et al. JAC 2017, 70: 252-289 Performed By: #### 3 4528-0 ####[facility] [id number] [address] [place] OF [facility] PT Coag (PPP) [Time] 11.5 s Normal 9.7-13.0 [facility] Comment on above: Order Comment: Neeraj mercedes Type: BLOOD SPECIMENOrdering Facility: [facility] Address: [address] [place], [place] [id number] Performed By: #### 3 4528-0 ####[facility] [id number] [address] CNPYasemin 04-13-2021 CNPN Telephone (AGHOSP) MICHELLE SOLARES ([id number]) 1955 M Date Time Provider Department 04/13/21 YULISA CHRISTIANSON AGSP During your visit today, we recorded the following information about you: Krishna Cipriano 04/13/2021 2:44 PM Signed Left a voicemail for michelle reminding him of his procedure tomorrow Allergies As of Date: 04/13/2021 (No Known Allergies) Date Reviewed: 10/08/2020 Reviewed by: Violeta Trent RN - Fully Assessed 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 - carvedilol (COREG) 6.25 mg tablet Take 6.25 mg by mouth twice daily with meals. - ticagrelor (BRILINTA) 90 mg tablet Take 90 mg by mouth. - valsartan (DIOVAN) 80 mg tablet Take 80 mg by mouth once daily. - aspirin 81 mg chewable tablet 1 tablet by ORAL/FEEDING TUBE route once daily. - atorvastatin (LIPITOR) 40 mg tablet 1 tablet by ORAL/FEEDING TUBE route daily at bedtime. 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] 10/13/2016 Post-operative state [Z98.890] 11/25/2016 Pain due to bone fixation device (HCC) [T84.84X*07/29/2017 08/08/2017 Right ankle tendonitis [M77.51] 07/29/2017 08/08/2017 Exostosis of right tibia [M89.8X6] 07/29/2017 08/08/2017 Cerebrovascular accident (CVA) due to vascular *09/20/2019 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]09/20/2019 09/28/2019 HTN (hypertension) [I10] 09/20/2019 Insomnia [G47.00] 09/20/2019 09/28/2019 Cerebral edema (HCC) [G93.6] 09/20/2019 09/28/2019 Vertebral artery stenosis/occlusion with infarc*09/20/2019 09/28/2019 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] 09/20/2019 Delirium [R41.0] 09/22/2019 09/28/2019 Restlessness and agitation [R45.1] 09/22/2019 09/28/2019 Obesity, Class I, BMI 30-34.9 [E66.9] 09/28/2019 TIA involving basilar artery [G45.0] 10/07/2020 10/08/2020 Encounter Status:Closed by KRISHNA COTA on 04/13/21 [facility] Ingrid 11-12-2020 CNPN Telephone (AGHOSP) FRANKIEMICHELLE ([id number]) 1955 M Date Time Provider Department 11/12/20 YULISA CHRISTIANSON [facility] During your visit today, we recorded the following information about you: Krishna Cota 11/12/2020 12:03 PM Signed Spoke to Violeta Delaney about coming off his meds for a colonoscopy but we wont know until after his DCA in mar Allergies As of Date: 11/12/2020 (No Known Allergies) Date Reviewed: 10/08/2020 Reviewed by: Violeta Trent, REBECCA - Fully Assessed 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 - carvedilol (COREG) 6.25 mg tablet Take 6.25 mg by mouth twice daily with meals. - ticagrelor (BRILINTA) 90 mg tablet Take 90 mg by mouth. - valsartan (DIOVAN) 80 mg tablet Take 80 mg by mouth once daily. - aspirin 81 mg chewable tablet 1 tablet by ORAL/FEEDING TUBE route once daily. - atorvastatin (LIPITOR) 40 mg tablet 1 tablet by ORAL/FEEDING TUBE route daily at bedtime. 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] 10/13/2016 Post-operative state [Z98.890] 11/25/2016 Pain due to bone fixation device (HCC) [T84.84X*07/29/2017 08/08/2017 Right ankle tendonitis [M77.51] 07/29/2017 08/08/2017 Exostosis of right tibia [M89.8X6] 07/29/2017 08/08/2017 Cerebrovascular accident (CVA) due to vascular *09/20/2019 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]09/20/2019 09/28/2019 HTN (hypertension) [I10] 09/20/2019 Insomnia [G47.00] 09/20/2019 09/28/2019 Cerebral edema (HCC) [G93.6] 09/20/2019 09/28/2019 Vertebral artery stenosis/occlusion with infarc*09/20/2019 09/28/2019 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] 09/20/2019 Delirium [R41.0] 09/22/2019 09/28/2019 Restlessness and agitation [R45.1] 09/22/2019 09/28/2019 Obesity, Class I, BMI 30-34.9 [E66.9] 09/28/2019 TIA involving basilar artery [G45.0] 10/07/2020 10/08/2020 Encounter Status:Closed by KRISHNA COTA on 11/12/20 [facility] Ingrid 10-17-2020 [facility] Telephone (HOSP) MICHELLE SOLARES ([id number]) 1955 M Date Time Provider Department 10/17/20 YULISA CHRISTIANSON [facility] During your visit today, we recorded the following information about you: Krishna Cota 10/17/2020 11:56 AM Signed Left a voicemail for michelle on 10/17-AW Allergies As of Date: 10/17/2020 (No Known Allergies) Date Reviewed: 10/08/2020 Reviewed by: Violeta Trent RN - Fully Assessed 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 - carvedilol (COREG) 6.25 mg tablet Take 6.25 mg by mouth twice daily with meals. - ticagrelor (BRILINTA) 90 mg tablet Take 90 mg by mouth. - valsartan (DIOVAN) 80 mg tablet Take 80 mg by mouth once daily. - aspirin 81 mg chewable tablet 1 tablet by ORAL/FEEDING TUBE route once daily. - atorvastatin (LIPITOR) 40 mg tablet 1 tablet by ORAL/FEEDING TUBE route daily at bedtime. Problem List As Of Date 10/17/2020 Noted Resolved Status post ankle fusion [Z98.1] 01/06/2016 Right ankle pain [M25.571] 01/06/2016 Ankle arthritis [M19.079] 01/16/2016 Mechanical complication internal fixation devic*01/16/2016 Tachycardia [R00.0] SVT (supraventricular tachycardia) (HCC) [I47.1] 09/28/2019 Palpitations [R00.2] Arthritis, midfoot [M19.079] 10/13/2016 Post-operative state [Z98.890] 11/25/2016 Pain due to bone fixation device (HCC) [T84.84X*07/29/2017 08/08/2017 Right ankle tendonitis [M77.51] 07/29/2017 08/08/2017 Exostosis of right tibia [M89.8X6] 07/29/2017 08/08/2017 Cerebrovascular accident (CVA) due to vascular *09/20/2019 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 Basic metabolic 2000 panelon 10-08-2020 Anion gap [Moles/Vol] 11 mmol/L Normal 11-08 [facility] Comment on above: Order Comment: Speci men Type: BLOOD SPECIMEN Performed By: #### 1 9123-9, 71683-9, 2776- ####[facility]ORYCLIA [id number] [place] [address] [place] Calcium [Mass/Vol] 9.2 mg/dL Normal 8.5-10.2 [facility] Comment on above: Order Comment: Speci men Type: BLOOD SPECIMEN Performed By: #### 1 9123-9, 70828-5, 2776- ####[facility]IA [id number] [place] [address] [place] Chloride [Moles/Vol] 104 mmol/L Normal 97-105 [facility] Comment on above: Order Comment: Speci men Type: BLOOD SPECIMEN Performed By: #### 1 9123-9, 34414-8, 2776- ####[facility] [id number] [place] [address] [place] CO2 [Moles/Vol] 25 mmol/L Normal 22-30 [facility] Comment on above: Order Comment: Speci men Type: BLOOD SPECIMEN Performed By: #### 1 9123-9, 23683-0, 7-1 ####[facility] [id number] [address] [place] Creatinine [Mass/Vol] 0.82 mg/dL Normal 0.73-1.22 [facility] Comment on above: Order Comment: Speci men Type: BLOOD SPECIMEN Performed By: #### 1 9123-9, 59783-9, 2777-1 ####[facility]ORYCLIA [id number] [place] [id number] [place] GFR/1.73 sq M.predicted MDRD (S/P/Bld) [Vol rate/Area] mL/min/{1.73_m2} Normal [facility] Comment on above: Order Comment: Speci men Type: BLOOD SPECIMEN Result Comment: >60 eGFR (Estimated GFR) Units of measure: mL/min/1.73 meters squared eGFR is derived from the reexpressed MDRD Study equation using the following parameters: serum creatinine, age, gender and race. The creatinine assay has been calibrated to be traceable to IDMS. An eGFR <60 mL/min/1.73m2 for >3 months is consistent with chronic kidney disease. Refer to KDOQI guidelines for clinical interpretation. In patients with unstable renal function, e.g. those with acute kidney injury, the eGFR may not accurately reflect actual GFR. Performed By: #### 1 9123-9, 10923-1, 2776-02 ####[facility]ATORYCLIA [id number] [place] [id number] [place] Glucose [Mass/Vol] 106 mg/dL High 74-99 [facility] Comment on above: Order Comment: Speci men Type: BLOOD SPECIMEN Result Comment: The [place] Diabetes Association (ADA) provides guidance for cutoff values for fasting glucose and random glucose. The ADA defines fasting as no caloric intake for at least 8 hours. Fasting plasma glucose results between 100 to 125 mg/dL indicate increased risk for diabetes (prediabetes). Fasting plasma glucose results greater than or equal to 126 mg/dL meet the criteria for diagnosis of diabetes. In the absence of unequivocal hyperglycemia, results should be confirmed by repeat testing. In a patient with classic symptoms of hyperglycemia or hyperglycemic crisis, random plasma glucose results greater than or equal to 200 mg/dL meet the criteria for diagnosis of diabetes. Reference: Standards of Medical Care in Diabetes 2016, Canadian Diabetes Association. Diabetes Care. 2016.39(Suppl 1). Performed By: #### 1 9123-9, 19252-9, 2776- ####[facility]IA [id number] [address] Potassium [Moles/Vol] 4.3 mmol/L Normal 3.7-5.1 [facility] Comment on above: Order Comment: Speci men Type: BLOOD SPECIMEN Performed By: #### 1 9123-9, 38896-0, 2776- ####[facility]ORATORYCLIA [id number] [address] Sodium [Moles/Vol] 140 mmol/L Normal 136-144 [facility] Comment on above: Order Comment: Speci men Type: BLOOD SPECIMEN Performed By: #### 1 9123-9, 66426-0, 2776- ####[facility] [id number] [address] Urea nitrogen [Mass/Vol] 13 mg/dL Normal 9-24 [facility] Comment on above: Order Comment: Speci men Type: BLOOD SPECIMEN Performed By: #### 1 9123-9, 98013-5, 2776-02 ####[facility] [id number] [address] CBC panel Auto (Bld)on 10-08 Erythrocyte distribution width (RBC) [Ratio] 13.2 % Normal 11.5-15.0 [facility] Comment on above: Order Comment: Speci men Type: BLOOD SPECIMEN Performed By: #### 5 8410-2 #### [facility] CLIA [id number] [address] Hematocrit (Bld) [Volume fraction] 45.9 % Normal 39.0-51.0 [facility] Comment on above: Order Comment: Speci men Type: BLOOD SPECIMEN Performed By: #### 5 8410-2 #### [facility] CLIA [id number] [address] Hemoglobin (Bld) [Mass/Vol] 15.0 g/dL Normal 13.0-17.0 [facility] Comment on above: Order Comment: Speci men Type: BLOOD SPECIMEN Performed By: #### 5 8410-2 #### [facility] CLIA [id number] [address] MCH (RBC) [Entitic mass] 28.1 pg Normal 26.0-34.0 [facility] Comment on above: Order Comment: Speci men Type: BLOOD SPECIMEN Performed By: #### 5 8410-2 #### [facility] CLIA [id number] [address] MCHC (RBC) [Mass/Vol] 32.7 g/dL Normal 30.5-36.0 [facility] Comment on above: Order Comment: Speci men Type: BLOOD SPECIMEN Performed By: #### 5 8410-2 #### [facility] CLIA [id number] [address] MCV (RBC) [Entitic vol] 86.0 fL Normal 80.0-100.0 [facility] Comment on above: Order Comment: Speci men Type: BLOOD SPECIMEN Performed By: #### 5 8410-2 #### [facility] CLIA [id number] [address] Nucleated RBC (Bld) [#/Vol] 10*3/uL Normal <0.01 [facility] Comment on above: Order Comment: Speci men Type: BLOOD SPECIMEN Performed By: #### 5 8410-2 #### [facility] CLIA [id number] [address] Platelet mean volume (Bld) [Entitic vol] 11.5 fL Normal 9.0-12.7 [facility] Comment on above: Order Comment: Speci men Type: BLOOD SPECIMEN Performed By: #### 5 8410-2 #### [facility] CLIA [id number] [address] Platelets (Bld) [#/Vol] 158 10*3/uL Normal 150-400 [facility] Comment on above: Order Comment: Speci men Type: BLOOD SPECIMEN Performed By: #### 5 8410-2 #### [facility] CLIA [id number] [address] RBC (Bld) [#/Vol] 5.34 10*6/uL Normal 4.20-6.00 [facility] Comment on above: Order Comment: Speci men Type: BLOOD SPECIMEN Performed By: #### 5 8410-2 #### [facility] CLIA [id number] [address] WBC (Bld) [#/Vol] 8.96 10*3/uL Normal 3.70-11.00 [facility] Comment on above: Order Comment: Speci men Type: BLOOD SPECIMEN Performed By: #### 5 8410-2 #### [facility] CLIA [id number] [address] CNDSon 10-08-2020 CNDS HNO ID: [id number] Author: Kasey Hernández APRN.SOFTWARE TRAINER Service: Neurology ICU Author Type: Nurse Practitioner Type: Discharge Summary Filed: 10/08/2020 12:47 PM Note Text: DISCHARGE SUMMARY PATIENT NAME: Michelle Solares ADMISSION DATE: 10/07/2020 DISCHARGE DATE: 10/08/2020 Attending Physician: Yulisa Christianson MD Code Status: Not on file Highest Readmission Risk Score: 10 The 30 day readmissions risk score is derived from an internally validated risk model which evaluates patient level characteristics, utilization history, medication orders and lab results up until the day of discharge. Patients with a score of 40 or above are considered highest risk for readmission. Specific patient level drivers will be listed at the bottom of the summary. Reason for Hospitalization: scheduled DCA with left vert ostium stenting Diagnosis: Active Problems: Cerebrovascular accident (CVA) due to vascular occlusion (HCC) POA: Yes HTN (hypertension) POA: Yes Resolved Problems: TIA involving basilar artery POA: Yes Hospital Course as Described to the Patient: You were admitted for . 10/08: s/p stenting of left vert ostium yesterday with Dr. Morales. Stable overnight, neuro exam intact. Likely d/c home today. Additional Provider to Provider Information: Active Problems: Cerebrovascular accident (CVA) due to vascular occlusion (HCC) HTN (hypertension) Resolved Problems: TIA involving basilar artery Operations During Hospitalization: none Procedures During Hospitalization: stenting of left vert ostium Consulting Teams During Hospitalization: Treatment Team: Attending Provider: Yulisa Christianson MD Consulting: Michelle Thomason DO None Patient Condition @ Discharge: stable Discharge Disposition: home Physical exam: GCS: Eyes: 4. Spontaneous Verbal: 5: Oriented Motor: 6: Obeys Motor commands Total: 15 CRANIAL NERVES: Normal mood and affect. CNII-XII grossly intact. MOTOR STRENGTH: Upper and lower extremity 5/5 bilaterally SENSATION: Intact light touch COORDINATION: Finger-to- nose-finger intact bilaterally CV: HRR Pulm: CTAB, even and unlabored on RA GI/: soft, nontender Skin/Extremities: Edema- No Peripheral pulses- Present all extremities Wounds/Drsgs- No Breakdown- No Information Provided to Patient: follow up info and post angio info Diet: regular Activity: as tolerated Wound/Surgical Site Care: see discharge instructions ALLERGIES No Known Allergies Discharge Medications: Current Discharge Medication List CONTINUE these medications which have NOT CHANGED traZODone (DESYREL) 50 mg Take 50 mg by mouth daily at bedtime. carvedilol (COREG) 6.25 mg Take 6.25 mg by mouth twice daily with meals. ticagrelor (BRILINTA) 90 mg Take 90 mg by mouth. valsartan (DIOVAN) 80 mg Take 80 mg by mouth once daily. aspirin 81 mg 81 mg by ORAL/FEEDING TUBE route once daily. Qty: 90 tablet Refills: 0 atorvastatin (LIPITOR) 40 mg 40 mg by ORAL/FEEDING TUBE route daily at bedtime. Qty: 90 tablet Refills: 0 Plan of Care: Plan of care discussed with Provider, RN, Patient Future Appointments: Follow Up with PCP: Joao Elliott DO DO Follow Up with [facility] as scheduled Appointments for Next 45 Days None The patient's risk for 30-day readmission is determined using the following contributing factors: Pt variables contributing to increased readmission risk: 17 Active Medication Orders 13 Most Recent BUN Result 9.2 First Resulted Calcium During Admission 1 Insurance - Medicare TIME OF CARE: Discharge Management: I personally spent less than 30 minutes involved in the discharge management of this patient. SIGNATURE: Kasey Hernández APRN.CNP PATIENT NAME: Michelle Solares DATE: October 08, 2020 TIME: 12:[address] [facility] CONSULTon 10-08-2020 CONSULT HNO ID: [id number] Author: Yulisa Christianson MD Service: Connected Care Author Type: Physician Type: Consults Filed: 10/09/2020 12:21 PM Note Text: [facility] - Consultation PATIENT NAME: MICHELLE SOLARES CSN: [id number] DATE OF : 1955 SEX/AGE: M/65 PATIENT TYPE: A HOSP SVC: ICU LOCATION: [facility] DATE OF SERVICE: 10/08/2020 TIME OF SERVICE: 11:00 AM REFERRING PHYSICIAN: YULISA CHRISTIANSON CHIEF COMPLAINT: 24 hours status post stenting of left vertebral artery ostium. I appreciate consult. I am seeing this patient at the postsurgical unit. He is alert, cooperative, and pleasant. His right groin is normal. He has no focal neurological sign. I explained to him the importance for him to stay on Brilinta b.i.d. and baby aspirin for the next year since he had a drug-eluting stent. I told him we need to repeat cerebral angiography in 6 months to rule out the possibility of in-stent stenosis. I answered all his questions. I spent 30 minutes reviewing the patient's chart, managing his care, and consulting with him. More than 50% of my time was spent in contact with the patient. Yulisa Christianson MD Neurosurgery FA:modl /[id number] Normal [facility] Magnesium SerPl-mCncon 10-08 Magnesium [Mass/Vol] 1.9 mg/dL Normal 1.7-2.3 [facility] Comment on above: Order Comment: Speci men Type: BLOOD SPECIMEN Performed By: #### 1 9123-9, 09399-6, 2777-1 ####[facility]ATORYCLIA [id number] [place] [address] [place] NURSING PROGon 10-08-2020 NURSING PROG HNO ID: [id number] Author: Susanna Coles RN Service: Nursing Author Type: Registered Nurse Type: Nursing Progress Note Filed: 10/08/2020 8:18 AM Note Text: Dr Salazar aware of unequal pupil size, no new orders. Ok to proceed with ASA and Brilinta this am. Normal [facility] OPERATIVE NOon 10-08-2020 OPERATIVE NO HNO ID: [id number] Author: Yulisa Christianson MD Service: Connected Care Author Type: Physician Type: Operative Report Filed: 10/09/2020 12:22 PM Note Text: [facility] - Operative Report MICHELLE SOLARES : 1955 AGE: 65. SEX: M PATIENT TYPE: A HOSP SVC: ICU LOCATION: [facility] ATTENDING PHYSICIAN: YULISA CHRISTIANSON CSN NUMBER: [id number] DATE OF SURGERY/PROCEDURE: 10/07/2020 INCISION/PROCEDURE START TIME: 10 a.m. INCISION CLOSE/PROCEDURE END TIME: 11:15 a.m. PREOPERATIVE DIAGNOSIS: Critical stenosis at the left vertebral artery ostium. POSTOPERATIVE DIAGNOSIS: Critical stenosis at the left vertebral artery ostium. Consent form obtained from the patient and his . SURGEON: Yulisa Christianson MD FACILITIES LOCATOR: None. SURGERY/PROCEDURE: Cerebral angiogram and stenting of the left vertebral artery ostium. ANESTHESIA: Conscious sedation. ESTIMATED BLOOD LOSS: Less than 10 mL. COMPLICATION: None. TOTAL TIME: The patient required 1 hour and 15 minutes of conscious sedation provided by the operating physician. VESSELS CATHETERIZED: 1. Right subclavian artery. 2. Left subclavian artery. 3. Right vertebral artery. VESSEL IMAGES: 1. Frontal angiogram of the right subclavian artery through right subclavian artery injection. 2. Frontal and lateral posterior angiogram through right subclavian artery injection. 3. Frontal angiogram of the left subclavian artery through left subclavian artery injection. 4. Frontal and lateral posterior fossa angiogram through left subclavian artery injection. INDICATION FOR PROCEDURE: This is a 65-year-old male, who presented to us last year with basilar artery occlusion. He underwent successful cerebral angiogram demonstrating critical stenosis of both vertebral arteries that both were stented and there was clot in the basilar artery that was successfully recanalized. The patient did remarkably well and back to baseline. The patient now came to my office and is complaining of dizzy spell and imbalance. I will proceed with cerebral angiography to rule out the possibility of recurrent stenosis at the right or left vertebral artery ostium stent. If significant stenosis is found, we will proceed with angioplasty and/or stenting procedure to improve the patient's flow to the posterior fossa and decrease the chances of subsequent stroke. DESCRIPTION OF PROCEDURE: The patient was positioned directly in usual supine position. Both groins were prepped and draped in the sterile fashion. After giving the patient 10 mL of 2% lidocaine in the right groin, access to the right common carotid was obtained using micropuncture system. After serial dilatation, a 7- Guyanese shuttle sheath was advanced with its tip in descending aorta. Through the shuttle sheath, a 5-Guyanese JB1 diagnostic catheter was advanced and selectively placed in the right subclavian artery. Frontal angiogram of the right subclavian artery was obtained followed by posterior fossa angiogram. Diagnostic catheter was selectively placed in the left subclavian artery. Frontal and lateral angiogram of right subclavian artery was obtained. 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 The right subclavian artery is otherwise unremarkable. The posterior fossa angiogram obtained through right carotid injection demonstrated normal opacification of the congenitally small right vertebral artery, which ends in small right plica. This is normal variant. The frontal angiogram of the left subclavian artery obtained through left subclavian artery injection demonstrate that the stent previously placed in the left vertebral artery ostium is not visualized. This is most likely due to displacement of the stent by the catheter used to perform the basilar artery thrombectomy. There is now critical preocclusive 99% stenosis at the left vertebral artery ostium due to circumferential plaque. THERAPEUTIC INTERVENTION: With diagnostic catheter in the left subclavian artery, the shuttle sheath was advanced to the proximal subclavian artery. The roadmap was obtained through a diagnostic catheter and a diagnostic catheter was then removed. Then, a Synergy balloon mounted stent 4 x 8 mm was advanced over The microwire was navigated through the critical preocclusive stenosis at the left vertebral artery ostium. The balloon mounted stent was advanced to the level of the stenoses. The stent was deployed by gradual inflation of the balloon. Balloon was then deflated and pulled back. Followup angiogram was obtained, demonstrated perfect angiographic result without evidence of residual stenosis at the vertebral artery ostium. At this time, balloon catheter was removed. Then, a full posterior fossa ang (more content not included)... Normal [facility] Phosphate SerPl-mCncon 10-08 Phosphate [Mass/Vol] 2.6 mg/dL Low 2.7-4.8 [facility] Comment on above: Order Comment: Speci men Type: BLOOD SPECIMEN Performed By: #### 1 9123-9, 67644-8, 2777-1 ####[facility]ORYCLIA [id number] [address] THERAPY NTon 10-08-2020 THERAPY NT HNO ID: [id number] Author: AC Gant/Anabelle Service: Occupational Therapy Author Type: Occupational Therapist Type: Therapy (PT/OT/Speech/Resp) Filed: 10/08/2020 12:58 PM Note Text: OCCUPATIONAL THERAPY MISSED VISIT SERVICE DATE: 10/08/2020 SERVICE TIME: 1257 to 1257 ROOM: [place] [address] Attempted Evaluation. Patient not seen due to No Skilled Needs. SIGNATURE: AC Gant/Anabelle PATIENT NAME: Michelle Solares DATE: October 08, 2020 TIME: 12:[address] [facility] THERAPY NT HNO ID: [id number] Author: Jaiden Santos PT Service: Physical Therapy Author Type: Physical Therapist Type: Therapy (PT/OT/Speech/Resp) Filed: 10/08/2020 11:56 AM Note Text: Physical Therapy Evaluation SERVICE DATE: 10/08/2020 SERVICE TIME: 1024 to 1039 ROOM: [place] [address] Recommended Discharge Disposition: Home Recommended Discharge Disposition Comments: Pt at baseline, no further PT needs PT 6 Clicks Score: 24 Current Hospital Course: s/p stenting left vertebral ostium in NIL on 10/07 Reason for Hospital Admission: NIL procedure Relevant Past Medical History: CVA 2020 s/p thrombectomy and stenting, right ankle fusion Response to Therapy Interventions: Good participation in activities Home Environment Patient Lives With: Spouse Assistance Available: 24 Hour Entry To Home: Stairs Number Of Stairs Into Home: 2 Number Of Stairs To Bed/Bath: 7 Equipment Owned: Cane Prior Functional Level: Within Functional Limits Prior Functional Level Comments: Pt reports fully independent prior to admit Patient Report: Pleasant and agreeable to PT CURRENT FUNCTIONAL STATUS: Most recent performance Current Functional Mobility Assist Level Additional Information Rolling Supine to Sit Independent Sit to Supine Independent Scooting Sit to Stand Independent Stand to Sit Independent Bed to Chair Toilet/Commode Gait Independent Gait Device: None Gait Distance (feet): 70 Stairs Curb Step Car Transfer Blank duval indicate activity not attempted Range of Motion: WFL Strength: WFL Balance: Static Standing;Dynamic Standing Static Standing Balance: Good Patient able to maintain balance without handhold support, limited postural sway Dynamic Standing Balance: Good Patient accepts moderate challenge, able to maintain balance while picking up object off floor JH-HLM: 7: Walk 25 feet or more Functional Performance Test Functional Performance Test: Modified 4-Item Dynamic Gait Index Brief Dynamic Gait Index Gait on level surface: 3 Gait with speed changes: 3 Horizontal head turns: 3 Vertical head turns: 3 Total Score: 12 Score <10 indicates increased risk for falls. Learning/Educational Needs: Discharge Plan;Functional Activities/Mobility Patient will be discontinued from Physical Therapy when no further skilled needs are identified in this setting. PLAN: PT Frequency: Discontinue therapy services Reasons Therapy Services Discontinued: Independent in all functional mobility;No skilled needs Plan of Care developed with: Patient TREATMENT INTERVENTIONS: Therapy Diagnosis: No Skilled Need Interventions Provided: Evaluation $ Evaluation-Low (12589) Billed Units: 1 unit Training AND education provided in: Role of Physical Therapy The following therapeutic skills were used: Cues for sequencing/proper technique for activity Total Treatment Time (minutes): 15 Please see discipline specific clinical documentation flowsheet for complete details for this therapy evaluation/treatment. SIGNATURE: Jaiden Santos, PT PATIENT NAME: Michelle Solares DATE: October 08, 2020 TIME: 11:[address] [facility] BRIEF OP NOTon 10-07-2020 BRIEF OP NOT HNO ID: [id number] Author: Yulisa Christianson MD Service: Connected Care Author Type: Physician Type: Brief Op Note Filed: 10/07/2020 11:17 AM Note Text: BRIEF OPERATIVE / PROCEDURE NOTE LOG ID: [id number] SURGERY/PROCEDURE DATE: 10/07/2020 INCISION/PROCEDURE START TIME: INCISION CLOSE/PROCEDURE END TIME: 11:03 AM SURGEON(S)/PROCEDURALI ST(S) AND FACILITIES LOCATOR(S): Surgeon(s) and Role: * Yulisa Christianson MD - Primary No Additional Staff SURGERY/PROCEDURE(S): stenting lt vert ostium ANESTHESIA: Procedural Sedation FINDINGS: critical pre-occlusive stenosis at the lt vert ostium ESTIMATED BLOOD LOSS: 20 mls SPECIMENS: None COMPLICATIONS: None PRE-OP/PRE-PROCEDURE DIAGNOSIS: Posterior fossa TIA POST-OP/POST-PROCEDURE DIAGNOSIS: Same as Preop SIGNATURE: Yulisa Christianson MD PATIENT NAME: Michelle Solares DATE: October 07, 2020 TIME: 11:[address] [facility] HISTORY PHYSICALon HISTORY PHYSICAL HNO ID: [id number] Author: Scooby Dover MD Service: Neurology ICU Author Type: Resident Type: HANDP Filed: 10/07/2020 6:00 PM Note Text: Attestation signed by Michelle Thomason DO at 10/07/2020 6:06 PM Neuro ICU Progress Note (Staff Addendum) THE NEURO ICU MANAGEMENT OF THIS PATIENT WAS DISCUSSED WITH THE NSICU TEAM UNDER DR. THOMASON I have reviewed the progress note obtained and documented by the resident, Dr. Dover and I personally participated in the jenkins components. I have discussed the case and management of the patient's care. The following comments revise or confirm relevant jenkins components of the note. Please see the documented [id number] plan in the updated problem list. PATIENT PROBLEMS I REVIEWED, REVISED AND/OR INITIATED: The care of this patient required my full attention and direct personal management of: Active Problems: Cerebrovascular accident (CVA) due to vascular occlusion (HCC) HTN (hypertension) TIA involving basilar artery Resolved Problems: * No resolved hospital problems. * Summary/Impression: 65 year old male with prior stroke prsented for stenting of the left vertebral ostium. Patient admitted to NSICU post-NIL. Brief Exam Findings and Data: Patient is intact post-intervention We made the following changes during rounds: Restarted home meds Bedside Eval Actions/Plans: - SBP 140-160 - Restarted home anti-platelet (patient no longer takes plavix, currently on ASA and Brilinta) - Monitor in NSICU overnight; if stable, plan to discharge home in AM Plan of care discussed with: Patient, ICU Team, RN, Pharmacist, and Dr. Christianson . ==== STAFF COORDINATION OF CRITICAL CARE [facility] Staff Physician note of personal involvement in Care The patient is critically ill because of imminent risk of acute brain damage and continues to require intensive support and observation. This patient has a high probability of sudden, clinically significant deterioration, which requires the highest level of physician preparedness to intervene urgently. I managed/supervized life or organ supporting interventions that required frequent physician assessment. I devoted my full attention to the direct care of this patient for the amount of time indicated below. Time I spent with family or surrogate(s) is included only if the patient was incapable of providing the necessary information or participating in medical decision making. Time devoted to teaching or to any procedures I billed separately is not included. CRITICAL CARE: I personally spent 60 minutes of critical care time involved in the care of this patient. ==== Michelle Thomason DO Staff, Neurointensive Care [facility] [place] Date of Service: 10/07/2020 Time of Service: 6:03 PM NEUROLOGICAL INTENSIVE CARE UNIT HISTORY AND PHYSICAL REASON FOR ADMISSION: Stenting Lt vert ostium Subjective HPI: The patient is a 65-year-old male history of CVA status post PCI, BA thrombectomy and B vertebral ostium stenting on 09/20/2019 presenting to the NIL for reevaluation and sending the left vertebral ostium. The patient presented again for an elective procedure. He presented from outpatient setting and underwent Critical pre-occlusive stenosis at the Lt vert ostium. After the procedure he was admitted to the Neuro ICU for monitoring. Patient is stable and has no complaints. Patient denies pain, swelling or bleeding near right femoral entry site. He has no GODINEZ, weakness, numbness, vision changes. Patient states he feels at his baseline. PAST MEDICAL HISTORY Diagnosis Date - HTN (hypertension) - Insomnia 09/20/2019 - MAGALIS (obstructive sleep apnea) does not use c-pap - Palpitations - Right ankle pain - SVT (supraventricular tachycardia) (HCC) - Tachycardia PAST SURGICAL HISTORY Procedure Laterality Date - ANKLE SURGERY HX Right 04/27/2016 rt ankle - APPENDECTOMY HX as a child - COLOSTOMY and reversed - HERNIA REPAIR HX - PAST SURGICAL HISTORY OF Right 04/21/2016 REV ANKLE FUSION - PAST SURGICAL HISTORY OF Right 08/08/2017 ANKLE - SVT ABLATION 02/27/2016 EP study, Dr. Baum - TONSILLECTOMY AND ADENOIDECTOMY HX as a child FAMILY HISTORY Problem Relation Age of Onset - Heart Father He at age 52 - other (svt) Brother ablation ALLERGIES No Known Allergies PRIOR TO ADMISSION MEDICATIONS: traZODone (DESYREL) 50 mg tablet, Take 50 mg by mouth daily at bedtime., Disp: , Rfl: , 10/06/2020 at Unknown time carvedilol (COREG) 6.25 mg tablet, Take 6.25 mg by mouth twice daily with meals., Disp: , Rfl: , 10/07/2020 at Unknown time ticagrelor (BRILINTA) 90 mg tablet, Take 90 mg by mouth., Disp: , Rfl: , 10/07/2020 at Unknown time aspirin 81 mg chewable tablet, 1 tablet by ORAL/FEEDI (more content not included)... Normal [facility] HISTORY PHYSICAL HNO ID: [id number] Author: Yulisa Christianson MD Service: Connected Care Author Type: Physician Type: HANDP Filed: 10/07/2020 10:27 AM Note Text: PROCEDURAL SEDATION HISTORY AND PHYSICAL EXAM SERVICE DATE: 10/07/2020 SERVICE TIME: 10:26 AM Subjective HPI: This is a 65 year old male who presents with I year s/p Ba thrombectomy and B vert ostium stenting PAST ANESTHESIA HISTORY: No history of adverse event PAST MEDICAL HISTORY Diagnosis Date - HTN (hypertension) - Insomnia 09/20/2019 - MAGALIS (obstructive sleep apnea) does not use c-pap - Palpitations - Right ankle pain - SVT (supraventricular tachycardia) (HCC) - Tachycardia PAST SURGICAL HISTORY Procedure Laterality Date - ANKLE SURGERY HX Right 04/27/2016 rt ankle - APPENDECTOMY HX as a child - COLOSTOMY and reversed - HERNIA REPAIR HX - PAST SURGICAL HISTORY OF Right 04/21/2016 REV ANKLE FUSION - PAST SURGICAL HISTORY OF Right 08/08/2017 ANKLE - SVT ABLATION 02/27/2016 EP study, Dr. Baum - TONSILLECTOMY AND ADENOIDECTOMY HX as a child Prior to Admission medications as of 10/07/20 0918 Medication Sig Last Dose Taking traZODone (DESYREL) 50 mg tablet Take 50 mg by mouth daily at bedtime. 10/06/2020 at Unknown time Yes carvedilol (COREG) 6.25 mg tablet Take 6.25 mg by mouth twice daily with meals. 10/07/2020 at Unknown time Yes ticagrelor (BRILINTA) 90 mg tablet Take 90 mg by mouth. 10/07/2020 at Unknown time Yes aspirin 81 mg chewable tablet 1 tablet by ORAL/FEEDING TUBE route once daily. 10/07/2020 at Unknown time Yes atorvastatin (LIPITOR) 40 mg tablet 1 tablet by ORAL/FEEDING TUBE route daily at bedtime. 10/06/2020 at Unknown time Yes amLODIPine (NORVASC) 5 mg tablet Take 1 tablet by mouth once daily. clopidogrel (PLAVIX) 75 mg tablet 1 tablet by ORAL/FEEDING TUBE route once daily for 90 doses. ALLERGIES No Known Allergies Objective PHYSICAL EXAM: The remainder of the physical exam is noncontributory. AIRWAY: Airway Visualization of Uvula: Yes Mouth opening greater than 2 fingerbreadths: Yes Neck Full Range of Motion: Yes LUNGS: Lungs clear to auscultation, Good diaphragmatic excursion CARDIAC: Normal S1 and S2; no rubs, murmurs, or gallops Assessment/Plan ASA Class: ASA Class:: Patient with mild systemic disease Active Problems: * No active hospital problems. * Resolved Problems: * No resolved hospital problems. * Provisional Diagnosis/Treatment Plan: DCA and possible stent angioplasty SEDATION GOAL: Moderate SIGNATURE: Yulisa Christianson MD PATIENT NAME: Michelle Solares DATE: October 07, 2020 TIME: 10:[address] [facility] NURSING PROGon 10-07-2020 NURSING PROG HNO ID: [id number] Author: Zara Torres RN Service: ? Author Type: Registered Nurse Type: Nursing Progress Note Filed: 10/07/2020 9:17 PM Note Text: Upon entering room, it was noted that patient had oozing of his right groin site. Patient was moved back to bed and pressure was held on groin site by REBECCA Reed. VSS. Patient ANOX4. Brianna will continue to monitor. Normal [facility] PreOp/PreProc COVIDon 2020 SARS-CoV-2 (COVID-19) RNA DYLAN+probe Ql (Unsp spec) UPPER RESPIRATORY TRACT SWAB Normal [facility] Comment on above: Performed By: #### P OCOVD #### [facility] [address] [place] [address] SARS-CoV-2 (COVID-19) RNA DYLAN+probe Ql (Unsp spec) Negative for COVID19 (SARS CoV2) by RT-PCR or equivalent method. Normal Negative for COVID19 (SARS CoV2) by RT-PCR or equivalent method. [facility] Comment on above: Result Comment: This test was developed and its performance characteristics determined by [facility] [place]. This test has been authorized by FDA under an Emergency Use Authorization (EUA). This test has been validated in accordance with the FDA's Guidance Document Policy for Diagnostics Testing in Laboratories Certified to Perform High Complexity Testing under CLIA prior to Emergency use Authorization for Coronavirus Disease 2019 during the Public Health Emergency issued on April 21, 2019. Test performed by [facility], [facility] [place], [address] [address]. Performed By: #### P OCOVD #### [facility] [address] [place], [place] [address] Basic Metabolic Panelon 08-0 7-2020 Anion gap [Moles/Vol] 11 mmol/L Normal 9-18 [facility] Comment on above: Performed By: #### B MP #### [facility] [address] [place], [place] [address] Calcium [Mass/Vol] 8.7 mg/dL Normal 8.5-10.2 [facility] Comment on above: Performed By: #### B MP #### [facility] [address] [place], [place] [address] Chloride [Moles/Vol] 106 mmol/L High 97-105 [facility] Comment on above: Performed By: #### B MP #### [facility] [address] [place], [place] [address] CO2 [Moles/Vol] 23 mmol/L Normal 22-[address] [facility] Comment on above: Performed By: #### B MP #### [facility] [address] [place], [place] [address] Creatinine [Mass/Vol] 0.84 mg/dL Normal 0.73-1.22 [facility] Comment on above: Performed By: #### B MP #### [facility] [address] [place], [place] [address] Glucose [Mass/Vol] 95 mg/dL Normal 74-99 [facility] Comment on above: Result Comment: The Canadian Diabetes Association (ADA) provides guidance for cutoff values for fasting glucose and random glucose. The ADA defines fasting as no caloric intake for at least 8 hours.Fasting plasma glucose results between 100 to 125 mg/dL indicate increased risk for diabetes (prediabetes). Fasting plasma glucose results greater than or equal to 126 mg/dL meet the criteria for diagnosis of diabetes. In the absence of unequivocal hyperglycemia, results should be confirmed by repeat testing. In a patient with classic symptoms of hyperglycemia or hyperglycemic crisis, random plasma glucose results greater than or equal to 200 mg/dL meet the criteria for diagnosis of diabetes. Reference: Standards of Medical Care in Diabetes 2016; Canadian Diabetes Association. Diabetes Care. 2016;39(Suppl 1). Performed By: #### B MP #### [facility] [address] [place] [address] Potassium [Moles/Vol] 3.9 mmol/L Normal 3.7-5.1 [facility] Comment on above: Performed By: #### B MP #### [facility] [address] [place] [address] Sodium [Moles/Vol] 140 mmol/L Normal 136-144 [facility] Comment on above: Performed By: #### B MP #### [facility] [address] [place] [address] Urea nitrogen [Mass/Vol] 10 mg/dL Normal 9-24 [facility] Comment on above: Performed By: #### B MP #### [facility] [address] [place] [address] Hemogram/Diffon 09-28-2019 Abs Immature Grans 0.02 thou/cmm Normal 0.00-0.05 [facility] Comment on above: Performed By: #### C BCD1 #### [place] [address] Abs Neut (ANC) 4.46 thou/cmm Normal 1.78-5.38 [facility] Comment on above: Performed By: #### C BCD1 #### [place] [address] Abs. Baso 0.05 thou/cmm Normal 0.01-0.08 [facility] Comment on above: Performed By: #### C BCD1 #### [place] [address] Abs. [place] 0.56 thou/cmm Normal 0.30-0.82 [facility] Comment on above: Performed By: #### C BCD1 #### [place] [address] Basophils/100 WBC (Bld) 0.7 % Normal [facility] Comment on above: Performed By: #### C BCD1 #### [place] [address] Eosinophils (Bld) [#/Vol] 0.15 10*3/uL Normal 0.04-0.54 [facility] Comment on above: Performed By: #### C BCD1 #### [facility] [address] [place], [place] [address] Eosinophils/100 WBC (Bld) 2.1 % Normal [facility] Comment on above: Performed By: #### C BCD1 #### [facility] [address] [place] [address] Erythrocyte distribution width (RBC) [Ratio] 13.0 % Normal 11.6-14.4 [facility] Comment on above: Performed By: #### C BCD1 #### [facility] [address] [place] [address] Hematocrit (Bld) [Volume fraction] 38.2 % Low 40.1-51.0 [facility] Comment on above: Performed By: #### C BCD1 #### [facility] [address] [place] [address] Hemoglobin (Bld) [Mass/Vol] 12.5 g/dL Low 13.7-17.5 [facility] Comment on above: Performed By: #### C BCD1 #### [facility] [address] [place] [address] Immature Grans 0.30 % Normal [facility] Comment on above: Performed By: #### C BCD1 #### [facility] [address] [place] [address] Lymphocytes (Bld) [#/Vol] 1.95 10*3/uL Normal 0.84-2.85 [facility] Comment on above: Performed By: #### C BCD1 #### [facility] [address] [place] [address] Lymphocytes/100 WBC (Bld) 27.1 % Normal [facility] Comment on above: Performed By: #### C BCD1 #### [facility] [address] [place] [address] MCH (RBC) [Entitic mass] 27.8 pg Normal 25.7-32.2 [facility] Comment on above: Performed By: #### C BCD1 #### [facility] [address] [place] [address] MCHC 32.7 % Normal 32.3-36.5 [facility] Comment on above: Performed By: #### C BCD1 #### [facility] [address] [place] [address] MCV (RBC) [Entitic vol] 84.9 fL Normal 83.2-95.6 [facility] Comment on above: Performed By: #### C BCD1 #### [facility] [address] [place] [address] Monocytes/100 WBC (Bld) 7.8 % Normal [facility] Comment on above: Performed By: #### C BCD1 #### [facility] [address] [place] [address] Platelet mean volume (Bld) [Entitic vol] 11.6 fL Normal 8.7-12.0 [facility] Comment on above: Performed By: #### C BCD1 #### [facility] [address] [place] [address] Platelets (Bld) [#/Vol] 195 10*3/uL Normal 141-365 [facility] Comment on above: Performed By: #### C BCD1 #### [facility] [address] [place] [address] RBC 4.50 mil/cmm Low 4.63-6.08 [facility] Comment on above: Performed By: #### C BCD1 #### [facility] [address] [place] [address] RDW SD 39.5 fl Normal 36.1-45.8 [facility] Comment on above: Performed By: #### C BCD1 #### [facility] [address] [place] [address] Seg Neutrophil 62.0 % Normal [facility] Comment on above: Performed By: #### C BCD1 #### [facility] [address] [place] [address] WBC (Bld) [#/Vol] 7.19 10*3/uL Normal 4.23-9.07 [facility] Comment on above: Performed By: #### C BCD1 #### [facility] [address] [place], [place] [address] MDRD GFRon 09-28-2019 GFR/1.73 sq M.predicted among non-blacks MDRD (S/P/Bld) [Vol rate/Area] mL/min/{1.73_m2} Normal >60mL/min/1.73m 2 [facility] Comment on above: Result Comment: If t he patient is , multiply the result by 1.210. Performed By: #### G FR #### [facility] [address] [place] [id number] Basic Metabolic Panelon 08 Anion gap [Moles/Vol] 11 mmol/L Normal 9-18 [facility] Comment on above: Performed By: #### B MP #### [place] [address] Calcium [Mass/Vol] 8.8 mg/dL Normal 8.5-10.2 [facility] Comment on above: Performed By: #### B MP #### [place] [address] Chloride [Moles/Vol] 107 mmol/L High 97-105 [facility] Comment on above: Performed By: #### B MP #### [place] [address] CO2 [Moles/Vol] 23 mmol/L Normal 22-[address] [facility] Comment on above: Performed By: #### B MP #### [place] [address] Creatinine [Mass/Vol] 0.80 mg/dL Normal 0.73-1.22 [facility] Comment on above: Performed By: #### B MP #### [place] [id number] Glucose [Mass/Vol] 95 mg/dL Normal 74-99 [facility] Comment on above: Result Comment: The Canadian Diabetes Association (ADA) provides guidance for cutoff values for fasting glucose and random glucose. The ADA defines fasting as no caloric intake for at least 8 hours.Fasting plasma glucose results between 100 to 125 mg/dL indicate increased risk for diabetes (prediabetes). Fasting plasma glucose results greater than or equal to 126 mg/dL meet the criteria for diagnosis of diabetes. In the absence of unequivocal hyperglycemia, results should be confirmed by repeat testing. In a patient with classic symptoms of hyperglycemia or hyperglycemic crisis, random plasma glucose results greater than or equal to 200 mg/dL meet the criteria for diagnosis of diabetes. Reference: Standards of Medical Care in Diabetes 2016; Canadian Diabetes Association. Diabetes Care. 2016;39(Suppl 1). Performed By: #### B MP #### [place] [address] Potassium [Moles/Vol] 3.8 mmol/L Normal 3.7-5.1 [facility] Comment on above: Performed By: #### B MP #### [place] [address] Sodium [Moles/Vol] 141 mmol/L Normal 136-144 [facility] Comment on above: Performed By: #### B MP #### [place] [address] Urea nitrogen [Mass/Vol] 9 mg/dL Normal 9-24 [facility] Comment on above: Performed By: #### B MP #### [place] [address] Hemogram/Diffon 09-27-2019 Abs Immature Grans 0.03 thou/cmm Normal 0.00-0.05 [facility] Comment on above: Performed By: #### G FR #### [place] [address] Abs Neut (ANC) 5.06 thou/cmm Normal 1.78-5.38 [facility] Comment on above: Performed By: #### G FR #### [place] [address] Abs. Baso 0.03 thou/cmm Normal 0.01-0.08 [facility] Comment on above: Performed By: #### G FR #### [place] [address] Abs. [place] 0.75 thou/cmm Normal 0.30-0.82 [facility] Comment on above: Performed By: #### G FR #### [facility] [address] [place], [place] [address] Basophils/100 WBC (Bld) 0.4 % Normal [facility] Comment on above: Performed By: #### G FR #### [facility] [address] [place], [place] [address] Eosinophils (Bld) [#/Vol] 0.17 10*3/uL Normal 0.04-0.54 [facility] Comment on above: Performed By: #### G FR #### [facility] [address] [place], [place] [address] Eosinophils/100 WBC (Bld) 2.1 % Normal [facility] Comment on above: Performed By: #### G FR #### [facility] [address] [place] [address] Erythrocyte distribution width (RBC) [Ratio] 12.8 % Normal 11.6-14.4 [facility] Comment on above: Performed By: #### G FR #### [facility] [address] [place], [place] [address] Hematocrit (Bld) [Volume fraction] 39.0 % Low 40.1-51.0 [facility] Comment on above: Performed By: #### G FR #### [facility] [address] [place], [place] [address] Hemoglobin (Bld) [Mass/Vol] 12.6 g/dL Low 13.7-17.5 [facility] Comment on above: Performed By: #### G FR #### [facility] [address] [place], [place] [address] Immature Grans 0.40 % Normal [facility] Comment on above: Performed By: #### G FR #### [facility] [address] [place], [place] [address] Lymphocytes (Bld) [#/Vol] 2.05 10*3/uL Normal 0.84-2.85 [facility] Comment on above: Performed By: #### G FR #### [facility] [address] [place], [place] [address] Lymphocytes/100 WBC (Bld) 25.3 % Normal [facility] Comment on above: Performed By: #### G FR #### [facility] [address] [place] [address] MCH (RBC) [Entitic mass] 27.6 pg Normal 25.7-32.2 [facility] Comment on above: Performed By: #### G FR #### [facility] [address] [place] [address] MCHC 32.3 % Normal 32.3-36.5 [facility] Comment on above: Performed By: #### G FR #### [facility] [address] [place] [address] MCV (RBC) [Entitic vol] 85.3 fL Normal 83.2-95.6 [facility] Comment on above: Performed By: #### G FR #### [place] [address] Monocytes/100 WBC (Bld) 9.3 % Normal [facility] Comment on above: Performed By: #### G FR #### [facility] [address] [place] [address] Platelet mean volume (Bld) [Entitic vol] 11.3 fL Normal 8.7-12.0 [facility] Comment on above: Performed By: #### G FR #### [place] [address] Platelets (Bld) [#/Vol] 201 10*3/uL Normal 141-365 [facility] [facility] Comment on above: Performed By: #### G FR #### [facility] [address] [place] [address] RBC 4.57 mil/cmm Low 4.63-6.08 [facility] Comment on above: Performed By: #### G FR #### [facility] [address] [place] [address] RDW SD 38.3 fl Normal 36.1-45.8 [facility] Comment on above: Performed By: #### G FR #### [place] [address] Seg Neutrophil 62.5 % Normal [facility] Comment on above: Performed By: #### G FR #### [facility] [address] [place] [address] WBC (Bld) [#/Vol] 8.09 10*3/uL Normal 4.23-9.07 [facility] Comment on above: Performed By: #### G FR #### [facility] [address] [place] [address] Basic Metabolic Panelon 08-0 -2019 Anion gap [Moles/Vol] 14 mmol/L Normal 9-18 [facility] Comment on above: Performed By: #### B MP #### [facility] [address] [place] [address] Calcium [Mass/Vol] 9.0 mg/dL Normal 8.5-10.2 [facility] Comment on above: Performed By: #### B MP #### [facility] [address] [place] [address] Chloride [Moles/Vol] 106 mmol/L High 97-105 [facility] Comment on above: Performed By: #### B MP #### [facility] [address] [place] [address] CO2 [Moles/Vol] 23 mmol/L Normal 22-[address] [facility] Comment on above: Performed By: #### B MP #### [facility] [address] [place] [address] Creatinine [Mass/Vol] 0.79 mg/dL Normal 0.73-1.22 [facility] Comment on above: Performed By: #### B MP #### [facility] [address] [place] [address] Glucose [Mass/Vol] 100 mg/dL High 74-99 [facility] Comment on above: Result Comment: The [place] Diabetes Association (ADA) provides guidance for cutoff values for fasting glucose and random glucose. The ADA defines fasting as no caloric intake for at least 8 hours.Fasting plasma glucose results between 100 to 125 mg/dL indicate increased risk for diabetes (prediabetes). Fasting plasma glucose results greater than or equal to 126 mg/dL meet the criteria for diagnosis of diabetes. In the absence of unequivocal hyperglycemia, results should be confirmed by repeat testing. In a patient with classic symptoms of hyperglycemia or hyperglycemic crisis, random plasma glucose results greater than or equal to 200 mg/dL meet the criteria for diagnosis of diabetes. Reference: Standards of Medical Care in Diabetes 2016; Canadian Diabetes Association. Diabetes Care. 2016;39(Suppl 1). Performed By: #### B MP #### [facility] [address] [place] [address] Potassium [Moles/Vol] 3.8 mmol/L Normal 3.7-5.1 [facility] Comment on above: Performed By: #### B MP #### [place] [address] Sodium [Moles/Vol] 143 mmol/L Normal 136-144 [facility] Comment on above: Performed By: #### B MP #### [place] [address] Urea nitrogen [Mass/Vol] 11 mg/dL Normal 9-24 [facility] Comment on above: Performed By: #### B MP #### [facility] [address] [place] [address] Hemogram/Diffon 09-26-2019 Abs Immature Grans 0.03 thou/cmm Normal 0.00-0.05 [facility] Comment on above: Performed By: #### C BCD1 #### [place] [address] Abs Neut (ANC) 5.07 thou/cmm Normal 1.78-5.38 [facility] Comment on above: Performed By: #### C BCD1 #### [place] [address] Abs. Baso 0.05 thou/cmm Normal 0.01-0.08 [facility] Comment on above: Performed By: #### C BCD1 #### [facility] [address] [place] [address] Abs. [place] 0.68 thou/cmm Normal 0.30-0.82 [facility] Comment on above: Performed By: #### C BCD1 #### [address] [place], [place] [address] Basophils/100 WBC (Bld) 0.6 % Normal [facility] Comment on above: Performed By: #### C BCD1 #### [facility] [address] [place], [place] [address] Eosinophils (Bld) [#/Vol] 0.18 10*3/uL Normal 0.04-0.54 [facility] Comment on above: Performed By: #### C BCD1 #### [facility] [address] [place], [place] [address] Eosinophils/100 WBC (Bld) 2.2 % Normal [facility] Comment on above: Performed By: #### C BCD1 #### [facility] [address] [place], [place] [address] Erythrocyte distribution width (RBC) [Ratio] 12.5 % Normal 11.6-14.4 [facility] Comment on above: Performed By: #### C BCD1 #### [facility] [address] [place], [place] [address] Hematocrit (Bld) [Volume fraction] 39.8 % Low 40.1-51.0 [facility] Comment on above: Performed By: #### C BCD1 #### [facility] [address] [place], [place] [address] Hemoglobin (Bld) [Mass/Vol] 13.1 g/dL Low 13.7-17.5 [facility] Comment on above: Performed By: #### C BCD1 #### [facility] [address] [place], [place] [address] Immature Grans 0.40 % Normal [facility] Comment on above: Performed By: #### C BCD1 #### [facility] [address] [place], [place] [address] Lymphocytes (Bld) [#/Vol] 2.35 10*3/uL Normal 0.84-2.85 [facility] Comment on above: Performed By: #### C BCD1 #### [facility] [address] [place], [place] [address] Lymphocytes/100 WBC (Bld) 28.1 % Normal [facility] Comment on above: Performed By: #### C MADONNA #### [facility] [address] [place], [place] [address] MCH (RBC) [Entitic mass] 27.9 pg Normal 25.7-32.2 [facility] Comment on above: Performed By: #### C MADONNA #### [facility] [address] [place], [place] [address] MCHC 32.9 % Normal 32.3-36.5 [facility] Comment on above: Performed By: #### C KRISD1 #### [facility] [address] [place] [address] MCV (RBC) [Entitic vol] 84.7 fL Normal 83.2-95.6 [facility] Comment on above: Performed By: #### C MADONNA #### [facility] [address] [place] [address] Monocytes/100 WBC (Bld) 8.1 % Normal [facility] Comment on above: Performed By: #### C MADONNA #### [facility] [address] [place] [address] Platelet mean volume (Bld) [Entitic vol] 11.2 fL Normal 8.7-12.0 [facility] Comment on above: Performed By: #### C MADONNA #### [facility] [address] [place] [address] Platelets (Bld) [#/Vol] 197 10*3/uL Normal 141-365 [facility] Comment on above: Performed By: #### C MADONNA #### [facility] [address] [place] [address] RBC 4.70 mil/cmm Normal 4.63-6.08 [facility] Comment on above: Performed By: #### C MADONNA #### [facility] [address] [place] [address] RDW SD 37.7 fl Normal 36.1-45.8 [facility] Comment on above: Performed By: #### C MADONNA #### [facility] [address] [place] [address] Seg Neutrophil 60.6 % Normal [facility] Comment on above: Performed By: #### C BCD1 #### [facility] [address] [place], [place] [address] WBC (Bld) [#/Vol] 8.36 10*3/uL Normal 4.23-9.07 [facility] Comment on above: Performed By: #### C BCD1 #### [facility] [address] [place] [address] Basic Metabolic Panelon 08-0 4-2020 Anion gap [Moles/Vol] 10 mmol/L Normal 9-18 [facility] Comment on above: Performed By: #### B MP #### [facility] [address] [place] [address] Calcium [Mass/Vol] 8.7 mg/dL Normal 8.5-10.2 [facility] Comment on above: Performed By: #### B MP #### [facility] [address] [place] [address] Chloride [Moles/Vol] 109 mmol/L High 97-105 [facility] Comment on above: Performed By: #### B MP #### [facility] [address] [place] [address] CO2 [Moles/Vol] 24 mmol/L Normal 22-[address] [facility] Comment on above: Performed By: #### B MP #### [facility] [address] [place], [place] [address] Creatinine [Mass/Vol] 0.74 mg/dL Normal 0.73-1.22 [facility] Comment on above: Performed By: #### B MP #### [facility] [address] [place] [address] Glucose [Mass/Vol] 93 mg/dL Normal 74-99 [facility] Comment on above: Result Comment: The [place] Diabetes Association (ADA) provides guidance for cutoff values for fasting glucose and random glucose. The ADA defines fasting as no caloric intake for at least 8 hours.Fasting plasma glucose results between 100 to 125 mg/dL indicate increased risk for diabetes (prediabetes). Fasting plasma glucose results greater than or equal to 126 mg/dL meet the criteria for diagnosis of diabetes. In the absence of unequivocal hyperglycemia, results should be confirmed by repeat testing. In a patient with classic symptoms of hyperglycemia or hyperglycemic crisis, random plasma glucose results greater than or equal to 200 mg/dL meet the criteria for diagnosis of diabetes. Reference: Standards of Medical Care in Diabetes 2016; [place] Diabetes Association. Diabetes Care. 2016;39(Suppl 1). Performed By: #### B MP #### [facility] [address] [place] [address] Potassium [Moles/Vol] 3.8 mmol/L Normal 3.7-5.1 [facility] Comment on above: Performed By: #### B MP #### [facility] [address] [place] [address] Sodium [Moles/Vol] 143 mmol/L Normal 136-144 [facility] Comment on above: Performed By: #### B MP #### [facility] [address] [place] [address] Urea nitrogen [Mass/Vol] 13 mg/dL Normal 9-24 [facility] Comment on above: Performed By: #### B MP #### [facility] [address] [place] [address] Hemogram/Diffon 09-25-2019 Abs Immature Grans 0.02 thou/cmm Normal 0.00-0.05 [facility] Comment on above: Performed By: #### C BCD1 #### [facility] [address] [place] [address] Abs Neut (ANC) 4.31 thou/cmm Normal 1.78-5.38 [facility] Comment on above: Performed By: #### C BCD1 #### [facility] [address] [place] [address] Abs. Baso 0.04 thou/cmm Normal 0.01-0.08 [facility] Comment on above: Performed By: #### C BCD1 #### [facility] [address] [place] [address] Abs. [place] 0.62 thou/cmm Normal 0.30-0.82 [facility] Comment on above: Performed By: #### C BCD1 #### [facility] [address] [place], [place] [address] Basophils/100 WBC (Bld) 0.5 % Normal [facility] Comment on above: Performed By: #### C BCD1 #### [facility] [address] [place], [place] [address] Eosinophils (Bld) [#/Vol] 0.12 10*3/uL Normal 0.04-0.54 [facility] Comment on above: Performed By: #### C BCD1 #### [facility] [address] [place], [place] [address] Eosinophils/100 WBC (Bld) 1.6 % Normal [facility] Comment on above: Performed By: #### C BCD1 #### [facility] [address] [place], [place] [address] Erythrocyte distribution width (RBC) [Ratio] 12.8 % Normal 11.6-14.4 [facility] Comment on above: Performed By: #### C BCD1 #### [facility] [address] [place], [place] [address] Hematocrit (Bld) [Volume fraction] 36.6 % Low 40.1-51.0 [facility] Comment on above: Performed By: #### C BCD1 #### [facility] [address] [place], [place] [address] Hemoglobin (Bld) [Mass/Vol] 11.9 g/dL Low 13.7-17.5 [facility] Comment on above: Performed By: #### C BCD1 #### [facility] [address] [place], [place] [address] Immature Grans 0.30 % Normal [facility] Comment on above: Performed By: #### C BCD1 #### [facility] [address] [place], [place] [address] Lymphocytes (Bld) [#/Vol] 2.20 10*3/uL Normal 0.84-2.85 [facility] Comment on above: Performed By: #### C BCD1 #### [facility] [address] [place], [place] [address] Lymphocytes/100 WBC (Bld) 30.1 % Normal [facility] Comment on above: Performed By: #### C BCD1 #### [facility] [address] [place] [address] MCH (RBC) [Entitic mass] 27.8 pg Normal 25.7-32.2 [facility] Comment on above: Performed By: #### C BCD1 #### [facility] [address] [place] [address] MCHC 32.5 % Normal 32.3-36.5 [facility] Comment on above: Performed By: #### C BCD1 #### [facility] [address] [place] [address] MCV (RBC) [Entitic vol] 85.5 fL Normal 83.2-95.6 [facility] Comment on above: Performed By: #### C MADONNA #### [facility] [address] [place] [address] Monocytes/100 WBC (Bld) 8.5 % Normal [facility] Comment on above: Performed By: #### C MADONNA #### [facility] [address] [place] [address] Platelet mean volume (Bld) [Entitic vol] 11.5 fL Normal 8.7-12.0 [facility] Comment on above: Performed By: #### C MADONNA #### [facility] [address] [place] [address] Platelets (Bld) [#/Vol] 162 10*3/uL Normal 141-365 [facility] Comment on above: Performed By: #### C BCPedro #### [facility] [address] [place] [address] RBC 4.28 mil/cmm Low 4.63-6.08 [facility] Comment on above: Performed By: #### C BCD1 #### [facility] [address] [place] [address] RDW SD 39.0 fl Normal 36.1-45.8 [facility] Comment on above: Performed By: #### C MADONNA #### [facility] [address] [place] [address] Seg Neutrophil 59.0 % Normal [facility] Comment on above: Performed By: #### C BCD1 #### [facility] [address] [place], [place] [address] WBC (Bld) [#/Vol] 7.31 10*3/uL Normal 4.23-9.07 [facility] Comment on above: Performed By: #### C BCD1 #### [facility] [address] [place], [place] [address] Basic Metabolic Panelon 08-0 3-2020 Anion gap [Moles/Vol] 10 mmol/L Normal 9-18 [facility] Comment on above: Performed By: #### B MP #### [facility] [address] [place], [place] [address] Calcium [Mass/Vol] 8.9 mg/dL Normal 8.5-10.2 [facility] Comment on above: Performed By: #### B MP #### [facility] [address] [place], [place] [address] Chloride [Moles/Vol] 109 mmol/L High 97-105 [facility] Comment on above: Performed By: #### B MP #### [facility] [address] [place] [address] CO2 [Moles/Vol] 25 mmol/L Normal 22-[address] [facility] Comment on above: Performed By: #### B MP #### [facility] [address] [place], [place] [address] Creatinine [Mass/Vol] 0.82 mg/dL Normal 0.73-1.22 [facility] Comment on above: Performed By: #### B MP #### [facility] [address] [place], [place] [address] Glucose [Mass/Vol] 99 mg/dL Normal 74-99 [facility] Comment on above: Result Comment: The [place] Diabetes Association (ADA) provides guidance for cutoff values for fasting glucose and random glucose. The ADA defines fasting as no caloric intake for at least 8 hours.Fasting plasma glucose results between 100 to 125 mg/dL indicate increased risk for diabetes (prediabetes). Fasting plasma glucose results greater than or equal to 126 mg/dL meet the criteria for diagnosis of diabetes. In the absence of unequivocal hyperglycemia, results should be confirmed by repeat testing. In a patient with classic symptoms of hyperglycemia or hyperglycemic crisis, random plasma glucose results greater than or equal to 200 mg/dL meet the criteria for diagnosis of diabetes. Reference: Standards of Medical Care in Diabetes 2016; Canadian Diabetes Association. Diabetes Care. 2016;39(Suppl 1). Performed By: #### B MP #### [facility] [address] [place] [address] Potassium [Moles/Vol] 3.7 mmol/L Normal 3.7-5.1 [facility] Comment on above: Performed By: #### B MP #### [facility] [address] [place] [address] Sodium [Moles/Vol] 144 mmol/L Normal 136-144 [facility] Comment on above: Performed By: #### B MP #### [facility] [address] [place] [address] Urea nitrogen [Mass/Vol] 13 mg/dL Normal 9-24 [facility] Comment on above: Performed By: #### B MP #### [facility] [address] [place] [address] Hemogram/Diffon 09-24-2019 Abs Immature Grans 0.04 thou/cmm Normal 0.00-0.05 [facility] Comment on above: Performed By: #### C BCD1 #### [facility] [address] [place] [address] Abs Neut (ANC) 5.87 thou/cmm High 1.78-5.38 [facility] Comment on above: Performed By: #### C BCD1 #### [facility] [address] [place] [address] Abs. Baso 0.04 thou/cmm Normal 0.01-0.08 [facility] Comment on above: Performed By: #### C BCD1 #### [facility] [address] [place] [address] Abs. [place] 0.80 thou/cmm Normal 0.30-0.82 [facility] Comment on above: Performed By: #### C BCD1 #### [place] [address] Basophils/100 WBC (Bld) 0.5 % Normal [facility] Comment on above: Performed By: #### C BCD1 #### [facility] [address] [place], [place] [address] Eosinophils (Bld) [#/Vol] 0.08 10*3/uL Normal 0.04-0.54 [facility] Comment on above: Performed By: #### C BCD1 #### [facility] [address] [place], [place] [address] Eosinophils/100 WBC (Bld) 0.9 % Normal [facility] Comment on above: Performed By: #### C BCD1 #### [facility] [address] [place] [address] Erythrocyte distribution width (RBC) [Ratio] 12.3 % Normal 11.6-14.4 [facility] Comment on above: Performed By: #### C BCD1 #### [facility] [address] [place] [address] Hematocrit (Bld) [Volume fraction] 37.3 % Low 40.1-51.0 [facility] Comment on above: Performed By: #### C BCD1 #### [facility] [address] [place] [address] Hemoglobin (Bld) [Mass/Vol] 12.4 g/dL Low 13.7-17.5 [facility] Comment on above: Performed By: #### C BCD1 #### [facility] [address] [place] [address] Immature Grans 0.50 % Normal [facility] Comment on above: Performed By: #### C BCD1 #### [facility] [address] [place], [place] [address] Lymphocytes (Bld) [#/Vol] 2.03 10*3/uL Normal 0.84-2.85 [facility] Comment on above: Performed By: #### C BCD1 #### [facility] [address] [place], [place] [address] Lymphocytes/100 WBC (Bld) 22.9 % Normal [facility] Comment on above: Performed By: #### C BCD1 #### [facility] [address] [place] [address] MCH (RBC) [Entitic mass] 28.1 pg Normal 25.7-32.2 [facility] Comment on above: Performed By: #### C BCD1 #### [facility] [address] [place] [address] MCHC 33.2 % Normal 32.3-36.5 [facility] Comment on above: Performed By: #### C BCD1 #### [facility] [address] [place] [address] MCV (RBC) [Entitic vol] 84.6 fL Normal 83.2-95.6 [facility] Comment on above: Performed By: #### C MADONNA #### [facility] [address] [place] [address] Monocytes/100 WBC (Bld) 9.0 % Normal [facility] Comment on above: Performed By: #### C MADONNA #### [facility] [address] [place] [address] Platelet mean volume (Bld) [Entitic vol] 11.4 fL Normal 8.7-12.0 [facility] Comment on above: Performed By: #### C MADONNA #### [facility] [address] [place] [address] Platelets (Bld) [#/Vol] 179 10*3/uL Normal 141-365 [facility] Comment on above: Performed By: #### C BCPedro #### [facility] [address] [place] [address] RBC 4.41 mil/cmm Low 4.63-6.08 [facility] Comment on above: Performed By: #### C BCD1 #### [facility] [address] [place] [address] RDW SD 37.2 fl Normal 36.1-45.8 [facility] Comment on above: Performed By: #### C MADONNA #### [facility] [address] [place] [address] Seg Neutrophil 66.2 % Normal [facility] Comment on above: Performed By: #### C BCPedro #### [facility] [address] [place], [place] [address] WBC (Bld) [#/Vol] 8.86 10*3/uL Normal 4.23-9.07 [facility] Comment on above: Performed By: #### C BCD1 #### [facility] [address] [place], [place] [address] LIPIDon 09-20-2019 Cholesterol [Mass/Vol] 232 mg/dL High 0-200 [facility] Comment on above: Result Comment: Chol esterol Reference Interval: Less than 200 Desirable 200-239 Borderline high risk 240 and above High risk Performed By: #### L IPID #### [address] [address] Cholesterol in HDL [Mass/Vol] 37 mg/dL Low 40-60 [facility] Comment on above: Performed By: #### L IPID #### [address] [address] Cholesterol in LDL [Mass/Vol] 147 mg/dL High 0-130 [facility] Comment on above: Performed By: #### L IPID #### [address] [address] Triglyceride [Mass/Vol] 238 mg/dL High 0-150 [facility] Comment on above: Result Comment: Trig lyceride Reference Interval: Less than 150 Normal 150-199 Borderline high risk 200-499 High risk 500 or higher Very high risk Performed By: #### L IPID #### [address] [address] MRA HEAD W/O CONTRASTon 08-23 MRA HEAD W/O CONTRAST ORIGINAL MRA HEAD W/O CONTRAST CLINICAL STATEMENT: TIA. TECHNIQUE: [id number] MRA of the head. Source data and maximum intensity projections (MIPs) were reviewed. COMPARISON: MRI brain and MRA neck today. FINDINGS: There is no appreciable flow in the V4 segments of the bilateral vertebral arteries, no appreciable flow is seen in the LEFT CORRECTIONAL THERAPY TEACHER or basilar artery. The proximal MCAs and ACAs are patent. Anterior communicating artery is unremarkable. RIGHT CORRECTIONAL THERAPY TEACHER has flow signal in it. IMPRESSION: No appreciable flow in the V4 segments of the bilateral vertebral arteries, the basilar artery or LEFT CORRECTIONAL THERAPY TEACHER. I have personally reviewed the images of this examination and agree with the resident's findings and interpretation. Interpreted By: Shaun Nolen MD Preliminary Report By: Kiko Domínguez MD Electronically Signed By: Shaun Nolen MD Dictated Date: 09/19/2019 8:55:18 PM Prelim Date: 09/19/2019 8:59:39 PM Sign Date: 09/19/2019 10:15:46 PM Ordering Provider:Alireza Thomas [facility] ([place] MRA NECK W/ + W/O CONTRASTon 09-20-2019 MRA NECK W/ + W/O CONTRAST ORIGINAL MRA NECK W/ + W/O CONTRAST CLINICAL STATEMENT: TIA TECHNIQUE: 2D [id number] MRA of the neck with MIPs. Pre-contrast and post-contrast volumetric T1-w arterial phase images of the neck and aortic arch with maximum intensity projections (MIPs) of the subtracted dataset. Intravenous contrast material was administered for the examination. Where applicable, evaluation of ICA stenosis was performed using NASCET-like criteria, where the site of greatest stenosis is compared to the diameter of the ICA distal to the stenosis at a point where the ICA harrison become parallel. COMPARISON: MRI head and MRA head today. FINDINGS: NONCONTRAST MRA: There is normal flow-related signal in the imaged portions of the bilateral common and internal carotid arteries without flow gap or post-stenotic dilatation to indicate a severe stenosis. There is loss of flow in the distal vertebral arteries and proximal basilar artery. CONTRAST-ENHANCED MRA: The origins of the innominate, bilateral common carotid, bilateral subclavian, and bilateral vertebral arteries demonstrate no significant stenosis. There is no significant internal carotid artery (ICA) stenosis. The external carotid arteries are patent. There is no contrast enhancement within the distal LEFT and RIGHT vertebral arteries (the V4 segments) in the proximal basilar artery. More distal basilar artery and SCA's and neurology tech enhance. IMPRESSION: No appreciable flow in the bilateral V4 segments or proximal basilar artery. I have personally reviewed the images of this examination and agree with the resident's findings and interpretation. Interpreted By: Shaun Nolen MD Preliminary Report By: Kiko Domínguez MD Electronically Signed By: Shaun Nolen MD Dictated Date: 09/19/2019 8:40:58 PM Prelim Date: 09/19/2019 8:59:42 PM Sign Date: 09/19/2019 10:15:19 PM Ordering Provider:Alireza Jacekjavon [facility] ([place]) MRI BRAIN W/ + W/O CONTRASTo n 09-20-2019 MRI BRAIN W/ + W/O CONTRAST ORIGINAL MRI BRAIN W/ + W/O CONTRAST Clinical Statement: stroke , progressive symptoms over 2 weeks TECHNIQUE: Multiplanar, multisequence imaging of the brain was performed before and after the administration of IV contrast. COMPARISON: MRA head and neck performed concurrently FINDINGS: Stable diffusion restriction is seen in both the occipital lobes and to a more confluent extent in the RIGHT cerebellar lobe. There are also a few tiny areas of diffusion restriction in the more medial RIGHT cerebellar hemisphere as well as in the medial aspect of the LEFT cerebellar hemisphere. There is irregular restricted diffusion in the medial temporal lobes on both sides. The axial postcontrast exam shows some stippled enhancement of the occipital lobe infarcts. Hyperintense signal seen on the last couple of slices through the upper cervical cord is likely artifact, no diffusion abnormality corresponds to this area. There is various T2 hyperintensity associated with these areas, most prominently in the LEFT occipital lobe. Scattered FLAIR hyperintensities in the cerebral white matter are nonspecific but statistically most consistent with mild chronic microvascular angiopathy. Abnormal signal in the LEFT vertebral artery and basilar artery correlates with thrombus. Scattered foci of white matter hypoattenuation are noted in the cerebral white matter, this is nonspecific but most likely represents mild chronic microvascular angiopathy. There is no mass, or abnormal extra-axial fluid collection. No leptomeningeal enhancement. IMPRESSION: Posterior circulation Acute/recent infarcts involving the occipital lobes, the RIGHT cerebellar lobe, hippocampal formations, and to a lesser extent the LEFT cerebellar lobe. Subtle stippled enhancement of the occipital lobe infarcts suggest entrance into subacute phase of those specific infarcts. Abnormal flow related signal within the LEFT vertebral artery and basilar artery, please refer to the MRA head and neck for further details. Kiko Domínguez MD called these results to Simone,patient's nurse, on 09/19/2019 9:04 PM who stated this information would be passed along to the patient's physician. I have personally reviewed the images of this examination and agree with the resident's findings and interpretation. Interpreted By: Shaun Nolen MD Preliminary Report By: Kiko Domínguez MD Electronically Signed By: Shaun Nolen MD Dictated Date: 09/19/2019 8:30:17 PM Prelim Date: 09/19/2019 8:59:46 PM Sign Date: 09/19/2019 10:13:53 PM Ordering Provider:Alireza Thomas [facility] ([place]) .Auto Diffon 09-19-2019 Ammonia (P) [Mass/Vol] 0.50 10 3/mcL Normal 0.15-1.00 [facility] ([place]) Comment on above: Performed By: #### A RASHMI, CBC, ADIFF, GFR #### [place] [address] #### TROP, BMP #### [address] [address] Basophils (Bld) [#/Vol] 0.00 10 3/mcL Normal 0.00-0.19 [facility] ([place]) Comment on above: Performed By: #### A RASHMI, CBC, ADIFF, GFR #### [place] [address] #### TROP, BMP #### [address] [address] Basophils/100 WBC (Bld) 0.4 % Normal 0.0-2.5 [facility] ([place] Comment on above: Performed By: #### A RASHMI, CBC, ADIFF, GFR #### [place] [address] #### TROP, BMP #### [address] [address] Eosinophils (Bld) [#/Vol] 0.00 10 3/mcL Normal 0.00-0.40 [facility] ([place]) Comment on above: Performed By: #### A RASHMI, CBC, ADIFF, GFR #### [place] [address] #### TROP, BMP #### [address] [address] Eosinophils/100 WBC (Bld) 0.5 % Normal 0.0-7.0 [facility] ([place] Comment on above: Performed By: #### A RASHMI, CBC, ADIFF, GFR #### [address] [address] #### TROP, BMP #### [address] [address] Lymphocytes (Bld) [#/Vol] 1.50 10 3/mcL Normal 0.77-3.85 [facility] ([place]) Comment on above: Performed By: #### A RASHMI, CBC, ADIFF, GFR #### [place] [address] #### TROP, BMP #### [address] [address] Lymphocytes/100 WBC (Bld) 15.7 % Normal 10.0-50.0 [facility] ([place]) Comment on above: Performed By: #### A RASHMI, CBC, ADIFF, GFR #### [place] [address] #### TROP, BMP #### [address] [address] Monocytes/100 WBC (Bld) 5.3 % Normal 1.7-13.0 [facility] ([place]) Comment on above: Performed By: #### A RASHMI, CBC, ADIFF, GFR #### [address] [address] #### TROP, BMP #### [address] [address] Neutrophils/100 WBC (Bld) 78.1 % Normal 37.0-80.0 [facility] ([place]) Comment on above: Performed By: #### A RASHMI, CBC, ADIFF, GFR #### [address] [address] #### TROP, BMP #### [address] [address] .GFRon 09-19-2019 GFR Non- 76 ml/min/1.73sqm Normal [facility] ([place]) Comment on above: Result Comment: GFR Population mean for , Non- Americans Ages 20-29 = 116 mL/min/1.73 sq.m. Ages 30-39 = 107 mL/min/1.73 sq.m. Ages 40-49 = 99 mL/min/1.73 sq.m. Ages 50-59 = 93 mL/min/1.73 sq.m. Ages 60-69 = 85 mL/min/1.73 sq.m. Ages 70+ = 75 mL/min/1.73 sq.m. Chronic Kidney Disease: Less than 60 mL/min/1.73 square meters End Stage Renal Disease: Less than 15 mL/min/1.73 square meters Performed By: #### A RASHMI, CBC, ADIFF, GFR #### [address] [address] #### TROP, BMP #### [address] [address] GFR 92 ml/min/1.73sqm Normal [facility] ([place]) Comment on above: Result Comment: GFR Population mean for , Non- Americans Ages 20-29 = 116 mL/min/1.73 sq.m. Ages 30-39 = 107 mL/min/1.73 sq.m. Ages 40-49 = 99 mL/min/1.73 sq.m. Ages 50-59 = 93 mL/min/1.73 sq.m. Ages 60-69 = 85 mL/min/1.73 sq.m. Ages 70+ = 75 mL/min/1.73 sq.m. Chronic Kidney Disease: Less than 60 mL/min/1.73 square meters End Stage Renal Disease: Less than 15 mL/min/1.73 square meters Performed By: #### A RASHMI, CBC, ADIFF, GFR #### [address] [address] #### TROP, BMP #### [address] [address] .NEUABSon 09-19-2019 Neutrophils (Bld) [#/Vol] 7.60 10 3/mcL High 2.85-6.16 [facility] ([place]) Comment on above: Performed By: #### A RASHMI, CBC, ADIFF, GFR #### [place] [address] #### TROP, BMP #### [address] [address] [facility] Calcium [Mass/Vol] 9.1 mg/dL Normal 8.4-10.2 [facility] ([place]) Comment on above: Performed By: #### A RASHMI, CBC, ADIFF, GFR #### [place] [address] #### TROP, BMP #### [address] [address] Chloride [Moles/Vol] 104 mmol/L Normal 98-107 [facility] ([place] Comment on above: Performed By: #### A RASHMI, CBC, ADIFF, GFR #### [place] [address] #### TROP, BMP #### [address] [address] CO2 [Moles/Vol] 29 mmol/L Normal 23-31 [facility] ([place]) Comment on above: Performed By: #### A RASHMI, CBC, ADIFF, GFR #### [address] [address] #### TROP, BMP #### [address] [address] Creatinine [Mass/Vol] 0.99 mg/dL Normal 0.70-1.30 [facility] ([place] Comment on above: Performed By: #### A RASHMI, CBC, ADIFF, GFR #### [address] [address] #### TROP, BMP #### [address] [address] Electrolyte Balance 8.0 mEq/L Normal [facility] ([place] Comment on above: Performed By: #### A RASHMI, CBC, ADIFF, GFR #### [address] [address] #### TROP, BMP #### [address] [address] Glucose [Mass/Vol] 108 mg/dL Normal 80-115 [facility] ([place]) Comment on above: Performed By: #### A RASHMI, CBC, ADIFF, GFR #### [address] [address] #### TROP, BMP #### [address] [address] Potassium [Moles/Vol] 4.5 mmol/L Normal 3.5-5.1 [facility] ([place] Comment on above: Performed By: #### A RASHMI, CBC, ADIFF, GFR #### [address] [address] #### TROP, BMP #### [address] [address] Sodium [Moles/Vol] 141 mmol/L Normal 136-145 [facility] ([place]) Comment on above: Performed By: #### A RASHMI, CBC, ADIFF, GFR #### [place] [address] #### TROP, BMP #### [address] [address] Urea nitrogen [Mass/Vol] 16 mg/dL Normal 7-18 [facility] ([place] Comment on above: Performed By: #### A RASHMI, CBC, ADIFF, GFR #### [address] [address] #### TROP, BMP #### [address] [address] Urea nitrogen/Creatinin e [Mass ratio] 16 ratio Normal 7-27 [facility] ([place] Comment on above: Performed By: #### A RASHMI, CBC, ADIFF, GFR #### [address] [address] #### TROP, BMP #### [address] [address] CBCon 09-19-2019 Erythrocyte distribution width (RBC) [Ratio] 12.9 % Normal 11.5-14.5 [facility] ([place] Comment on above: Performed By: #### A RASHMI, CBC, ADIFF, GFR #### [address] [address] #### TROP, BMP #### [address] [address] Hematocrit (Bld) [Volume fraction] 47.5 % Normal 42.0-52.0 [facility] ([place] Comment on above: Performed By: #### A RASHMI, CBC, ADIFF, GFR #### [place] [address] #### TROP, BMP #### [place] [address] Hemoglobin (Bld) [Mass/Vol] 15.8 G/dL Normal 14.0-18.0 [facility] ([place] Comment on above: Performed By: #### A RASHMI, CBC, ADIFF, GFR #### [place] [address] #### TROP, BMP #### [address] [address] MCH (RBC) [Entitic mass] 28.3 pg Normal 27.0-31.2 [facility] ([place] Comment on above: Performed By: #### A RASHMI, CBC, ADIFF, GFR #### [place] [address] #### TROP, BMP #### [place] [address] MCHC (RBC) [Mass/Vol] 33.4 G/dL Normal 31.8-35.4 [facility] ([place] Comment on above: Performed By: #### A RASHMI, CBC, ADIFF, GFR #### [place] [address] #### TROP, BMP #### [place] [id number] MCV (RBC) [Entitic vol] 84.7 fL Normal 80.0-94.0 [facility] ([place] Comment on above: Performed By: #### A RASHMI, CBC, ADIFF, GFR #### [place] [address] #### TROP, BMP #### [address] [address] Platelet mean volume (Bld) [Entitic vol] 8.7 fL Normal 7.4-10.4 [facility] ([place] Comment on above: Performed By: #### A RASHMI, CBC, ADIFF, GFR #### [place] [address] #### TROP, BMP #### [address] [address] Platelets (Bld) [#/Vol] 169 10 3/mcL Normal 130-400 [facility] ([place] Comment on above: Performed By: #### A RASHMI, CBC, ADIFF, GFR #### [place] [address] #### TROP, BMP #### [place] [address] RBC (Bld) [#/Vol] 5.60 10 6/mcL Normal 4.04-6.13 [facility] ([place]) Comment on above: Performed By: #### A RASHMI, CBC, ADIFF, GFR #### [place] [address] #### TROP, BMP #### [place] [address] WBC (Bld) [#/Vol] 9.70 10 3/mcL Normal 4.60-10.80 [facility] ([place] Comment on above: Performed By: #### A RASHMI, CBC, ADIFF, GFR #### [place] [address] #### TROP, BMP #### [place] [address] TROPon 09-19-2019 Troponin I.cardiac [Mass/Vol] ng/mL Normal 0.000-0.040 [facility] ([place] Comment on above: Result Comment: Trop onin I reference range: 0.00-0.040 ng/mL Negative and non-diagnostic. >0.040 ng/mL Consistent with cardiac damage, increased clinical risk and possibility of myocardial infarction. Serial measurements, a rise & fall in test results, clinical history, appropriate symptoms and/or ECG changes may help assess possibility of IA. *Other non-acute coronary syndrome conditions such as CHF, myocarditis, pulmonary emboli, sepsis and cardiac surgery could result in myocardial damage and increased troponin levels. Performed By: #### A RASHMI, CBC, ADIFF, GFR #### [place] [address] #### TROP, BMP #### [address] [address] XR CHEST 1 VIEWon 09-19-2019 XR CHEST 1 VIEW ORIGINAL XR CHEST 1 VIEW CLINICAL STATEMENT: chest pain/SOB. COMPARISON: None FINDINGS: Evaluation is compromised by portable technique and patient body habitus as well as suboptimal x-ray penetration. The cardiomediastinal silhouette appears normal. Monitoring leads overlie the image. No focal consolidation, pleural effusion, vascular congestion, or pneumothorax is identified. IMPRESSION: No acute radiographic findings. Interpreted By: Cynthia Olivas MD Preliminary Report By: Cynthia Olivas MD Electronically Signed By: Cynthia Olivas MD Dictated Date: 09/19/2019 1:15:22 PM Prelim Date: 09/19/2019 1:15:22 PM Sign Date: 09/19/2019 1:15:53 PM Ordering Provider:Koby Thomas [facility] ([place]) .Auto Diffon 09-14-2019 Ammonia (P) [Mass/Vol] 0.80 10 3/mcL Normal 0.15-1.00 [facility] ([place] Comment on above: Performed By: #### A RASHMI, CBC, ADIFF, GFR #### [address] [address] #### TROP, BMP #### [address] [address] Basophils (Bld) [#/Vol] 0.10 10 3/mcL Normal 0.00-0.19 [facility] ([place] Comment on above: Performed By: #### A RASHMI, CBC, ADIFF, GFR #### [address] [address] #### TROP, BMP #### [address] [address] Basophils/100 WBC (Bld) 0.7 % Normal 0.0-2.5 [facility] ([place]) Comment on above: Performed By: #### A RASHMI, CBC, ADIFF, GFR #### [place] [address] #### TROP, BMP #### [address] [address] Eosinophils (Bld) [#/Vol] 0.10 10 3/mcL Normal 0.00-0.40 [facility] ([place]) Comment on above: Performed By: #### A RASHMI, CBC, ADIFF, GFR #### [place] [address] #### TROP, BMP #### [address] [address] Eosinophils/100 WBC (Bld) 1.0 % Normal 0.0-7.0 [facility] ([place]) Comment on above: Performed By: #### A RASHMI, CBC, ADIFF, GFR #### [place] [address] #### TROP, BMP #### [address] [address] Lymphocytes (Bld) [#/Vol] 2.00 10 3/mcL Normal 0.77-3.85 [facility] ([place]) Comment on above: Performed By: #### A RASHMI, CBC, ADIFF, GFR #### [place] [address] #### TROP, BMP #### [address] [address] Lymphocytes/100 WBC (Bld) 17.6 % Normal 10.0-50.0 [facility] ([place]) Comment on above: Performed By: #### A RASHMI, CBC, ADIFF, GFR #### [place] [address] #### TROP, BMP #### [address] [address] Monocytes/100 WBC (Bld) 7.5 % Normal 1.7-13.0 [facility] ([place] Comment on above: Performed By: #### A RASHMI, CBC, ADIFF, GFR #### [address] [address] #### TROP, BMP #### [address] [address] Neutrophils/100 WBC (Bld) 73.2 % Normal 37.0-80.0 [facility] ([place]) Comment on above: Performed By: #### A RASHMI, CBC, ADIFF, GFR #### [address] [address] #### TROP, BMP #### [address] [address] .GFRon 09-14-2019 GFR 45 ml/min/1.73sqm Normal [facility] ([place]) Comment on above: Result Comment: GFR Population mean for , Non- Americans Ages 20-29 = 116 mL/min/1.73 sq.m. Ages 30-39 = 107 mL/min/1.73 sq.m. Ages 40-49 = 99 mL/min/1.73 sq.m. Ages 50-59 = 93 mL/min/1.73 sq.m. Ages 60-69 = 85 mL/min/1.73 sq.m. Ages 70+ = 75 mL/min/1.73 sq.m. Chronic Kidney Disease: Less than 60 mL/min/1.73 square meters End Stage Renal Disease: Less than 15 mL/min/1.73 square meters Performed By: #### A RASHMI, CBC, ADIFF, GFR #### [address] [address] #### TROP, BMP #### [address] [address] GFR Non- 37 ml/min/1.73sqm Normal [facility] ([place]) Comment on above: Result Comment: GFR Population mean for , Non- Americans Ages 20-29 = 116 mL/min/1.73 sq.m. Ages 30-39 = 107 mL/min/1.73 sq.m. Ages 40-49 = 99 mL/min/1.73 sq.m. Ages 50-59 = 93 mL/min/1.73 sq.m. Ages 60-69 = 85 mL/min/1.73 sq.m. Ages 70+ = 75 mL/min/1.73 sq.m. Chronic Kidney Disease: Less than 60 mL/min/1.73 square meters End Stage Renal Disease: Less than 15 mL/min/1.73 square meters Performed By: #### A RASHMI, CBC, ADIFF, GFR #### [place] [address] #### TROP, BMP #### [address] [address] .NEUABSon 09-14-2019 Neutrophils (Bld) [#/Vol] 8.20 10 3/mcL High 2.85-6.16 [facility] ([place] Comment on above: Performed By: #### A RASHMI, CBC, ADIFF, GFR #### [place] [address] #### TROP, BMP #### [address] [address] BMPon 09-14-2019 Calcium [Mass/Vol] 9.2 mg/dL Normal 8.4-10.2 [facility] ([place]) Comment on above: Performed By: #### A RASHMI, CBC, ADIFF, GFR #### [place] [address] #### TROP, BMP #### [address] [address] Chloride [Moles/Vol] 104 mmol/L Normal 98-107 [facility] ([place] Comment on above: Performed By: #### A RASHMI, CBC, ADIFF, GFR #### [place] [address] #### TROP, BMP #### [address] [address] CO2 [Moles/Vol] 26 mmol/L Normal 23-31 [facility] ([place]) Comment on above: Performed By: #### A RASHMI, CBC, ADIFF, GFR #### [address] [address] #### TROP, BMP #### [address] [address] Creatinine [Mass/Vol] 1.83 mg/dL High 0.70-1.30 [facility] ([place] Comment on above: Performed By: #### A RASHMI, CBC, ADIFF, GFR #### [address] [address] #### TROP, BMP #### [address] [address] Electrolyte Balance 9.0 mEq/L Normal [facility] ([place] Comment on above: Performed By: #### A RASHMI, CBC, ADIFF, GFR #### [address] [address] #### TROP, BMP #### [address] [address] Glucose [Mass/Vol] 114 mg/dL Normal 80-115 [facility] ([place]) Comment on above: Performed By: #### A RASHMI, CBC, ADIFF, GFR #### [address] [address] #### TROP, BMP #### [address] [address] Potassium [Moles/Vol] 4.2 mmol/L Normal 3.5-5.1 [facility] ([place] Comment on above: Performed By: #### A RASHMI, CBC, ADIFF, GFR #### [address] [address] #### TROP, BMP #### [address] [address] Sodium [Moles/Vol] 139 mmol/L Normal 136-145 [facility] ([place]) Comment on above: Performed By: #### A RASHMI, CBC, ADIFF, GFR #### [address] [address] #### TROP, BMP #### [address] [address] Urea nitrogen [Mass/Vol] 29 mg/dL High 7-18 [facility] ([place] Comment on above: Performed By: #### A RASHMI, CBC, ADIFF, GFR #### [address] [address] #### TROP, BMP #### [address] [address] Urea nitrogen/Creatinin e [Mass ratio] 16 ratio Normal 7-27 [facility] ([place]) Comment on above: Performed By: #### A RASHMI, CBC, ADIFF, GFR #### [place] [address] #### TROP, BMP #### [address] [address] CBCon 09-14-2019 Erythrocyte distribution width (RBC) [Ratio] 12.8 % Normal 11.5-14.5 [facility] ([place] Comment on above: Performed By: #### A RASHMI, CBC, ADIFF, GFR #### [place] [address] #### TROP, BMP #### [address] [address] Hematocrit (Bld) [Volume fraction] 49.1 % Normal 42.0-52.0 [facility] ([place] Comment on above: Performed By: #### A RASHMI, CBC, ADIFF, GFR #### [address] [address] #### TROP, BMP #### [address] [address] Hemoglobin (Bld) [Mass/Vol] 16.1 G/dL Normal 14.0-18.0 [facility] ([place] Comment on above: Performed By: #### A RASHMI, CBC, ADIFF, GFR #### [place] [address] #### TROP, BMP #### [address] [address] MCH (RBC) [Entitic mass] 27.9 pg Normal 27.0-31.2 [facility] ([place] Comment on above: Performed By: #### A RASHMI, CBC, ADIFF, GFR #### [place] [address] #### TROP, BMP #### [address] [address] MCHC (RBC) [Mass/Vol] 32.7 G/dL Normal 31.8-35.4 [facility] ([place]) Comment on above: Performed By: #### A RASHMI, CBC, ADIFF, GFR #### [place] [address] #### TROP, BMP #### [address] [address] MCV (RBC) [Entitic vol] 85.2 fL Normal 80.0-94.0 [facility] ([place]) Comment on above: Performed By: #### A RASHMI, CBC, ADIFF, GFR #### [place] [address] #### TROP, BMP #### [place] [address] Platelet mean volume (Bld) [Entitic vol] 8.9 fL Normal 7.4-10.4 [facility] ([place] Comment on above: Performed By: #### A RASHMI, CBC, ADIFF, GFR #### [place] [address] #### TROP, BMP #### [address] [address] Platelets (Bld) [#/Vol] 188 10 3/mcL Normal 130-400 [facility] ([place]) Comment on above: Performed By: #### A RASHMI, CBC, ADIFF, GFR #### [place] [address] #### TROP, BMP #### [address] [address] RBC (Bld) [#/Vol] 5.77 10 6/mcL Normal 4.04-6.13 [facility] ([place] Comment on above: Performed By: #### A RASHMI, CBC, ADIFF, GFR #### [address] [address] #### TROP, BMP #### [address] [address] WBC (Bld) [#/Vol] 11.20 10 3/mcL High 4.60-10.80 [facility] ([place]) Comment on above: Performed By: #### A RASHMI, CBC, ADIFF, GFR #### [address] [address] #### TROP, BMP #### [address] [address] [address] HEAD OR BRAIN W/O CONTRAS Ton 09-14-2019 CT HEAD OR BRAIN W/O CONTRAST ORIGINAL CT HEAD OR BRAIN W/O CONTRAST This exam was performed according to our departmental dose optimization program, and includes the following measures where applicable: automated exposure control, adjustment of the mAs and/or kVp according to patient size and/or exam, and an iterative reconstruction algorithm. CLINICAL STATEMENT: change in mental status/weakness/aphasi a, headache, dizziness, right-sided numbness COMPARISON: None FINDINGS: The ventricles are normal in size, shape, and position. Age-appropriate prominence of cerebral sulci is demonstrated. Mild periventricular and patchy deep white matter hypodensity favors chronic ischemic small vessel disease. There is no acute intracranial hemorrhage, large territory infarct, mass effect, or midline shift. The calvarium is intact. Visualized paranasal sinuses and mastoid air cells are clear. There is atherosclerotic calcification of the internal carotid arteries. IMPRESSION: 1. No acute intracranial hemorrhage. 2. No acute findings. Interpreted By: Crystal Rosales MD Preliminary Report By: Crystal Rosales MD Electronically Signed By: Crystal Rosales MD Dictated Date: 09/14/2019 7:36:29 PM Prelim Date: 09/14/2019 7:36:29 PM Sign Date: 09/14/2019 7:39:07 PM Ordering Provider:George Thomas [facility] ([place]) TROPon 09-14-2019 Troponin I.cardiac [Mass/Vol] ng/mL Normal 0.000-0.040 [facility] ([place]) Comment on above: Result Comment: Trop onin I reference range: 0.00-0.040 ng/mL Negative and non-diagnostic. >0.040 ng/mL Consistent with cardiac damage, increased clinical risk and possibility of myocardial infarction. Serial measurements, a rise & fall in test results, clinical history, appropriate symptoms and/or ECG changes may help assess possibility of IA. *Other non-acute coronary syndrome conditions such as CHF, myocarditis, pulmonary emboli, sepsis and cardiac surgery could result in myocardial damage and increased troponin levels. Performed By: #### A RASHMI, CBC, ADIFF, GFR #### [place] [address] [place], [place] [address] #### TROP, BMP #### [address] [address] Clinical Notes 10-07-2020 to 04-14-2021 Note Date & Type Note Facility 04-14-2021 Note HNO ID: [id number] Author: Peyton Diop RN Service: ? Author Type: Registered Nurse Type: Nursing Progress Note Filed: 04/14/2021 1:59 PM Note Text: 1400 Home instructions reinforced. Right groin site soft DRESSING D/I. VSS NEURO WNL [facility] 04-14-2021 Note HNO ID: [id number] Author: Peyton Diop RN Service: ? Author Type: Registered Nurse Type: Nursing Progress Note Filed: 04/14/2021 10:12 AM Note Text: 1011 patient admitted to POD, pre procedure teaching at bedside. Review of medications with susi [facility] 10-08-2020 Note HNO ID: [id number] Author: Susanna Coles RN Service: Nursing Author Type: Registered Nurse Type: Nursing Progress Note Filed: 10/08/2020 12:56 PM Note Text: Reinforced need for Brilinta everyday. Patient and s/o verbalize an understanding. [facility] 10-08-2020 Note HNO ID: [id number] Author: Susanan Coles RN Service: Nursing Author Type: Registered Nurse Type: Nursing Progress Note Filed: 10/08/2020 12:32 PM Note Text: Lunch tray to patient. S/O at bedside [facility] 10-08-2020 Note HNO ID: [id number] Author: Yulisa Christianson MD Service: Connected Care Author Type: Physician Type: Progress Notes Filed: 10/08/2020 12:32 PM Note Text: Progress Note dictated. [facility] 10-08-2020 Note HNO ID: [id number] Author: Susanna Coles RN Service: Nursing Author Type: Registered Nurse Type: Nursing Progress Note Filed: 10/08/2020 12:20 PM Note Text: Dr. Thomason paged for d/c orders [facility] 10-08-2020 Note HNO ID: [id number] Author: Susanna Coles RN Service: Nursing Author Type: Registered Nurse Type: Nursing Progress Note Filed: 10/08/2020 12:04 PM Note Text: Kitchen called with patient preference for lunch. Awaiting lab results [facility] 10-08-2020 Note HNO ID: [id number] Author: Susanna Coles RN Service: Nursing Author Type: Registered Nurse Type: Nursing Progress Note Filed: 10/08/2020 12:04 PM Note Text: Report to Zara FERNANDEZ for report for break [facility] 10-08-2020 Note HNO ID: [id number] Author: Susanna Coles RN Service: Nursing Author Type: Registered Nurse Type: Nursing Progress Note Filed: 10/08/2020 12:00 PM Note Text: Dr. Christianson in to see patient [facility] 10-08-2020 Note HNO ID: [id number] Author: Susanna Coles RN Service: Nursing Author Type: Registered Nurse Type: Nursing Progress Note Filed: 10/08/2020 12:01 PM Note Text: Dr. Thomason in with patient [facility] 10-08-2020 Note HNO ID: [id number] Author: Susanna Coles RN Service: Nursing Author Type: Registered Nurse Type: Nursing Progress Note Filed: 10/08/2020 9:52 AM Note Text: Sleeping. NAD noted. [facility] 10-08-2020 Note HNO ID: [id number] Author: Susanna Coles RN Service: Nursing Author Type: Registered Nurse Type: Nursing Progress Note Filed: 10/08/2020 8:16 AM Note Text: Dr. Morales paged re: unequal pupil size( # [phone]) [facility] 10-08-2020 Note HNO ID: [id number] Author: Jacquie Jackson RN Service: Nursing Author Type: Registered Nurse Type: Nursing Progress Note Filed: 10/08/2020 8:20 AM Note Text: Report to Susanna FERNANDEZ. [facility] 10-08-2020 Note HNO ID: [id number] Author: Kasey Hernández APRN.SOFTWARE TRAINER Service: Neurology ICU Author Type: Nurse Practitioner Type: Progress Notes Filed: 10/08/2020 7:48 AM Note Text: SERVICE DATE: 10/08/2020 SERVICE TIME: 7:47 AM NEURO ICU PROGRESS NOTE DATE OF ADMISSION: 10/07/2020 Subjective Hospital Course: 10/08: s/p stenting of left vert ostium yesterday with Dr. Morales. Stable overnight, neuro exam intact. Likely d/c home today. Events Since Last Note: As above Objective BP 163/86 Pulse 65 Temp 36.8 ?C (98.2 ?F) (Temporal) Resp 15 Ht 177.8 cm (5' 10 ) Wt 118.8 kg (261 lb 12.8 oz) SpO2 97% BMI 37.56 kg/m? Weight change: Neuro: GCS: Eyes: 4. Spontaneous Verbal: 5: Oriented Motor: 6: Obeys Motor commands Total: 15 CRANIAL NERVES: Normal mood and affect. CNII-XII grossly intact. MOTOR STRENGTH: Upper and lower extremity 5/5 bilaterally SENSATION: Intact light touch COORDINATION: Finger-to- nose-finger intact bilaterally CV: HRR Pulm: CTAB, even and unlabored on RA GI/: soft, nontender Skin/Extremities: Edema- No Peripheral pulses- Present all extremities Wounds/Drsgs- No Breakdown- No Diagnostic tests reviewed for today's visit: Most recent labs and imaging results. Lines, Drains, and Airways Line Peripheral 10/07/20 0927 Left Forearm 20 Gauge <1 day ICU Checklist -------- A= Assess, Prevent, Manage Pain C= Choice of Sedation and Analgesia B= Both Spontaneous Awakening and Breathing Trials D= Delirium: Assess, Prevent and Manage E= Early Mobility/Excercise ICU Mobility: F= Family Engagement and Empowerment ICU plan of care visit at bedside in last 24 hours: Yes, Provider, RN, Patient/ designee ICU Disposition: Prevention: VTE Prophylaxis: PERSONAL INVOLVEMENT IN CARE: Reviewing initiation, responses and adjustments to therapies, coordination of care, and updating family with Staff Physician, Dr. Thomason. Assessment AND Plan Active Hospital Problems as of 10/08/2020 Noted - Resolved [facility] Cerebrovascular accident (CVA) due to vascular occlusion (HCC) 09/20/2019 - Present Yes Current Assessment AND Plan History of CVA status post PCI, BA thrombectomy and B vertebral ostium stenting on 09/20/2019 -Plan as mentioned above HTN (hypertension) 09/20/2019 - Present Yes Current Assessment AND Plan -Restart home medications -Continue to monitor BP TIA involving basilar artery 10/07/2020 - Present Yes Current Assessment AND Plan History of TIA s/p PCI, PA thrombectomy and B vertebral ostium stenting on 09/20/2019. - NIL 10/[address] Morales for stenting of the left vert ostium - Neuro checks q1h - groin site c/d/i, no hematoma - labs stable, neuro intact - c/w asa and brilinta - c/w statin - likely d/c home today Medication and Non-Pharmacologic VTE Prophylaxis/Anticoagulants Anticoagulant AND Antiplatelet Medications (From admission, onward) Start Dose Route Frequency Last Action Ordered Stop 10/07/202099 ticagrelor 90 mg tab(s) (BRILINTA) 90 mg ORAL 2 TIMES DAILY Given, 10/0717/21 1749 -- 10/07/20 1330 aspirin, enteric coated 81 mg tab(s) 81 mg ORAL DAILY Ordered 10/07/20 1315 -- 10/07/20 1630 activity - mobilize patient (fl,oh) VTE Prophylaxis: Contraindicated high risk of bleeding Plan of care discussed with: Provider, RN, Patient SIGNATURE: Kasey Hernández APRN.CNP PATIENT NAME: Michelle Solares DATE: October 08, 2020 TIME: 7:47 AM 1005 CC time 30 mins This patient has a high probability of sudden, clinically significant deterioration, which requires the highest level of physician preparedness to intervene urgently. I managed/supervised life or organ supporting interventions that required frequent physician assessment. I devoted my full attention to the direct care of this patient for the amount of time indicated below. Time I spent with family or surrogate(s) is included only if the patient was incapable of providing the necessary information or participating in medical decision making. Time devoted to teaching and to any procedures I billed separately is not included. Critical Care Documentation: The patient has the following organ/system impairment(s): Complex life-threatening medical problem(s), Respiratory failure (Acute on Chronic, with Hypoxemia) and Severe electrolyte imbalance Partial documentation from previous visit was copied and pasted, documentation has been reviewed and edited as necessary for today's visit. [facility] 10-07-2020 Note HNO ID: [id number] Author: Zara Torres RN Service: ? Author Type: Registered Nurse Type: Nursing Progress Note Filed: 10/07/2020 8:57 PM Note Text: Report to REBECCA Reed and REBECCA Mcdaniel [facility] 10-07-2020 Note HNO ID: [id number] Author: Sandhya Mason [facility] Service: Pharmacy Author Type: Pharmacist Type: Plan of Care Filed: 10/07/2020 5:40 PM Note Text: PHARMACY MEDICATION REVIEW Patient Name: Michelle Solares : 1955 The following medications were updated within the ACADEMIC COUNSELOR medication list: Medications ADDED to ACADEMIC COUNSELOR medication list ? Valsartan 80 mg once daily - filled on 08/22 for 90 day supply Medications CHANGED on ACADEMIC COUNSELOR medication list ? None Medications REMOVED from ACADEMIC COUNSELOR medication list ? Amlodipine ? Clopidogrel Additional comments: N/A The below information represents the best possible medication history: Yes Medication history completed by: Pharmacist: Vignesh Mason RPh Source of history: Family (patient's ): Reliability of source: Appears reliable, clearly identified: Medication name, Medication dose, Medication route and Medication frequency and Pharmacy records: [facility] Medication nonadherence identified: No barriers noted Reconciliation completed: Yes All ACADEMIC COUNSELOR medications addressed by LIP Patient interested in Bedside Delivery Services or using OP Pharmacy at discharge? No Preferred outpatient pharmacy: [facility] [address] - [address] [facility] [phone] [id number] Allergies: No Known Allergies Prior to Admission medications as of 10/07/20 1740 Medication Sig Last Dose Taking traZODone (DESYREL) 50 mg tablet Take 50 mg by mouth daily at bedtime. 10/06/2020 at Unknown time Yes carvedilol (COREG) 6.25 mg tablet Take 6.25 mg by mouth twice daily with meals. 10/07/2020 at Unknown time Yes ticagrelor (BRILINTA) 90 mg tablet Take 90 mg by mouth. 10/07/2020 at Unknown time Yes valsartan (DIOVAN) 80 mg tablet Take 80 mg by mouth once daily. Yes aspirin 81 mg chewable tablet 1 tablet by ORAL/FEEDING TUBE route once daily. 10/07/2020 at Unknown time Yes atorvastatin (LIPITOR) 40 mg tablet 1 tablet by ORAL/FEEDING TUBE route daily at bedtime. 10/06/2020 at Unknown time Yes Sandhya Mason RPh 10/07/2020 [facility] Summary Purpose Family History No Family History Records FoundNo Family History Records FoundNo Family History Records FoundNo Family History Records Found Advance Directives No Advanced Directives Records FoundNo Advanced Directives Records FoundNo Advanced Directives Records FoundNo Advanced Directives Records Found Additional Source Comments (unrecognized sect ion and content) No Status Records FoundNo Status Records FoundNo Status Records FoundNo Status Records Found INFORMATION SOURCE (unrecogn ized section and content) DATE CREATED AUTHOR 02/22/2020 [facility] ([place]) DATE CREATED AUTHOR 'S ORGANIZ ATION 09/22/2020 [facility] DATE CREATED AUTHOR AUTHOR'S ORGANPENNY ATION 04/24/2021 [facility] DATE CREATED AUTHOR AUTHOR'S ORGANPENNY ATION 05/19/2021 [facility] FOR RECORDS PERTAINING TO PATIENTS WHO ARE OR HAVE BEEN ENROLLED IN A CHEMICAL DEPENDENCY/SUBSTANCEABUSE PROGRAM, SOME INFORMATION MAY BE OMITTED. This clinical summary was aggregated from multiple sources. Caution should be exercised in using it in the provision of clinical care. This summary normalizes information from multiple sources, and as a consequence, information in this document may materially change the coding, format and clinical context of patient data. In addition, data may be omitted in some cases. CLINICAL DECISIONS SHOULD BE BASED ON THE PRIMARY CLINICAL RECORDS. [employer] [facility]. provides no warranty or guarantee of the accuracy or completeness of information in this document.
--- NOTE | 2023-12-16 07:20 | PRE.ANES_ITS ---
ASA Classification* ASA Classification ASA Classification: 3 Assessment & Plan Anesthesia* Anesthesia Assessment Anesthesia Assessment: Discussed sedation and/or anesthesia options, risks, benefits, and alternatives with patient/parents/legal guardian/POA. Questions invited. The patient/parents/legal guardian/POA seems to understand and agrees to proceed with anesthesia plan. Reviewed the physical assessment, medical history, allergy history and patient home medications list prior to surgery/procedure/anesthetic and documented any changes. Performed airway and anesthesia risk assessments. Anesthesia Type Anesthesia Type: MAC Anesthesia Focused Assessment* Temperature: 97.4 F Pulse Rate: 68 Blood Pressure: 122/73 Respiratory Rate: 16 Pulse Ox: 95 Airway Assessment Mouth opens: >3 cm Mallampati Score: II Focused Labs Anesthesia Preop lab: CBC WBC 8.0 K/mm3 (4.4-11.0) 11/11/23 09:17 RBC 5.35 M/mm3 (4.6-6.2) 11/11/23 09:17 Hgb 15.0 g/dL (13.0-16.5) 11/11/23 09:17 Hct 46.7 % (40-54) 11/11/23 09:17 Plt Count 154 K/mm3 (150-450) 11/11/23 09:17 CHEMISTRY Potassium 3.8 mmol/L (3.5-5.1) 11/11/23 09:17 Sodium 140 mmol/L (136-145) 11/11/23 09:17 Magnesium 2.3 mg/dL (1.6-2.6) 11/15/19 11:13 BUN 19 mg/dL (7-18) H 11/11/23 09:17 Creatinine 1.08 mg/dL (0.70-1.30) 11/11/23 09:17 Glucose 114 mg/dL (74-106) H 11/11/23 09:17 TSH 1.740 uIU/mL (0.358-3.740) 11/11/23 09:17 COAG PT 13.2 SECONDS (11.7-14.9) 11/20/19 12:54 Pre-Assessment Diagnosis/Proposed Procedure Planned Operative Procedure(s): COLONOSCOPY Anesthesia History 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 When Was Last Pacemaker Check QUESTION #4 FULL TEXT: You/Your Family Experience fever (hyperthermia) with Anesthesia Last Oral Intake Last Oral intake: Last Oral Intake NPO since 06:00 12/16/23 07:05 Meds taken in AM with sips of Yes 12/16/23 07:05 water? Meds patient instructed to see mar 12/16/23 07:05 take am of surgery PONV PONV - machine tool operator: PONV - machine tool operator Female No 12/14/23 11:52 HX of Motion Sickness No 12/14/23 11:52 HX of N/V After Surgery No 12/14/23 11:52 Non-Smoker Yes 12/14/23 11:52 Duration of Surgery greater No 12/14/23 11:52 than 60 minutes Number of Risk Factors 1 12/14/23 11:52 PONV Score Low Risk 12/14/23 11:52 Height & Weight Height & Weight: Anesthesia: Height & Weight Height 5 ft 10 in 12/16/23 07:05 Weight: 112.945 kg 12/16/23 07:05 Body Mass Index (BMI) 35.7 12/16/23 07:05 Respiratory Assessment Respiratory Assessment - machine tool operator: Respiratory Tract Infection Hx - machine tool operator Hx Respiratory Tract Infection No 12/14/23 11:52 STOP Sleep Apnea STOP Sleep Apnea - machine tool operator: STOP Sleep Apnea - machine tool operator Hx Hypertension Yes 12/14/23 11:52 Hx Sleep Apnea Yes 12/14/23 11:52 CPAP Yes 12/14/23 11:52 BIPAP No 12/14/23 11:52 Do you snore loudly (louder than talking or can be heard Do you often feel tired/ fatigued/ sleepy during daytime? Has anyone observed you stop breathing during sleep? STOP Results Positive 12/14/23 11:52 QUESTION #5 FULL TEXT : Do you snore loudly (louder than talking or can be heard through closed doors)? 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 Specify any problems Hx of Preganancy in last 3 N/A 12/14/23 11:52 Months Nurse Filling Out Transfusion [facility] 12/14/23 11:52 & Questions: Date: 12/14/23 12/14/23 11:52 Time: 11:59 12/14/23 11:52 Patient unable to answer at this time (ie. confused, unrespo /Reproduction History /Reproductive History - machine tool operator: /Reproductive Hx- machine tool operator Hx Now Gestational Age (in weeks): EDC: Hx Hx Para Hx Section SAB [facility] Medical History Wears contact lenses History of Clostridium difficile infection High cholesterol Stroke/cerebrovascular accident History of diverticulitis Former smoker CPAP (continuous positive airway pressure) dependence Sleep apnea History of echocardiogram Hypertension Cardiology follow-up encounter History of rheumatic fever Mild aortic stenosis AVNRT (AV ernestina re-entry tachycardia) Atherosclerosis of coronary artery without angina pectoris Positive FIT (fecal immunochemical test) Cataracts, bilateral NSVT (nonsustained ventricular tachycardia) Essential hypertension Asymmetric septal hypertrophy History of rheumatic fever as a child 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 Diverticulosis Restless leg syndrome History of multiple cerebrovascular accidents (CVAs) Intracranial embolism and thrombosis Osteoarthritis Eczema Discoid eczema Rheumatoid arthritis Home Medications ?Medication ?Instructions ?Recorded ?Last Taken ?Type aspirin 81 mg chewable tablet 81 mg PO DAILY@0800 heart 09/28/19 12/10/23 History atorvastatin 40 mg tablet 40 mg PO QHS cholesterol #90 tabs 03/24/23 Unknown Rx carvedilol 25 mg tablet 25 mg PO BID #90 tabs 03/24/23 12/16/23 06:00 Rx hydrochlorothiazide 25 mg tablet 25 mg PO DAILY #90 tabs 03/24/23 Unknown Rx valsartan 160 mg tablet 160 mg PO DAILY #14 tabs 11/01/23 12/16/23 Rx Allergy/AdvReac Type Severity Reaction Status Date / Time No Known Allergies Allergy Verified 12/16/23 07:00 Family History Father Sudden cardiac Blood clot to heart Brother Sleep apnea Heart disease Surgical History History of coronary artery stent placement (12/13/19) History of incisional hernia repair History of colostomy History of appendectomy History of colonoscopy History of tonsillectomy and adenoidectomy History of ankle fusion History of cardiac radiofrequency ablation (02/2016) Social History Smoking Status: Former smoker quit date: 02/22/16 Tobacco: How many years used: 20 how long ago did patient quit smokin second hand exposure: Yes alcohol intake: current alcohol intake frequency: a few times a week Alcohol type: beer substance use type: does not use caffeine: Yes Type: coffee Number of servings: 2 Review of Systems (Anesthesia) ROS Narrative System reviewed and no additional complaints, except as documented.
--- NOTE | 2023-12-16 08:00 | COLBX_PTH ---
PATHOLOGY RESULTS PATIENT: AMANDA DAVID LOC: EN U#:[id number] AGE/SX: 68/M ROOM: RE12/16/[address]: Dr. Kiko Wilburn MD : 1955 BED: DIS: 12/16/2023 SPEC #: [id number] RECD: 12/16/23 12:02 STATUS: MIGUEL ROBERTO #: [id number] SANDIE: 12/16/23 08:[address]: Kiko Wilburn DEPT: SURGICAL PATHOLOGY RECD BY: El Diez ENTERED: 12/16/23 13:01 SP TYPE: COLON BX OTHR DR: Dr. Joao Elliott, DO Tissues: COLON BIOPSY Ascending colon Procedures: Trichrome (control) Special Stain Group I Surgery Specimen Level IV HEADER OPERATION: Colonoscopy with biopsy, polypectomy PRE-OP DIAGNOSIS: Diarrhea TISSUE SUBMITTED: A- Random colon biopsy, B- Ascending colon polyp MICROSCOPIC DIAGNOSIS A. Colon, random biopsy: Fragments of colonic mucosa with changes consistent with lymphocytic (microscopic colitis). Focal minimal acute inflammation. See comment. B. Ascending colon polyp, polypectomy: Fragments of tubular adenoma. 12/19/2023 COMMENT A. Trichrome stain with matched control was used in the evaluation of this case. Correlation with clinical, endoscopic findings and appropriate follow-up are necessary. MICROSCOPIC DESCRIPTION Slides are reviewed. GROSS DESCRIPTION A. Received in fixative is one container labeled with the patient's name and designated Random colon biopsy. The specimen consists of multiple irregular fragments of light melendez soft tissue that in aggregate measure 2.5 x 0.6 x 0.1 cm. The specimen is totally submitted in one cassette. B. Received in fixative is one container labeled with the patient's name and designated Ascending colon polyp. The specimen consists of multiple irregular fragments of light melendez soft tissue that in aggregate measure 0.6 x 0.1 x 0.1 cm. The specimen is totally submitted in one cassette. 12/16/2023 TC:3 CPT:61129p1,98059
--- NOTE | 2023-12-16 08:02 | PCM.HP.BLA ---
History and Physical Date of Admission: 12/16/23 Intake Vital Signs 11/11/2407:30 11/27/2408:50 Height 5 ft 10 in 5 ft 10 in Weight: 25 lb BMI 3.6 BP 106/67 Blood Pressure Location Rt brachial Position Sitting Respiration 17 Pulse 60 Pulse Source Monitor Pulse Oximetry (%) 92 Oxygen Delivery Method room air Intake Visit Reasons: Diarrhea, COLONOSCOPY Chief Complaint: diarrhea/colonoscopy Is patient in pain?: No Allergies No Known Allergies Allergy (Verified 11/28/23 09:51) Medications ?Medication ?Instructions ?Recorded ?Confirmed ?Type aspirin 81 mg chewable tablet 81 mg PO DAILY@0800 heart 09/28/19 11/28/23 History atorvastatin 40 mg tablet 40 mg PO QHS cholesterol #90 tabs 03/24/23 11/28/23 Rx carvedilol 25 mg tablet 25 mg PO BID #90 tabs 03/24/23 11/28/23 Rx hydrochlorothiazide 25 mg tablet 25 mg PO DAILY #90 tabs 03/24/23 11/28/23 Rx valsartan 160 mg tablet 160 mg PO DAILY #14 tabs 11/01/23 11/28/23 Rx diphenoxylate-atropine 2.5 2 tab PO Q6H PRN diarrhea #30 tabs 11/16/23 11/28/23 Rx mg-0.025 mg tablet Have you fallen in the past year?: No PFSH Medical History Mild aortic stenosis AVNRT (AV ernestina re-entry tachycardia) Atherosclerosis of coronary artery without angina pectoris Positive FIT (fecal immunochemical test) Cataracts, bilateral NSVT (nonsustained ventricular tachycardia) Essential hypertension Asymmetric septal hypertrophy History of rheumatic fever as a child 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 Diverticulosis Restless leg syndrome History of multiple cerebrovascular accidents (CVAs) Intracranial embolism and thrombosis Osteoarthritis Eczema Discoid eczema Rheumatoid arthritis Surgical History History of coronary artery stent placement (12/13/19) History of incisional hernia repair History of colostomy History of appendectomy History of colonoscopy History of tonsillectomy and adenoidectomy History of ankle fusion History of cardiac radiofrequency ablation (02/2016) Family History Father Sudden cardiac Blood clot to heartBrother Sleep apnea Heart disease Social History Smoking Status: Former smoker quit date: 02/22/16 Tobacco: How many years used: 20 how long ago did patient quit smokin second hand exposure: Yes alcohol intake: current alcohol intake frequency: a few times a week Alcohol type: beer substance use type: does not use caffeine: Yes Type: coffee Number of servings: 2 HPI HPI HPI: Patient is a 68-year-old male here for evaluation for diarrhea. Patient reports the diarrhea was there 2 years ago when he saw me and it resolved and came back about a month ago. He does have a history of C. difficile colitis. Patient reports that the diarrhea does smell foul. He denies abdominal pain or fever. ROS General General: No weight change, appetite, fatigue, colon cancer, breast cancer or weakness HEENT HEENT: Yes eye injury; No difficulty swallowing, eye surgery, swollen glands or hoarseness Endo Endocrine: No thyroid disease, diabetes mellitus, thyroid cancer, Hair loss, heat intolerance or cold intolerance Musc Musculoskeletal: Yes arthritis; No back problems, rheumatoid arthritis, gout or joint pain Cardio Cardiovascular: Yes murmur, high blood pressure and heart stent; No pacemaker, heart disease, atrial fibrillation, heart attack, palpitations, shortness of breat with exertion or chest pain Psych Psychiatric: No depression, anxiety or hearing voices Resp Respiratory: Yes shortness of breath, Yes sleep apnea, No cough, No COPD, No asthma, No emphysema and No wheezing Gastro Gastrointestinal: No abdominal pain, No nausea or vomiting, Yes diarrhea, No constipation, Yes blood in stool, No acid reflux, No hemorrhoids, No ulcers, No gallbladder problem and No black,tarry stools Sammy Hematologic: No blood thinners, No blood disorders, No bleeding, No anemia and No blood clots Neuro Neurologic: No weakness Exam Const General: cooperative Orientation: alert and oriented x3 HENMT Head: normal to inspection Neck Neck: normal visual inspection and full ROM Chest Chest palpation & inspection: normal inspection of the chest Resp Effort & Inspection: normal respiratory effort Auscultation: clear to auscultation bilaterally Cardio Rate: regular rate Rhythm: regular rhythm GI Inspection: non-distended Palpation: soft and nontender Skin General: no rashes or lesions noted Neuro General: patient alert and patient oriented x3 Extrem General: full ROM Psych Appearance: grossly normal Mental Status: mental status grossly normal Assessment and Plan Assessment and Plan (1) Diarrhea: Status: Acute Qualifiers: Diarrhea type: unspecified type Qualified Code(s): R19.7 - Diarrhea, unspecified Plan: Patient has diarrhea and he was Hemoccult positive. I am checking stool studies for C. difficile and ova and parasites and as long as those are negative I will perform a colonoscopy. If those are positive we will treat and then perform colonoscopy later date. I also discussed performing random biopsies for microscopic colitis. I explained endoscopy in detail to the patient. I explained the risks including but not limited to stroke or heart attack with anesthesia, perforation of the GI tract, bleeding, infection. I explained that any of these could necessitate further emergency surgery. The patient understands and all questions were answered sufficiently. The patient wishes to proceed with procedure. Kiko Wilburn MD Pager: [facility] [address] [place] [address], [address] [place] [address] Office: I have examined the patient and the H&P has been reviewed. There are no clinical changes since date of exam.
--- NOTE | 2023-12-16 08:29 | OP.CCLET_ITS ---
12/16/2023 Joao Elliott Re : Colonoscopy procedure for Joaquin Solares Dear Dr. Elliott This procedure was performed on Saturday, December 16, 2023. My impressions and recommendations are as follows: Impressions : - The entire examined colon is normal on direct and retroflexion views. - No specimens collected. Recommendations : - Discharge patient to home. - Resume previous diet. - Continue present medications. - Await pathology results. - Repeat colonoscopy in 5 years for surveillance. My findings are described in the full procedure note, which is enclosed. If I can be of further assistance, please feel free to contact me at Doctor phone number(s): , Work: . Sincerely, Kiko Wilburn MD 12/16/2023 8:29:07 AM This report has been signed electronically.
--- NOTE | 2023-12-16 08:29 | OP.COLON_ITS ---
Patient Name: Joaquin Solares Procedure Date: 12/16/2023 8:08 AM Date of : 1955 Age: 68 Procedure: Colonoscopy Indications: Chronic diarrhea Providers: Kiko Wilburn MD Referring MD: Joao Elliott Medicines: Propofol per Anesthesia Patient Profile: This is a 68 year old male. Refer to note in patient chart for documentation of history and physical. Last Colonoscopy: 10 years ago. Complications: No immediate complications. Procedure: Pre-Anesthesia Assessment: - Prior to the procedure, a History and Physical was performed, and patient medications and allergies were reviewed. The patient's tolerance of previous anesthesia was also reviewed. The risks and benefits of the procedure and the sedation options and risks were discussed with the patient. All questions were answered, and informed consent was obtained. Prior Anticoagulants: The patient has taken no anticoagulant or antiplatelet agents. After reviewing the risks and benefits, the patient was deemed in satisfactory condition to undergo the procedure. After I obtained informed consent, the scope was passed under direct vision. Throughout the procedure, the patient's blood pressure, pulse, and oxygen saturations were monitored continuously. The Colonoscope was introduced through the anus and advanced to the cecum, identified by appendiceal orifice and ileocecal valve. The colonoscopy was performed without difficulty. The patient tolerated the procedure well. The quality of the bowel preparation was good. The ileocecal valve, appendiceal orifice, and rectum were photographed. Scope In: 8:15:32 AM Scope Withdrawal Time 0 hours 8 minutes 20 seconds Scope Out: 8:26:36 AM Total Procedure Duration Time 0 hours 11 minutes 4 seconds Findings: The entire examined colon appeared normal on direct and retroflexion views. Impression: - The entire examined colon is normal on direct and retroflexion views. - No specimens collected. Recommendation: - Discharge patient to home. - Resume previous diet. - Continue present medications. - Await pathology results. - Repeat colonoscopy in 5 years for surveillance. Procedure Code(s): --- Professional --- 74443, Colonoscopy, flexible; diagnostic, including collection of specimen(s) by brushing or washing, when performed (separate procedure) Diagnosis Code(s): --- Professional --- K52.9, Noninfective gastroenteritis and colitis, unspecified CPT copyright 2021 [employer]. All rights reserved. The codes documented in this report are preliminary and upon tubing supervisor review may be revised to meet current compliance requirements. Kiko Wilburn MD 12/16/2023 8:29:07 AM This report has been signed electronically. Number of Addenda: 1 Note Initiated On: 12/16/2023 8:08 AM Addendum Number: 1 Addendum Date: 12/16/2023 9:08:14 AM Random biopsies of the entire colon were performed to check for his source of diarrhea. Also he had a ascending colon polyp that was removed with hot snare. Kiko Wilburn MD 12/16/2023 9:08:38 AM This report has been signed electronically.
--- NOTE | 2023-12-16 08:34 | PCM.POST.ANE ---
Anesthesia: Postop Eval I Current Vital Signs Temperature: 97.3 F Pulse Rate: 67 Blood Pressure: 97/56 Respiratory Rate: 14 Pulse Ox: 92 Oxygen Delivery Method: Nasal Cannula Oxygen Flow Rate (L/min): 3 Assessment Airway patent: Yes Spontaneous unlabored respirations: Yes Mental status: Asleep nausea: No Vomiting: No Anesthesia Complication: No Fluid Hydration Crystalloid volume administer (ml): 50 Total IV fluid infused: 50 Progress Note Anesthesia document: Postop Eval 1 completed: Yes
--- NOTE | 2023-12-16 09:07 | PCM.POSTANE2 ---
Anesthesia Postop Eval I Sum Postop Eval Completion status Anesthesia document: Postop Eval 1 completed: Yes Anesthesia Postop Eval I Summary Anesthesia Postop Eval I Summary: Anesthesia Postop Eval I: Assessment Summary Airway patent Yes 12/16/23 08:36 [email or web address] Spontaneous unlabored Yes 12/16/23 08:36 [email or web address] respirations Mental status Asleep 12/16/23 08:36 [email or web address] nausea No 12/16/23 08:36 [email or web address] Vomiting No 12/16/23 08:36 [email or web address] Anesthesia Postop Eval I: Fluid Summary Crystalloid volume administer 50 12/16/23 08:36 [email or web address] (ml) Colloids volume administered ( ml) Blood Product volume administered (ml) Total IV fluid infused 50 12/16/23 08:36 [email or web address] Anesthesia Postop Eval I: Summary Notes Anesthesia Complication No 12/16/23 08:36 [email or web address] Anesthesia Complication Comment: Post-operative progress note Anesthesia: Postop Eval II Evaluation Mental status: Awake Pain Level: 0 nausea: No Vomiting: No
== END 2023-12-16 09:21 | disposition home or self-care (01) ==
LOC: EN 06:43 → AC 06:44
PROVIDERS: PCP Family Medicine; Referring Provider Family Medicine; Visit Provider Surgery
PROC: 0DJD8ZZ Inspection of Lower Intestinal Tract, Via Natural or Artificial Opening Endoscopic (ICD-10-PCS; CPT 45378; principal; 2023-12-16 07:55)
DX: K52.9 Noninfective gastroenteritis and colitis, unspecified (principal); I25.10 Atherosclerotic heart disease of native coronary artery without angina pectoris; I10 Essential (primary) hypertension; E78.00 Pure hypercholesterolemia, unspecified; Z87.891 Personal history of nicotine dependence; Z79.82 Long term (current) use of aspirin; Z79.899 Other long term (current) drug therapy; Z95.5 Presence of coronary angioplasty implant and graft
CPT/HCPCS: 45378; 88305; 88312; A4216; J2405

== ENCOUNTER → 2024-05-16 | Outpatient (CLI) | payer MEDICARE, SELFPAY ==
--- NOTE | 2024-05-16 08:46 | ECHOCS_ITS ---
Reason For Study Reason For Study: INCREASED PVC'S & AV STENOSIS Procedure This was a 2D Doppler, Color Flow transthoracic echocardiogram. The study was technically difficult. Contrast injection was performed. Exam performed in department. Left Ventricle Normal LV size. Left ventricular systolic function is normal. The left ventricular ejection fraction is 60 %. No regional wall motion abnormalities noted. Right Ventricle Normal RV size. Normal systolic function. Atria Normal left atrium. Normal right atrium. Mitral Valve Normal mitral valve. Tricuspid Valve Normal tricuspid valve. Mild (1+) tricuspid valve insufficiency. Pulmonary artery systolic pressure is 34 mmHg. Aortic Valve Trisinus/trileaflet aortic valve. Mild focal aortic valve calcification. Peak aortic valve gradient 29 mmHg. Mean aortic valve gradient 17 mmHg. Pulmonic Valve The pulmonic valve is not well visualized. Great Vessels Normal aortic root. The pulmonary artery is normal size. Inferior vena cava collapse with respiration. Pericardium/Pleural No pericardial effusion. Medication 22 gauge I.V. with prn adaptor inserted into right arm. Diluted definity 2.5ml given slow IV push to enhance endocardial definition. MMode/2D Measurements & Calculations LVIDd: 4.6 cm IVSd: 1.0 cm LVOT diam: 2.1 cm LVIDs: 3.0 cm LVPWd: 1.0 cm RVDd: 3.5 cm FS: 33.1 % LVOT area: 3.5 cm2 Ao root diam: 3.6 cm LAV(MOD-bp): 84.6 ml LVAd ap4: 33.6 cm2 LAV(MOD-bp) Indexed: 37.0 ml/m2 LVLd ap4: 8.9 cm LAV(MOD-sp2): 106.0 ml EDV(MOD-sp4): 106.1 ml LAV(MOD-sp4): 68.0 ml EDV(sp4-el): 107.4 ml LVAs ap4: 18.0 cm2 LVLs ap4: 7.8 cm ESV(MOD-sp4): 36.2 ml ESV(sp4-el): 35.1 ml EF(MOD-sp4): 65.9 % EF(sp4-el): 67.4 % SV(MOD-sp4): 69.9 ml SV(sp4-el): 72.3 ml LA A4 area: 22.1 cm2 SI(MOD-sp4): 30.6 ml/m2 LA dimension(2D): 5.5 cm RA A4 area: 17.4 cm2 TAPSE: 2.7 cm Time Measurements MV dec time: 0.25 sec Doppler Measurements & Calculations MV E max bossman: 122.5 cm/sec Lat Peak E' Bossman: 11.9 cm/sec Med Peak E' Bossman: 7.0 cm/sec MV A max bossman: 84.3 cm/sec E/E' lat: 10.3 E/E' med: 17.6 MV E/A: 1.5 MV V2 max: 135.9 cm/sec MV P1/2t max bossman: 131.0 cm/sec Ao V2 max: 266.9 cm/sec MV max P.4 mmHg MV P1/2t: 86.0 msec Ao max P.5 mmHg MV V2 mean: 62.5 cm/sec MV dec slope: 445.8 cm/sec2 Ao V2 mean: 196.2 cm/sec MV mean P.0 mmHg MVA(P1/2t): 2.6 cm2 Ao mean P.9 mmHg MV V2 VTI: 46.2 cm Ao V2 VTI: 66.6 cm MVA(VTI): 1.8 cm2 AV (velocity ratio): 0.37 OVIDIO(I,D): 1.3 cm2 OVIDIO(V,D): 1.3 cm2 LV V1 max: 100.1 cm/sec SV(LVOT): 85.1 ml PA V2 max: 77.8 cm/sec LV V1 max P.0 mmHg PA V2 mean: 58.7 cm/sec LV V1 mean P.3 mmHg LV V1 mean: 72.1 cm/sec LV V1 VTI: 24.4 cm TR max bossman: 271.7 cm/sec TR max P.5 mmHg ECHO/Echo Complete W/ Contrast Interpretation Summary Normal LV size. Left ventricular systolic function is normal. The left ventricular ejection fraction is 60 %. Mean aortic valve gradient 17 mmHg. Mild focal aortic valve calcification. Contrast injection was performed. Ordering Physician: Marlon Barnes Referring Physician: Marlon Barnes Performed By: Stephanie Maldonado, MIRNA, RVT
== END | disposition home or self-care (01) ==
PROVIDERS: PCP Family Medicine; Referring Provider Nurse Practitioner Family; Visit Provider Nurse Practitioner Family
DX: I49.3 Ventricular premature depolarization (principal)
CPT/HCPCS: 93306; Q9957; A4216; C8929

== ENCOUNTER → 2024-06-12 | Outpatient (CLI) | payer MEDICARE, SELFPAY ==
[2024-06-12 10:45] LABS: Absolute Lymphocyte Count 1.45 X10^3/uL (0.83-4.51); Absolute Neutrophil Count 4.9 X10^3/uL (2.0-7.7); Basophil# 0.03 X10^3/uL; Basophil% 0.4 % (0-1); Eosinophil# 0.12 X10^3/uL; Eosinophils% 1.7 % (0-5); Hematocrit 44.3 % (40-54); Hemoglobin 14.4 g/dL (13.0-16.5); Lymphocyte # 1.45 X10^3/ul (0.83-4.51); Mean Corp Hgb Conc 32.5 g/dL (32-36); Mean Corpuscular Hgb 28.5 pg (27.0-32.0); Mean Corpuscular Volume 87.7 fL (80-94); Mean Platelet Vol. 11.1 fl (6.2-12.0); Monocyte# 0.73 X10^3/uL; Monocyte% 10.1 % (0-10); NRBC Flagged by Analyzer 0 % (0-5); Neutrophil # 4.89 X10^3/uL (2.7-7.7); Neutrophil % 67.4 % (47-70); Platelet Count 169 K/mm3 (150-450); RBC Distribution Width CV 13.4 % (11.6-14.6); RBC Distribution Width SD 43.5 fl (35.1-43.9); Red Blood Count 5.05 M/mm3 (4.6-6.2); White Blood Count 7.3 K/mm3 (4.4-11.0)
[2024-06-12 11:48] LABS: Anion Gap 11 (5-15); BUN 14 mg/dL (4-19); BUN/Creat Ratio 15.5 RATIO (10-20); Calcium,Total 9.2 mg/dL (7.6-11.0); Carbon Dioxide 23.7 mmol/L (21.0-32.0); Chloride 104 mmol/L (98-108); Creatinine, Serum 0.89 mg/dL (0.70-1.20); EST Glomerular Filtration Rate 92 (>60); Glucose 105 mg/dL (70-99); Potassium 4.3 mmol/L (3.3-5.1); Pro- Brain NATRIURETIC PEPTIDE 1189 pg/mL (<=900); Sodium Level 139 mmol/L (133-145)
== END | disposition home or self-care (01) ==
LOC: LAB 10:11
PROVIDERS: PCP Family Medicine; Referring Provider Nurse Practitioner Family; Visit Provider Nurse Practitioner Family
DX: R06.02 Shortness of breath (principal)
CPT/HCPCS: 36415; 80048; 83880; 85025

== ENCOUNTER → 2024-06-22 | Outpatient (CLI) | payer MEDICARE, SELFPAY ==
[2024-06-22 10:29] LABS: Anion Gap 11 (5-15); BUN 18 mg/dL (4-19); Calcium,Total 9.1 mg/dL (7.6-11.0); Carbon Dioxide 18.9 mmol/L (21.0-32.0); Chloride 105 mmol/L (98-108); Creatinine, Serum 0.94 mg/dL (0.70-1.20); EST Glomerular Filtration Rate 87 (>60); Glucose 104 mg/dL (70-99); Potassium 5.2 mmol/L (3.3-5.1); Sodium Level 135 mmol/L (133-145)
== END | disposition home or self-care (01) ==
LOC: LAB 09:04
PROVIDERS: Physician Assistant Medical; PCP Family Medicine; Referring Provider Internal Medicine Cardiovascular Disease; Visit Provider Internal Medicine Cardiovascular Disease
DX: R06.02 Shortness of breath (principal); Z51.81 Encounter for therapeutic drug level monitoring; Z79.899 Other long term (current) drug therapy
CPT/HCPCS: 36415; 80048

== ENCOUNTER → 2024-07-09 | Outpatient (CLI) | payer MEDICARE, SELFPAY | END | disposition home or self-care (01) | PROVIDERS: PCP Family Medicine; Referring Provider Nurse Practitioner Acute Care; Visit Provider Nurse Practitioner Acute Care | DX: G47.33 Obstructive sleep apnea (adult) (pediatric) (principal) | CPT/HCPCS: 95811 ==

== ENCOUNTER → 2024-07-11 | Outpatient (CLI) | payer MEDICARE, SELFPAY ==
[2024-07-12 11:12] LABS: Anion Gap 9 (5-15); BUN 20 mg/dL (4-19); BUN/Creat Ratio 19.2 RATIO (10-20); Carbon Dioxide 23.2 mmol/L (21.0-32.0); Chloride 103 mmol/L (98-108); Creatinine, Serum 1.03 mg/dL (0.70-1.20); EST Glomerular Filtration Rate 78 (>60); Glucose 134 mg/dL (70-99); Sodium Level 135 mmol/L (133-145)
== END | disposition home or self-care (01) ==
LOC: LAB 11:42
PROVIDERS: PCP Family Medicine; Referring Provider Physician Assistant Medical; Visit Provider Physician Assistant Medical
DX: I49.3 Ventricular premature depolarization (principal); Z51.81 Encounter for therapeutic drug level monitoring; Z79.899 Other long term (current) drug therapy
CPT/HCPCS: 36415; 80048

== ENCOUNTER → 2024-07-26 | Outpatient (CLI) | payer MEDICARE, SELFPAY | END | disposition home or self-care (01) | LOC: SL 17:14 | PROVIDERS: PCP Family Medicine; Referring Provider Nurse Practitioner Acute Care; Visit Provider Nurse Practitioner Acute Care | DX: Z46.89 Encounter for fitting and adjustment of other specified devices (principal) ==

== ENCOUNTER → 2025-01-01 | Outpatient (CLI) | payer MEDICARE, SELFPAY | END | disposition home or self-care (01) | LOC: SL 12:20 | PROVIDERS: PCP Family Medicine; Visit Provider Nurse Practitioner Acute Care | DX: Z46.89 Encounter for fitting and adjustment of other specified devices (principal) ==